=== PATIENT | male | born 1935 | race Caucasian/White ===

== ENCOUNTER → 2016-06-30 | Outpatient (REF) | payer MEDICARE, OTHER ==
[~2016-06-30] MED LIST: /AMLO25TA PO; /GLIM4TA PO; /MOM400 PO; /NITR4TASL SL; ASPI81TA85 PO; CALC500C2 PO; CAPTO25TA PO; CARV25TA PO; CLOP75TA2 PO; COLA50CA3 PO; GEMF600T PO; GLIM4TAB PO; IRON325T3 PO; JANU100T PO; LASI40TA PO; LEVS0.123 PO; MYLI40DR PO; NEXI20CA PO; PROAAER INH; SENO8.6T9 PO; SIMV20TA2 PO; SPIRIVA INH; TYLE325T5 PO
[2016-06-30 11:11] LABS: MEAN CORPUSCULAR HEMOGLOBIN 30.2 pg (27.0-33.0); MEAN CORPUSCULAR HGB CONC 33.5 g/dl (32.0-36.5); RED CELL DISTRIBUTION WIDTH 13.7 % (11.5-14.5); WHITE BLOOD COUNT 6.5 K/mm3 (4.0-10.0)
[2016-06-30 11:16] LABS: ALBUMIN 3.7 GM/DL (3.2-5.2); ALBUMIN/GLOBULIN RATIO 1.19 (1.00-1.93); BILIRUBIN,TOTAL 0.4 MG/DL (0.2-1.0); CALCIUM LEVEL 8.7 MG/DL (8.8-10.2); CREATININE FOR GFR 2.1 MG/DL (0.70-1.30); GLOMERULAR FILTRATION RATE 32.5 (>35); POTASSIUM SERUM 4.2 MEQ/L (3.5-5.1); TOTAL PROTEIN 6.8 GM/DL (6.4-8.2)
== END ==
LOC: M SFHCCLAY 06:55
PROVIDERS: ATTEND Family Medicine
DX: I63.9 Cerebral infarction, unspecified (principal); E11.29 Type 2 diabetes mellitus with other diabetic kidney complication

== ENCOUNTER → 2016-11-02 | Outpatient (REF) | payer MEDICARE, OTHER ==
[2016-11-02 12:27] LABS: ALBUMIN 3.8 GM/DL (3.2-5.2); CREATININE FOR GFR 2.46 MG/DL (0.70-1.30); MAGNESIUM LEVEL 2.3 MG/DL (1.8-2.4); PHOSPHORUS LEVEL 4.4 MG/DL (2.5-4.9); POTASSIUM SERUM 4.2 MEQ/L (3.5-5.1)
== END ==
LOC: M LABDRAWC 11:19
PROVIDERS: ATTEND Physician Assistant
DX: I50.32 Chronic diastolic (congestive) heart failure (principal); E83.42 Hypomagnesemia

== ENCOUNTER → 2016-12-30 | Outpatient (REF) | payer MEDICARE, OTHER ==
[~2016-12-30] MED LIST changes: +ASPI325T24 PO
[2016-12-30 11:51] LABS: MEAN CORPUSCULAR HEMOGLOBIN 31.1 pg (27.0-33.0); MEAN CORPUSCULAR HGB CONC 33.6 g/dl (32.0-36.5); MEAN CORPUSCULAR VOLUME 92.5 fl (80.0-96.0); RED CELL DISTRIBUTION WIDTH 13.4 % (11.5-14.5); WHITE BLOOD COUNT 6.4 K/mm3 (4.0-10.0)
[2016-12-30 12:23] LABS: ALBUMIN 4.2 GM/DL (3.2-5.2); ALBUMIN/GLOBULIN RATIO 1.27 (1.00-1.93); ALKALINE PHOSPHATASE 155 U/L (45-117); ALT/SGPT 14 U/L (12-78); ANION GAP 13 MEQ/L (8-16); AST/SGOT 12 U/L (15-37); BILIRUBIN,TOTAL 0.4 MG/DL (0.2-1.0); BLOOD UREA NITROGEN 52 MG/DL (7-18); CALCIUM LEVEL 9.2 MG/DL (8.8-10.2); CARBON DIOXIDE LEVEL 21 MEQ/L (21-32); CHLORIDE LEVEL 107 MEQ/L (98-107); CHOLESTEROL LEVEL 189 MG/DL (<200); CREATININE FOR GFR 2.22 MG/DL (0.70-1.30); FERRITIN 566 NG/ML (26-388); GLOMERULAR FILTRATION RATE 30.4 (>35); GLUCOSE, FASTING 87 MG/DL (83-110); SODIUM LEVEL 141 MEQ/L (136-145); TOTAL PROTEIN 7.5 GM/DL (6.4-8.2); TRIGLYCERIDES LEVEL 422 MG/DL (<150)
== END ==
LOC: M SFHCCLAY 06:48
PROVIDERS: ATTEND Family Medicine
DX: I63.9 Cerebral infarction, unspecified (principal); E11.29 Type 2 diabetes mellitus with other diabetic kidney complication

== ENCOUNTER 2017-04-21 06:16 | Emergency (ER) | payer MEDICARE, OTHER ==
[~2017-04-21] VITALS: Ht 172.7 cm; Wt 100.0 kg
[~2017-04-21 06:16] MED LIST changes: -ASPI325T24 PO
[2017-04-21] MEDS ORDERED: ALBUTEROL SULFATE 2.5 MG/0.5 ML INH NEB SOLN INH ONE (07:15)
[2017-04-21] MEDS: ASPIRIN 81 MG CHEW TABLET PO ONE ×2 (07:15→07:45)
[2017-04-21] MEDS ORDERED: methylPREDNISolone INJ 125 MG/2 ML VIAL (J2930) IV ONE (07:15)
[2017-04-21] MEDS ORDERED: IPRATROPIUM 0.5MG/ALBUTEROL 2.5MG INH SOL UD 3ML (DUONEB)(J7620) NEB ONE (07:15)
[2017-04-21 07:43] LABS: BASO # 0.1 10^3/uL (0.0-0.2); BASO % 0.8 % (0.0-1.0); EOS # 0.2 10^3/uL (0.0-0.50); EOS % 2.6 % (0.0-3.0); IMMATURE GRANULOCYTE % 0.3 % (0-0); LYMPH # 0.9 10^3/uL (1.5-4.5); LYMPH % 12.9 % (24.0-44.0); MEAN CORPUSCULAR HEMOGLOBIN 30.3 pg (27.0-33.0); MEAN CORPUSCULAR HGB CONC 33.4 g/dl (32.0-36.5); MEAN CORPUSCULAR VOLUME 90.6 fl (80.0-96.0); MONO # 0.6 10^3/uL (0.0-0.8); NEUTROPHILS # 5.5 10^3/uL (1.8-7.7); NEUTROPHILS % 75.4 % (36.0-66.0); PLATELET COUNT, AUTOMATED 227 10^3/uL (150-450); RED CELL DISTRIBUTION WIDTH 13.4 % (11.5-14.5); WHITE BLOOD COUNT 7.2 10^3/uL (4.0-10.0)
[2017-04-21] MEDS ORDERED: FUROSEMIDE 100 MG/10 ML VIAL (J1940) IV ONE (07:45)
[2017-04-21] MEDS ORDERED: ASPIRIN 325 MG TAB As Ordered ONE (07:48)
[2017-04-21 07:51] LABS: ABG BASE EXCESS -2.7 (-2.0-2.0); ABG PARTIAL PRESSURE CO2 38.1 mmHg (35.0-45.0); ABG PARTIAL PRESSURE O2 79.2 mmHg (75.0-100.0); ABG STANDARD HCO3 22.2 MEQ/L (22.0-26.0); ABG TOTAL CO2 23.2 MEQ/L (23.0-31.0)
[2017-04-21 07:59] LABS: INR 1.06
--- NOTE | 2017-04-21 08:05 | REP ---
Portable chest, 07:16 a.m., single AP view, the patient semi upright: Comparison is 05/12/2014. The interstitium is diffusely indistinct compatible with interstitial infiltrates. Cardiomegaly and sternotomy wires are unchanged. The liliana, mediastinum, bony thorax are unchanged. Sternotomy wires are again identified. Impression: Interstitial infiltrates. Chronic cardiomegaly. Sternotomy wires. Signed by Kuldeep Medina MD 04/21/2017 07:57 A
[2017-04-21] MEDS ORDERED: ASPI325T24 PO (08:07)
[2017-04-21 08:21] LABS: ALBUMIN 3.4 GM/DL (3.2-5.2); ALBUMIN/GLOBULIN RATIO 0.92 (1.00-1.93); BILIRUBIN,DIRECT 0.1 MG/DL (0.0-0.2); BILIRUBIN,TOTAL 0.4 MG/DL (0.2-1.0); CREATININE FOR GFR 1.98 MG/DL (0.70-1.30); GLOMERULAR FILTRATION RATE 34.7 (>35); POTASSIUM SERUM 3.8 MEQ/L (3.5-5.1); THYROXINE (T4) 4.8 UG/DL (4.5-12.0); TOTAL PROTEIN 7.1 GM/DL (6.4-8.2)
[2017-04-21] MEDS ORDERED: CLOPIDOGREL 75 MG TAB PO ONE (08:45)
[2017-04-21 09:45] VITALS: BP 194/94
[2017-04-21] MEDS ORDERED: CARVedilol 12.5 MG TAB PO ONE (09:45)
[2017-04-21 09:53] VITALS: BP 194/92
--- NOTE | 2017-04-22 07:18 | ECGEPIP ---
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
== END 2017-04-21 09:57 | disposition short-term general hospital (02) ==
LOC: M ED 07:24
DX: I21.4 Non-ST elevation (NSTEMI) myocardial infarction (principal); I25.10 Atherosclerotic heart disease of native coronary artery without angina pectoris; J44.9 Chronic obstructive pulmonary disease, unspecified; I10 Essential (primary) hypertension; E11.9 Type 2 diabetes mellitus without complications; I25.2 Old myocardial infarction; F17.210 Nicotine dependence, cigarettes, uncomplicated; Z95.1 Presence of aortocoronary bypass graft; Z79.899 Other long term (current) drug therapy; Z79.82 Long term (current) use of aspirin; Z88.1 Allergy status to other antibiotic agents; Z88.0 Allergy status to penicillin; Z88.8 Allergy status to other drugs, medicaments and biological substances
CPT/HCPCS: 36415; 36600; 71010; 80048; 80076; 82550; 82553; 82803; 83605; 83880; 84436; 84443; 84484; 85025; 85610; 87040; 87804; 93005; 93041; 94640; 96374; 96375; 99285; J1940; J2930

== ENCOUNTER → 2017-05-16 | Outpatient (REF) | payer MEDICARE, OTHER ==
[~2017-05-16] MED LIST changes: +ASPI325T24 PO
[2017-05-16 12:44] LABS: ALBUMIN 3.7 GM/DL (3.2-5.2); CALCIUM LEVEL 9.3 MG/DL (8.8-10.2); GLOMERULAR FILTRATION RATE 34.3 (>35); PHOSPHORUS LEVEL 3.7 MG/DL (2.5-4.9); POTASSIUM SERUM 3.9 MEQ/L (3.5-5.1)
== END ==
LOC: M LAB REF 11:40
PROVIDERS: ATTEND Physician Assistant
DX: I50.32 Chronic diastolic (congestive) heart failure (principal)

== ENCOUNTER → 2017-06-29 | Outpatient (REF) | payer MEDICARE, OTHER ==
[2017-06-29 11:47] LABS: HEMATOCRIT 38.5 % (42.0-52.0); HEMOGLOBIN 12.8 g/dl (14.0-18.0); MEAN CORPUSCULAR HEMOGLOBIN 29.6 pg (27.0-33.0); MEAN CORPUSCULAR HGB CONC 33.2 g/dl (32.0-36.5); MEAN CORPUSCULAR VOLUME 88.9 fl (80.0-96.0); PLATELET COUNT, AUTOMATED 188 10^3/uL (150-450); RED BLOOD COUNT 4.33 10^6/uL (4.30-6.10); RED CELL DISTRIBUTION WIDTH 13.4 % (11.5-14.5); WHITE BLOOD COUNT 5.8 10^3/uL (4.0-10.0)
[2017-06-29 12:03] LABS: ESTIMATED AVERAGE GLUCOSE 151 MG/DL (60-110); HEMOGLOBIN A1c 6.9 %
[2017-06-29 12:17] LABS: ALBUMIN 3.7 GM/DL (3.2-5.2); ALBUMIN/GLOBULIN RATIO 1.23 (1.00-1.93); ALKALINE PHOSPHATASE 128 U/L (45-117); ALT/SGPT 12 U/L (12-78); ANION GAP 10 MEQ/L (8-16); AST/SGOT 14 U/L (7-37); BILIRUBIN,TOTAL 0.3 MG/DL (0.2-1.0); BLOOD UREA NITROGEN 29 MG/DL (7-18); CALCIUM LEVEL 8.6 MG/DL (8.8-10.2); CARBON DIOXIDE LEVEL 25 MEQ/L (21-32); CHLORIDE LEVEL 109 MEQ/L (98-107); CHOLESTEROL LEVEL 157 MG/DL (<200); CHOLESTEROL RISK RATIO 4.906 (<5); CREATININE FOR GFR 1.89 MG/DL (0.70-1.30); FERRITIN 461 NG/ML (26-388); GLOMERULAR FILTRATION RATE 36.6 (>35); GLUCOSE, FASTING 123 MG/DL (83-110); HDL CHOLESTEROL 32 MG/DL (>40); LDL CHOLESTEROL 78.6 MG/DL (<100); NON-HDL-C 125 MG/DL; POTASSIUM SERUM 3.6 MEQ/L (3.5-5.1); SODIUM LEVEL 144 MEQ/L (136-145); TOTAL PROTEIN 6.7 GM/DL (6.4-8.2); TRIGLYCERIDES LEVEL 232 MG/DL (<150)
== END ==
LOC: M SFHCCLAY 06:55
DX: I63.9 Cerebral infarction, unspecified (principal); E11.29 Type 2 diabetes mellitus with other diabetic kidney complication
CPT/HCPCS: 80053

== ENCOUNTER → 2017-08-10 | Outpatient (REF) | payer MEDICARE, OTHER ==
[2017-08-10 11:43] LABS: ANION GAP 12 MEQ/L (8-16); BLOOD UREA NITROGEN 50 MG/DL (7-18); CALCIUM LEVEL 9.3 MG/DL (8.8-10.2); CARBON DIOXIDE LEVEL 24 MEQ/L (21-32); CHLORIDE LEVEL 107 MEQ/L (98-107); CREATININE FOR GFR 2.23 MG/DL (0.70-1.30); GLOMERULAR FILTRATION RATE 30.3 (>35); GLUCOSE, FASTING 144 MG/DL (70-100); POTASSIUM SERUM 3.8 MEQ/L (3.5-5.1); SODIUM LEVEL 143 MEQ/L (136-145)
== END ==
LOC: M LABDRAWC 11:07
DX: I50.32 Chronic diastolic (congestive) heart failure (principal)
CPT/HCPCS: 80069

== ENCOUNTER → 2018-01-06 | Outpatient (REF) | payer MEDICARE, OTHER ==
[2018-01-06 12:03] LABS: ALBUMIN 3.8 GM/DL (3.2-5.2); ALBUMIN/GLOBULIN RATIO 1.03 (1.00-1.93); ALKALINE PHOSPHATASE 145 U/L (45-117); ALT/SGPT 15 U/L (12-78); ANION GAP 12 MEQ/L (8-16); AST/SGOT 10 U/L (7-37); BILIRUBIN,TOTAL 0.4 MG/DL (0.2-1.0); BLOOD UREA NITROGEN 75 MG/DL (7-18); CALCIUM LEVEL 8.7 MG/DL (8.8-10.2); CARBON DIOXIDE LEVEL 23 MEQ/L (21-32); CHLORIDE LEVEL 106 MEQ/L (98-107); CHOLESTEROL LEVEL 151 MG/DL (<200); CHOLESTEROL RISK RATIO 4.441 (<5); CREATININE FOR GFR 2.54 MG/DL (0.70-1.30); FERRITIN 528 NG/ML (26-388); GLUCOSE, FASTING 145 MG/DL (70-100); HDL CHOLESTEROL 34 MG/DL (>40); NON-HDL-C 117 MG/DL; POTASSIUM SERUM 4.5 MEQ/L (3.5-5.1); SODIUM LEVEL 141 MEQ/L (136-145); TOTAL PROTEIN 7.5 GM/DL (6.4-8.2); TRIGLYCERIDES LEVEL 300 MG/DL (<150)
[2018-01-06 12:18] LABS: CREATININE, URINE 57.1 MG/DL; MAU/CREAT RATIO 593.6 MCG/MG (0.0-30.0)
[2018-01-06 12:45] LABS: ESTIMATED AVERAGE GLUCOSE 171 MG/DL (60-110); HEMOGLOBIN A1c 7.6 %
== END ==
LOC: M SFHCCLAY 06:58
DX: I63.9 Cerebral infarction, unspecified (principal)
CPT/HCPCS: 80053

== ENCOUNTER → 2018-03-13 | Outpatient (REF) | payer MEDICARE, OTHER ==
[2018-03-13 13:45] LABS: ANION GAP 11 MEQ/L (8-16); BLOOD UREA NITROGEN 45 MG/DL (7-18); CARBON DIOXIDE LEVEL 25 MEQ/L (21-32); CHLORIDE LEVEL 107 MEQ/L (98-107); CREATININE FOR GFR 2.46 MG/DL (0.70-1.30); GLUCOSE, FASTING 73 MG/DL (70-100); POTASSIUM SERUM 3.9 MEQ/L (3.5-5.1); SODIUM LEVEL 143 MEQ/L (136-145)
== END ==
LOC: M LABDRAWC 11:21
DX: I50.32 Chronic diastolic (congestive) heart failure (principal)
CPT/HCPCS: 80048

== ENCOUNTER 2018-04-03 08:40 | Inpatient (IN) | payer MEDICARE, OTHER ==
[2018-04-03 09:35] LABS: BASO % 0.5 % (0.0-1.0); EOS # 0.1 10^3/uL (0.0-0.50); EOS % 1.1 % (0.0-3.0); HEMATOCRIT 38.7 % (42.0-52.0); HEMOGLOBIN 12.6 g/dl (13.5-17.5); IMMATURE GRANULOCYTE % 0.3 % (0-3.0); LYMPH # 1.1 10^3/uL (1.5-4.5); LYMPH % 12.1 % (24.0-44.0); MEAN CORPUSCULAR HEMOGLOBIN 30.5 pg (27.0-33.0); MEAN CORPUSCULAR HGB CONC 32.6 g/dl (32.0-36.5); MEAN CORPUSCULAR VOLUME 93.7 fl (80.0-96.0); MONO % 11.8 % (0.0-5.0); NEUTROPHILS # 6.5 10^3/uL (1.8-7.7); NEUTROPHILS % 74.2 % (36.0-66.0); PLATELET COUNT, AUTOMATED 164 10^3/uL (150-450); RED BLOOD COUNT 4.13 10^6/uL (4.30-6.10); RED CELL DISTRIBUTION WIDTH 13.6 % (11.5-14.5); WHITE BLOOD COUNT 8.8 10^3/uL (4.0-10.0)
[2018-04-03 09:47] LABS: INR 1.19; PROTHROMBIN TIME 15.3 SECONDS (12.1-14.4)
[2018-04-03 10:07] LABS: ALBUMIN 3.3 GM/DL (3.2-5.2); ALBUMIN/GLOBULIN RATIO 0.79 (1.00-1.93); ALKALINE PHOSPHATASE 157 U/L (45-117); ALT/SGPT 8 U/L (12-78); ANION GAP 10 MEQ/L (8-16); AST/SGOT 13 U/L (7-37); BILIRUBIN,DIRECT 0.3 MG/DL (0.0-0.2); BILIRUBIN,TOTAL 0.5 MG/DL (0.2-1.0); BLOOD UREA NITROGEN 42 MG/DL (7-18); CALCIUM LEVEL 9.1 MG/DL (8.8-10.2); CARBON DIOXIDE LEVEL 25 MEQ/L (21-32); CHLORIDE LEVEL 107 MEQ/L (98-107); CPK CREATINE PHOSPHOKINASE 139 U/L (39-308); CREATININE FOR GFR 2.63 MG/DL (0.70-1.30); GLUCOSE, FASTING 114 MG/DL (70-100); LIPASE 88 U/L (73-393); MB/CK RELATIVE INDEX 1.01 (< OR =4); POTASSIUM SERUM 3.7 MEQ/L (3.5-5.1); SODIUM LEVEL 142 MEQ/L (136-145); TOTAL PROTEIN 7.5 GM/DL (6.4-8.2); TROPONIN I 0.05 NG/ML (< 0.10)
[2018-04-03] MEDS ORDERED: DOCUSATE SODIUM 100 MG CAP PO (12:00)
[2018-04-03] MEDS ORDERED: DEXTROSE 50% 50 ML SYRINGE IV (12:00)
[2018-04-03] MEDS ORDERED: GLUCAGON FOR INJ 1 MG VIAL (J1610) SC (12:00)
[2018-04-03] MEDS ORDERED: GLUCOSE 4 GM CHEW TABLET PO (12:00)
[2018-04-03] MEDS ORDERED: ACETAMINOPHEN TAB 650MG DOSE (2X325MG) PO (12:00)
[2018-04-03] MEDS ORDERED: CALCIUM CARBONATE 500 MG CHEW U/D PO (12:00)
[2018-04-03] MEDS: HumaLOG INSULIN (NovoLOG) PER UNIT SC ×3 (12:43→20:48)
[2018-04-03 12:44] LABS: BEDSIDE GLUCOSE 100 MG/DL (83-110)
[2018-04-03] MEDS ORDERED: SLF 3 ML SYR IV (15:15)
[2018-04-03 16:42] LABS: BEDSIDE GLUCOSE 216 MG/DL (83-110)
[2018-04-03] MEDS: GLIMEPIRIDE 2 MG TAB PO (17:39)
[2018-04-03 18:43] LABS: CPK CREATINE PHOSPHOKINASE 200 U/L (39-308); TROPONIN I 0.04 NG/ML (< 0.10)
[2018-04-03 20:05] LABS: BEDSIDE GLUCOSE 130 MG/DL (83-110)
[2018-04-03] MEDS: CARVedilol 12.5 MG TAB PO (20:46)
[2018-04-03] MEDS: ATORVASTATIN 20 MG TAB PO (20:46)
[2018-04-03] MEDS: GEMFIBROZIL 600 MG TAB PO (20:47)
[2018-04-03] MEDS: amLODIPine 5 MG TAB PO (20:47)
[2018-04-03] MEDS: HEPARIN SOD (PORCINE) 5000 UNITS/ML VIAL SQ (20:48)
[2018-04-03] MEDS: SLF 3 ML SYR IV (20:48)
[2018-04-04 00:36] LABS: CPK CREATINE PHOSPHOKINASE 279 U/L (39-308); MB/CK RELATIVE INDEX 0.57 (< OR =4); TROPONIN I 0.05 NG/ML (< 0.10)
[2018-04-04] MEDS: SLF 3 ML SYR IV ×3 (06:12→20:18)
[2018-04-04] MEDS: HEPARIN SOD (PORCINE) 5000 UNITS/ML VIAL SQ ×3 (06:12→20:17)
[2018-04-04 06:57] LABS: BEDSIDE GLUCOSE 107 MG/DL (83-110)
[2018-04-04] MEDS: HumaLOG INSULIN (NovoLOG) PER UNIT SC ×4 (07:30→20:17)
[2018-04-04] MEDS: CLOPIDOGREL 75 MG TAB PO (08:16)
[2018-04-04] MEDS: GEMFIBROZIL 600 MG TAB PO ×2 (08:16→20:17)
[2018-04-04] MEDS: ASPIRIN 325 MG TAB PO (08:16)
[2018-04-04] MEDS: SITagliptin 50 MG TAB (JANUVIA) PO (08:16)
[2018-04-04] MEDS: CARVedilol 12.5 MG TAB PO ×2 (08:17→20:17)
[2018-04-04] MEDS: FERROUS SULFATE 325MG TAB PO (08:17)
[2018-04-04] MEDS: GLIMEPIRIDE 2 MG TAB PO ×2 (08:17→17:46)
[2018-04-04] MEDS: TIOTROPIUM INHALER/CAPSULE (SPIRIVA) INH (08:23)
[2018-04-04 11:36] LABS: BEDSIDE GLUCOSE 241 MG/DL (83-110)
[2018-04-04 17:05] LABS: BEDSIDE GLUCOSE 117 MG/DL (83-110)
[2018-04-04 20:13] LABS: BEDSIDE GLUCOSE 214 MG/DL (83-110)
[2018-04-04] MEDS: ATORVASTATIN 20 MG TAB PO (20:17)
[2018-04-04] MEDS: amLODIPine 5 MG TAB PO (20:17)
[2018-04-05 06:22] LABS: HEMATOCRIT 36.2 % (42.0-52.0); HEMOGLOBIN 11.8 g/dl (13.5-17.5); MEAN CORPUSCULAR HEMOGLOBIN 30.1 pg (27.0-33.0); MEAN CORPUSCULAR HGB CONC 32.6 g/dl (32.0-36.5); MEAN CORPUSCULAR VOLUME 92.3 fl (80.0-96.0); PLATELET COUNT, AUTOMATED 177 10^3/uL (150-450); RED BLOOD COUNT 3.92 10^6/uL (4.30-6.10); RED CELL DISTRIBUTION WIDTH 13.2 % (11.5-14.5); WHITE BLOOD COUNT 5.4 10^3/uL (4.0-10.0)
[2018-04-05] MEDS: HEPARIN SOD (PORCINE) 5000 UNITS/ML VIAL SQ ×3 (06:49→20:05)
[2018-04-05] MEDS: SLF 3 ML SYR IV ×3 (06:49→20:05)
[2018-04-05 06:57] LABS: ALBUMIN 2.6 GM/DL (3.2-5.2); ALBUMIN/GLOBULIN RATIO 0.58 (1.00-1.93); ALKALINE PHOSPHATASE 140 U/L (45-117); ALT/SGPT 16 U/L (12-78); ANION GAP 10 MEQ/L (8-16); AST/SGOT 30 U/L (7-37); BILIRUBIN,TOTAL 0.7 MG/DL (0.2-1.0); BLOOD UREA NITROGEN 43 MG/DL (7-18); CALCIUM LEVEL 8.8 MG/DL (8.8-10.2); CARBON DIOXIDE LEVEL 24 MEQ/L (21-32); CHLORIDE LEVEL 108 MEQ/L (98-107); CREATININE FOR GFR 2.06 MG/DL (0.70-1.30); GLOMERULAR FILTRATION RATE 33.1 (>35); GLUCOSE, FASTING 102 MG/DL (70-100); MAGNESIUM LEVEL 2.2 MG/DL (1.8-2.4); POTASSIUM SERUM 3.4 MEQ/L (3.5-5.1); SODIUM LEVEL 142 MEQ/L (136-145); TOTAL PROTEIN 7.1 GM/DL (6.4-8.2)
[2018-04-05] MEDS: TIOTROPIUM INHALER/CAPSULE (SPIRIVA) INH (08:09)
[2018-04-05] MEDS: SITagliptin 50 MG TAB (JANUVIA) PO (09:05)
[2018-04-05] MEDS: HumaLOG INSULIN (NovoLOG) PER UNIT SC ×4 (09:05→20:01)
[2018-04-05] MEDS: ASPIRIN 325 MG TAB PO (09:05)
[2018-04-05] MEDS: GEMFIBROZIL 600 MG TAB PO ×2 (09:06→20:04)
[2018-04-05] MEDS: CLOPIDOGREL 75 MG TAB PO (09:06)
[2018-04-05] MEDS: GLIMEPIRIDE 2 MG TAB PO ×2 (09:06→17:19)
[2018-04-05] MEDS: FERROUS SULFATE 325MG TAB PO (09:06)
[2018-04-05] MEDS: CARVedilol 12.5 MG TAB PO ×2 (09:07→20:04)
[2018-04-05 12:09] LABS: BEDSIDE GLUCOSE 162 MG/DL (83-110)
[2018-04-05] MEDS: FUROSEMIDE 20 MG TAB PO ×2 (13:02→16:39)
[2018-04-05 16:35] LABS: BEDSIDE GLUCOSE 199 MG/DL (83-110)
[2018-04-05] MEDS: ATORVASTATIN 20 MG TAB PO (20:03)
[2018-04-05] MEDS: amLODIPine 5 MG TAB PO (20:04)
[2018-04-05 20:26] LABS: BEDSIDE GLUCOSE 168 MG/DL (83-110)
[2018-04-06] MEDS: HEPARIN SOD (PORCINE) 5000 UNITS/ML VIAL SQ (06:00)
[2018-04-06] MEDS: SLF 3 ML SYR IV (06:00)
[2018-04-06 06:29] LABS: HEMATOCRIT 33.9 % (42.0-52.0); HEMOGLOBIN 10.9 g/dl (13.5-17.5); MEAN CORPUSCULAR HEMOGLOBIN 29.9 pg (27.0-33.0); MEAN CORPUSCULAR HGB CONC 32.2 g/dl (32.0-36.5); MEAN CORPUSCULAR VOLUME 92.9 fl (80.0-96.0); PLATELET COUNT, AUTOMATED 181 10^3/uL (150-450); RED BLOOD COUNT 3.65 10^6/uL (4.30-6.10); RED CELL DISTRIBUTION WIDTH 13.1 % (11.5-14.5); WHITE BLOOD COUNT 5.5 10^3/uL (4.0-10.0)
[2018-04-06 06:45] LABS: ALBUMIN 2.5 GM/DL (3.2-5.2); ALBUMIN/GLOBULIN RATIO 0.54 (1.00-1.93); ALKALINE PHOSPHATASE 135 U/L (45-117); ALT/SGPT 24 U/L (12-78); ANION GAP 10 MEQ/L (8-16); AST/SGOT 42 U/L (7-37); BILIRUBIN,TOTAL 0.6 MG/DL (0.2-1.0); BLOOD UREA NITROGEN 49 MG/DL (7-18); CALCIUM LEVEL 8.9 MG/DL (8.8-10.2); CARBON DIOXIDE LEVEL 25 MEQ/L (21-32); CHLORIDE LEVEL 108 MEQ/L (98-107); CREATININE FOR GFR 2.19 MG/DL (0.70-1.30); GLOMERULAR FILTRATION RATE 30.8 (>35); GLUCOSE, FASTING 61 MG/DL (70-100); MAGNESIUM LEVEL 2.3 MG/DL (1.8-2.4); POTASSIUM SERUM 3.6 MEQ/L (3.5-5.1); SODIUM LEVEL 143 MEQ/L (136-145); TOTAL PROTEIN 7.1 GM/DL (6.4-8.2)
[2018-04-06] MEDS: HumaLOG INSULIN (NovoLOG) PER UNIT SC ×2 (07:30→12:00)
[2018-04-06 07:52] LABS: BEDSIDE GLUCOSE 96 MG/DL (83-110)
[2018-04-06] MEDS: TIOTROPIUM INHALER/CAPSULE (SPIRIVA) INH (07:58)
[2018-04-06] MEDS: SITagliptin 50 MG TAB (JANUVIA) PO (08:51)
[2018-04-06] MEDS: CLOPIDOGREL 75 MG TAB PO (08:51)
[2018-04-06] MEDS: GEMFIBROZIL 600 MG TAB PO (08:52)
[2018-04-06] MEDS: FERROUS SULFATE 325MG TAB PO (08:52)
[2018-04-06] MEDS: POTASSIUM CHLORIDE 10 MEQ SR TABLET PO (08:52)
[2018-04-06] MEDS: ASPIRIN 325 MG TAB PO (08:52)
[2018-04-06] MEDS: FUROSEMIDE 20 MG TAB PO (08:52)
[2018-04-06] MEDS: CARVedilol 12.5 MG TAB PO (08:53)
[2018-04-06] MEDS: GLIMEPIRIDE 2 MG TAB PO (08:53)
[2018-04-07 14:26] LABS: BEDSIDE GLUCOSE 211 MG/DL (83-110)
== END 2018-04-06 13:12 | disposition home health service (06) | DRG 312 ==
LOC: M MSPAV 04-06 09:38 → M ED 08:40 → M ED INP 11:47 → M PCU 15:05
DX: I95.1 Orthostatic hypotension (principal); N18.4 Chronic kidney disease, stage 4 (severe); I50.32 Chronic diastolic (congestive) heart failure; I25.10 Atherosclerotic heart disease of native coronary artery without angina pectoris; E11.22 Type 2 diabetes mellitus with diabetic chronic kidney disease; T50.2X5A Adverse effect of carbonic-anhydrase inhibitors, benzothiadiazides and other diuretics, initial encounter; J44.9 Chronic obstructive pulmonary disease, unspecified; I50.812 Chronic right heart failure; R26.89 Other abnormalities of gait and mobility; Z95.1 Presence of aortocoronary bypass graft; Z86.73 Personal history of transient ischemic attack (TIA), and cerebral infarction without residual deficits; Z79.82 Long term (current) use of aspirin; Z79.899 Other long term (current) drug therapy; Z79.02 Long term (current) use of antithrombotics/antiplatelets; Z88.0 Allergy status to penicillin; Z88.1 Allergy status to other antibiotic agents; R09.02 Hypoxemia; Z99.81 Dependence on supplemental oxygen; Z79.84 Long term (current) use of oral hypoglycemic drugs; I27.20 Pulmonary hypertension, unspecified

== ENCOUNTER 2018-04-10 09:12 | Inpatient (IN) | payer MEDICARE, OTHER ==
[2018-04-10] MEDS: TIOTROPIUM INHALER/CAPSULE (SPIRIVA) INH (08:00)
[2018-04-10] MEDS ORDERED: NS 1,000 ML IV (09:26)
[2018-04-10] MEDS: IPRATROPIUM 0.5MG/ALBUTEROL 2.5MG INH SOL UD 3ML (DUONEB)(J7620) NEB ×3 (09:39→20:34)
[2018-04-10] MEDS: ALBUTEROL SULFATE 2.5 MG/0.5 ML INH NEB SOLN INH (09:39)
[2018-04-10 09:53] LABS: BASO % 0.5 % (0.0-1.0); EOS # 0.2 10^3/uL (0.0-0.50); EOS % 2.1 % (0.0-3.0); HEMOGLOBIN 11.9 g/dl (13.5-17.5); IMMATURE GRANULOCYTE % 1.7 % (0-3.0); LYMPH # 0.8 10^3/uL (1.5-4.5); LYMPH % 10.4 % (24.0-44.0); MEAN CORPUSCULAR HEMOGLOBIN 29.8 pg (27.0-33.0); MEAN CORPUSCULAR HGB CONC 31.3 g/dl (32.0-36.5); MONO # 0.7 10^3/uL (0.0-0.8); MONO % 8.3 % (0.0-5.0); NEUTROPHILS # 6.2 10^3/uL (1.8-7.7); PLATELET COUNT, AUTOMATED 254 10^3/uL (150-450); RED CELL DISTRIBUTION WIDTH 13.7 % (11.5-14.5)
[2018-04-10 09:55] LABS: ABG BASE EXCESS -0.9 (-2.0-2.0); ABG HCO3 23.2 MEQ/L (22.0-26.0); ABG O2 SATURATION 99.4 % (95.0-99.0); ABG PARTIAL PRESSURE CO2 36.1 mmHg (35.0-45.0); ABG PARTIAL PRESSURE O2 205.2 mmHg (75.0-100.0); ABG STANDARD HCO3 23.8 MEQ/L (22.0-26.0); ABG TOTAL CO2 24.3 MEQ/L (23.0-31.0); ABG pH (ARTERIAL) 7.425 UNITS (7.350-7.450)
[2018-04-10 10:05] LABS: INR 1.26
[2018-04-10 10:06] LABS: PARTIAL THROMBOPLASTIN TIME 36.1 SECONDS (25.4-37.6)
[2018-04-10 10:27] LABS: ALBUMIN 2.4 GM/DL (3.2-5.2); ALKALINE PHOSPHATASE 186 U/L (45-117); ALT/SGPT 27 U/L (12-78); ANION GAP 9 MEQ/L (8-16); AST/SGOT 30 U/L (7-37); BILIRUBIN,DIRECT 0.4 MG/DL (0.0-0.2); BILIRUBIN,TOTAL 0.5 MG/DL (0.2-1.0); BLOOD UREA NITROGEN 49 MG/DL (7-18); CALCIUM LEVEL 9.2 MG/DL (8.8-10.2); CARBON DIOXIDE LEVEL 26 MEQ/L (21-32); CHLORIDE LEVEL 111 MEQ/L (98-107); CPK CREATINE PHOSPHOKINASE 241 U/L (39-308); CREATININE FOR GFR 2.03 MG/DL (0.70-1.30); FREE T4 0.82 NG/DL (0.76-1.46); GLOMERULAR FILTRATION RATE 33.6 (>35); GLUCOSE, FASTING 72 MG/DL (70-100); LIPASE 156 U/L (73-393); MB/CK RELATIVE INDEX 0.71 (< OR =4); NT-PRO BNP 2915 PG/ML (<450); POTASSIUM SERUM 3.5 MEQ/L (3.5-5.1); SODIUM LEVEL 146 MEQ/L (136-145); TOTAL PROTEIN 7.2 GM/DL (6.4-8.2); TROPONIN I 0.03 NG/ML (< 0.10)
[2018-04-10] MEDS ORDERED: NITROGLYCERIN 0.4 MG SUBL TABLET SL (12:30)
[2018-04-10] MEDS ORDERED: DEXTROSE 50% 50 ML SYRINGE IV (12:30)
[2018-04-10] MEDS ORDERED: GLUCAGON FOR INJ 1 MG VIAL (J1610) SC (12:30)
[2018-04-10] MEDS ORDERED: CALCIUM CARBONATE 500 MG CHEW U/D PO (12:30)
[2018-04-10] MEDS: CARVedilol 12.5 MG TAB PO ×2 (15:00→20:44)
[2018-04-10] MEDS: HEPARIN SOD (PORCINE) 5000 UNITS/ML VIAL SC ×2 (15:00→20:52)
[2018-04-10] MEDS: CLOPIDOGREL 75 MG TAB PO (15:01)
[2018-04-10] MEDS: FERROUS SULFATE 325MG TAB PO (15:01)
[2018-04-10] MEDS: GEMFIBROZIL 600 MG TAB PO ×2 (15:01→20:45)
[2018-04-10] MEDS: amLODIPine 10 MG TAB PO (15:01)
[2018-04-10] MEDS: SENOKOT S TAB PO ×2 (15:01→20:45)
[2018-04-10] MEDS: ERYTHROMYCIN OPHTH OINT OU ×2 (15:02→20:45)
[2018-04-10] MEDS: FUROSEMIDE 40 MG/4 ML VIAL (J1940) IV (15:02)
[2018-04-10 15:42] LABS: CPK CREATINE PHOSPHOKINASE 230 U/L (39-308); MB/CK RELATIVE INDEX 0.65 (< OR =4); TROPONIN I 0.04 NG/ML (< 0.10)
[2018-04-10 16:40] LABS: BEDSIDE GLUCOSE 115 MG/DL (83-110)
[2018-04-10] MEDS: HumaLOG INSULIN (NovoLOG) PER UNIT SC ×2 (18:51→20:45)
[2018-04-10 20:30] LABS: KETONE, URINE AUTO RFX NEGATIVE (NEGATIVE); LEUKOCYTE ESTERASE UR AUTO RFX NEGATIVE (NEGATIVE); NITRITE, URINE AUTO RFX NEGATIVE (NEGATIVE); RBC, URINE AUTO RFX 1 /HPF (0-3); SQUAM EPITHELIAL CELL UR AURFX 0 /HPF (0-6); WBC, URINE AUTO RFX 0 /HPF (0-3)
[2018-04-10 20:33] LABS: BEDSIDE GLUCOSE 69 MG/DL (83-110)
[2018-04-10] MEDS: CALCITRIOL 0.25 MCG CAP (S0169) PO (20:44)
[2018-04-10] MEDS: ATORVASTATIN 20 MG TAB PO (20:44)
[2018-04-10 21:09] LABS: BEDSIDE GLUCOSE 82 MG/DL (83-110)
[2018-04-10 21:49] LABS: CPK CREATINE PHOSPHOKINASE 249 U/L (39-308); MB/CK RELATIVE INDEX 0.64 (< OR =4); TROPONIN I 0.04 NG/ML (< 0.10)
[2018-04-11] MEDS: IPRATROPIUM 0.5MG/ALBUTEROL 2.5MG INH SOL UD 3ML (DUONEB)(J7620) NEB ×5 (01:27→20:49)
[2018-04-11 03:58] LABS: BEDSIDE GLUCOSE 61 MG/DL (83-110)
[2018-04-11 04:26] LABS: BEDSIDE GLUCOSE 83 MG/DL (83-110)
[2018-04-11] MEDS: HEPARIN SOD (PORCINE) 5000 UNITS/ML VIAL SC ×3 (05:15→21:24)
[2018-04-11 05:38] LABS: HEMATOCRIT 35.8 % (42.0-52.0); HEMOGLOBIN 11.3 g/dl (13.5-17.5); MEAN CORPUSCULAR HEMOGLOBIN 29.4 pg (27.0-33.0); MEAN CORPUSCULAR HGB CONC 31.6 g/dl (32.0-36.5); MEAN CORPUSCULAR VOLUME 93.2 fl (80.0-96.0); PLATELET COUNT, AUTOMATED 249 10^3/uL (150-450); RED BLOOD COUNT 3.84 10^6/uL (4.30-6.10); RED CELL DISTRIBUTION WIDTH 13.4 % (11.5-14.5); WHITE BLOOD COUNT 7.3 10^3/uL (4.0-10.0)
[2018-04-11 06:04] LABS: ANION GAP 10 MEQ/L (8-16); BLOOD UREA NITROGEN 45 MG/DL (7-18); CALCIUM LEVEL 8.6 MG/DL (8.8-10.2); CARBON DIOXIDE LEVEL 25 MEQ/L (21-32); CHLORIDE LEVEL 110 MEQ/L (98-107); CREATININE FOR GFR 1.83 MG/DL (0.70-1.30); GLOMERULAR FILTRATION RATE 37.9 (>35); GLUCOSE, FASTING 102 MG/DL (70-100); POTASSIUM SERUM 3.6 MEQ/L (3.5-5.1); SODIUM LEVEL 145 MEQ/L (136-145)
[2018-04-11] MEDS: HumaLOG INSULIN (NovoLOG) PER UNIT SC ×4 (07:30→20:11)
[2018-04-11] MEDS: TIOTROPIUM INHALER/CAPSULE (SPIRIVA) INH (07:55)
[2018-04-11] MEDS: FUROSEMIDE 40 MG/4 ML VIAL (J1940) IV ×2 (08:19→16:44)
[2018-04-11] MEDS: SENOKOT S TAB PO ×2 (08:19→20:20)
[2018-04-11] MEDS: GEMFIBROZIL 600 MG TAB PO ×2 (08:20→20:20)
[2018-04-11] MEDS: FERROUS SULFATE 325MG TAB PO (08:20)
[2018-04-11] MEDS: CLOPIDOGREL 75 MG TAB PO (08:20)
[2018-04-11] MEDS: amLODIPine 10 MG TAB PO (08:20)
[2018-04-11] MEDS: CARVedilol 12.5 MG TAB PO ×2 (08:20→20:20)
[2018-04-11] MEDS: ASPIRIN 325 MG TAB PO (08:20)
[2018-04-11] MEDS: ERYTHROMYCIN OPHTH OINT OU ×2 (08:28→20:21)
[2018-04-11 17:02] LABS: BEDSIDE GLUCOSE 110 MG/DL (83-110)
[2018-04-11 20:11] LABS: BEDSIDE GLUCOSE 135 MG/DL (83-110)
[2018-04-11] MEDS: ATORVASTATIN 20 MG TAB PO (20:19)
[2018-04-11] MEDS: CALCITRIOL 0.25 MCG CAP (S0169) PO (20:19)
[2018-04-12] MEDS: IPRATROPIUM 0.5MG/ALBUTEROL 2.5MG INH SOL UD 3ML (DUONEB)(J7620) NEB ×4 (02:00→19:38)
[2018-04-12 05:15] LABS: HEMATOCRIT 35.8 % (42.0-52.0); HEMOGLOBIN 11.5 g/dl (13.5-17.5); MEAN CORPUSCULAR HEMOGLOBIN 29.9 pg (27.0-33.0); MEAN CORPUSCULAR HGB CONC 32.1 g/dl (32.0-36.5); MEAN CORPUSCULAR VOLUME 93.2 fl (80.0-96.0); PLATELET COUNT, AUTOMATED 222 10^3/uL (150-450); RED BLOOD COUNT 3.84 10^6/uL (4.30-6.10); RED CELL DISTRIBUTION WIDTH 13.4 % (11.5-14.5); WHITE BLOOD COUNT 7.5 10^3/uL (4.0-10.0)
[2018-04-12] MEDS: HEPARIN SOD (PORCINE) 5000 UNITS/ML VIAL SC ×3 (05:41→20:14)
[2018-04-12 05:49] LABS: ANION GAP 9 MEQ/L (8-16); BLOOD UREA NITROGEN 42 MG/DL (7-18); CALCIUM LEVEL 8.7 MG/DL (8.8-10.2); CARBON DIOXIDE LEVEL 29 MEQ/L (21-32); CHLORIDE LEVEL 107 MEQ/L (98-107); CREATININE FOR GFR 1.82 MG/DL (0.70-1.30); GLOMERULAR FILTRATION RATE 38.2 (>35); GLUCOSE, FASTING 54 MG/DL (70-100); POTASSIUM SERUM 3.6 MEQ/L (3.5-5.1); SODIUM LEVEL 145 MEQ/L (136-145)
[2018-04-12 05:59] LABS: BEDSIDE GLUCOSE 56 MG/DL (83-110)
[2018-04-12] MEDS: GLUCOSE 4 GM CHEW TABLET PO (06:13)
[2018-04-12 06:38] LABS: BEDSIDE GLUCOSE 86 MG/DL (83-110)
[2018-04-12] MEDS: HumaLOG INSULIN (NovoLOG) PER UNIT SC ×3 (07:24→17:30)
[2018-04-12] MEDS: TIOTROPIUM INHALER/CAPSULE (SPIRIVA) INH (09:14)
[2018-04-12] MEDS: CARVedilol 12.5 MG TAB PO ×2 (09:20→20:13)
[2018-04-12] MEDS: ASPIRIN 325 MG TAB PO (09:20)
[2018-04-12] MEDS: FUROSEMIDE 40 MG/4 ML VIAL (J1940) IV ×3 (09:20→17:41)
[2018-04-12] MEDS: GEMFIBROZIL 600 MG TAB PO ×2 (09:20→20:12)
[2018-04-12] MEDS: FERROUS SULFATE 325MG TAB PO (09:20)
[2018-04-12] MEDS: amLODIPine 10 MG TAB PO (09:20)
[2018-04-12] MEDS: SENOKOT S TAB PO ×2 (09:20→20:13)
[2018-04-12] MEDS: CLOPIDOGREL 75 MG TAB PO (09:20)
[2018-04-12] MEDS: ERYTHROMYCIN OPHTH OINT OU ×2 (09:23→20:14)
[2018-04-12 09:55] LABS: ESTIMATED AVERAGE GLUCOSE 151 MG/DL (60-110); HEMOGLOBIN A1c 6.9 %
[2018-04-12 12:03] LABS: BEDSIDE GLUCOSE 260 MG/DL (83-110)
[2018-04-12 16:45] LABS: BEDSIDE GLUCOSE 118 MG/DL (83-110)
[2018-04-12 19:59] LABS: BEDSIDE GLUCOSE 123 MG/DL (83-110)
[2018-04-12] MEDS: CALCITRIOL 0.25 MCG CAP (S0169) PO (20:12)
[2018-04-12] MEDS: ATORVASTATIN 20 MG TAB PO (20:13)
[2018-04-13] MEDS: FUROSEMIDE 40 MG/4 ML VIAL (J1940) IV ×3 (00:18→17:18)
[2018-04-13] MEDS: IPRATROPIUM 0.5MG/ALBUTEROL 2.5MG INH SOL UD 3ML (DUONEB)(J7620) NEB ×4 (01:32→19:59)
[2018-04-13 06:11] LABS: HEMATOCRIT 35.2 % (42.0-52.0); HEMOGLOBIN 11.3 g/dl (13.5-17.5); MEAN CORPUSCULAR HEMOGLOBIN 29.5 pg (27.0-33.0); MEAN CORPUSCULAR HGB CONC 32.1 g/dl (32.0-36.5); MEAN CORPUSCULAR VOLUME 91.9 fl (80.0-96.0); PLATELET COUNT, AUTOMATED 233 10^3/uL (150-450); RED BLOOD COUNT 3.83 10^6/uL (4.30-6.10); RED CELL DISTRIBUTION WIDTH 13.1 % (11.5-14.5); WHITE BLOOD COUNT 7.7 10^3/uL (4.0-10.0)
[2018-04-13] MEDS: HEPARIN SOD (PORCINE) 5000 UNITS/ML VIAL SC ×3 (06:26→22:10)
[2018-04-13 06:29] LABS: ANION GAP 7 MEQ/L (8-16); BLOOD UREA NITROGEN 40 MG/DL (7-18); CALCIUM LEVEL 9.1 MG/DL (8.8-10.2); CARBON DIOXIDE LEVEL 31 MEQ/L (21-32); CHLORIDE LEVEL 106 MEQ/L (98-107); CREATININE FOR GFR 1.82 MG/DL (0.70-1.30); GLOMERULAR FILTRATION RATE 38.2 (>35); GLUCOSE, FASTING 46 MG/DL (70-100); POTASSIUM SERUM 3.2 MEQ/L (3.5-5.1); SODIUM LEVEL 144 MEQ/L (136-145)
[2018-04-13] MEDS: TIOTROPIUM INHALER/CAPSULE (SPIRIVA) INH (07:09)
[2018-04-13] MEDS: HumaLOG INSULIN (NovoLOG) PER UNIT SC ×3 (07:30→17:18)
[2018-04-13] MEDS: ASPIRIN 325 MG TAB PO (08:26)
[2018-04-13] MEDS: CLOPIDOGREL 75 MG TAB PO (08:26)
[2018-04-13] MEDS: FERROUS SULFATE 325MG TAB PO (08:26)
[2018-04-13] MEDS: amLODIPine 10 MG TAB PO (08:26)
[2018-04-13] MEDS: GEMFIBROZIL 600 MG TAB PO ×2 (08:26→22:09)
[2018-04-13] MEDS: SENOKOT S TAB PO ×2 (08:26→22:10)
[2018-04-13] MEDS: CARVedilol 12.5 MG TAB PO ×2 (08:27→22:09)
[2018-04-13] MEDS: ERYTHROMYCIN OPHTH OINT OU ×2 (08:27→22:11)
[2018-04-13 11:23] LABS: BEDSIDE GLUCOSE 223 MG/DL (83-110)
[2018-04-13] MEDS: POTASSIUM CHLORIDE 10 MEQ SR TABLET PO (12:49)
[2018-04-13 15:09] LABS: BEDSIDE GLUCOSE 150 MG/DL (83-110)
[2018-04-13 16:47] LABS: BEDSIDE GLUCOSE 270 MG/DL (83-110)
[2018-04-13 20:00] LABS: BEDSIDE GLUCOSE 130 MG/DL (83-110)
[2018-04-13] MEDS: ATORVASTATIN 20 MG TAB PO (22:08)
[2018-04-13] MEDS: CALCITRIOL 0.25 MCG CAP (S0169) PO (22:09)
[2018-04-14] MEDS: FUROSEMIDE 40 MG/4 ML VIAL (J1940) IV ×3 (00:20→16:00)
[2018-04-14] MEDS: IPRATROPIUM 0.5MG/ALBUTEROL 2.5MG INH SOL UD 3ML (DUONEB)(J7620) NEB ×4 (01:54→19:44)
[2018-04-14 06:29] LABS: HEMOGLOBIN 11.1 g/dl (13.5-17.5); MEAN CORPUSCULAR HEMOGLOBIN 29.2 pg (27.0-33.0); MEAN CORPUSCULAR HGB CONC 31.7 g/dl (32.0-36.5); MEAN CORPUSCULAR VOLUME 92.1 fl (80.0-96.0); PLATELET COUNT, AUTOMATED 232 10^3/uL (150-450); RED CELL DISTRIBUTION WIDTH 12.9 % (11.5-14.5)
[2018-04-14 06:31] LABS: ANION GAP 8 MEQ/L (8-16); BLOOD UREA NITROGEN 44 MG/DL (7-18); CALCIUM LEVEL 8.8 MG/DL (8.8-10.2); CARBON DIOXIDE LEVEL 30 MEQ/L (21-32); CHLORIDE LEVEL 106 MEQ/L (98-107); CREATININE FOR GFR 1.92 MG/DL (0.70-1.30); GLOMERULAR FILTRATION RATE 35.9 (>35); GLUCOSE, FASTING 89 MG/DL (70-100); POTASSIUM SERUM 3.6 MEQ/L (3.5-5.1); SODIUM LEVEL 144 MEQ/L (136-145)
[2018-04-14] MEDS: HEPARIN SOD (PORCINE) 5000 UNITS/ML VIAL SC ×3 (06:33→22:07)
[2018-04-14] MEDS: HumaLOG INSULIN (NovoLOG) PER UNIT SC ×4 (07:30→21:00)
[2018-04-14] MEDS: TIOTROPIUM INHALER/CAPSULE (SPIRIVA) INH (07:40)
[2018-04-14] MEDS: amLODIPine 10 MG TAB PO (09:00)
[2018-04-14] MEDS: CARVedilol 12.5 MG TAB PO ×2 (09:00→22:08)
[2018-04-14] MEDS: FERROUS SULFATE 325MG TAB PO (11:05)
[2018-04-14] MEDS: CLOPIDOGREL 75 MG TAB PO (11:05)
[2018-04-14] MEDS: GEMFIBROZIL 600 MG TAB PO ×2 (11:05→22:07)
[2018-04-14] MEDS: SENOKOT S TAB PO ×2 (11:05→22:07)
[2018-04-14] MEDS: ASPIRIN 325 MG TAB PO (11:05)
[2018-04-14] MEDS: ERYTHROMYCIN OPHTH OINT OU ×2 (11:06→22:08)
[2018-04-14 11:30] LABS: BEDSIDE GLUCOSE 237 MG/DL (83-110)
[2018-04-14 16:25] LABS: BEDSIDE GLUCOSE 149 MG/DL (83-110)
[2018-04-14] MEDS: FUROSEMIDE 20 MG TAB PO (18:07)
[2018-04-14 21:46] LABS: BEDSIDE GLUCOSE 90 MG/DL (83-110)
[2018-04-14] MEDS: ATORVASTATIN 20 MG TAB PO (22:06)
[2018-04-14] MEDS: CALCITRIOL 0.25 MCG CAP (S0169) PO (22:07)
[2018-04-15] MEDS: IPRATROPIUM 0.5MG/ALBUTEROL 2.5MG INH SOL UD 3ML (DUONEB)(J7620) NEB ×2 (02:00→07:23)
[2018-04-15] MEDS: HEPARIN SOD (PORCINE) 5000 UNITS/ML VIAL SC ×2 (05:39→13:13)
[2018-04-15 06:07] LABS: HEMATOCRIT 34.7 % (42.0-52.0); HEMOGLOBIN 11.3 g/dl (13.5-17.5); MEAN CORPUSCULAR HEMOGLOBIN 29.5 pg (27.0-33.0); MEAN CORPUSCULAR HGB CONC 32.6 g/dl (32.0-36.5); MEAN CORPUSCULAR VOLUME 90.6 fl (80.0-96.0); PLATELET COUNT, AUTOMATED 219 10^3/uL (150-450); RED BLOOD COUNT 3.83 10^6/uL (4.30-6.10); WHITE BLOOD COUNT 8.2 10^3/uL (4.0-10.0)
[2018-04-15 06:46] LABS: ANION GAP 9 MEQ/L (8-16); BLOOD UREA NITROGEN 41 MG/DL (7-18); CALCIUM LEVEL 8.8 MG/DL (8.8-10.2); CARBON DIOXIDE LEVEL 30 MEQ/L (21-32); CHLORIDE LEVEL 102 MEQ/L (98-107); CREATININE FOR GFR 1.79 MG/DL (0.70-1.30); GLOMERULAR FILTRATION RATE 38.9 (>35); GLUCOSE, FASTING 74 MG/DL (70-100); POTASSIUM SERUM 3.4 MEQ/L (3.5-5.1); SODIUM LEVEL 141 MEQ/L (136-145)
[2018-04-15] MEDS: TIOTROPIUM INHALER/CAPSULE (SPIRIVA) INH (07:24)
[2018-04-15] MEDS: HumaLOG INSULIN (NovoLOG) PER UNIT SC ×2 (07:30→11:44)
[2018-04-15] MEDS: SENOKOT S TAB PO (08:45)
[2018-04-15] MEDS: FUROSEMIDE 20 MG TAB PO (08:45)
[2018-04-15] MEDS: GEMFIBROZIL 600 MG TAB PO (08:45)
[2018-04-15] MEDS: ASPIRIN 325 MG TAB PO (08:45)
[2018-04-15] MEDS: POTASSIUM CHLORIDE 10 MEQ SR TABLET PO (08:45)
[2018-04-15] MEDS: FERROUS SULFATE 325MG TAB PO (08:45)
[2018-04-15] MEDS: CLOPIDOGREL 75 MG TAB PO (08:46)
[2018-04-15] MEDS: ERYTHROMYCIN OPHTH OINT OU (08:46)
[2018-04-15] MEDS: amLODIPine 10 MG TAB PO (08:50)
[2018-04-15] MEDS: CARVedilol 12.5 MG TAB PO (08:51)
[2018-04-15 11:19] LABS: BEDSIDE GLUCOSE 217 MG/DL (83-110)
== END 2018-04-15 13:33 | disposition home health service (06) | DRG 291 ==
LOC: M MSPAV 04-12 15:11 → M ED 09:12 → M ED INP 12:20 → M PCU 14:10
DX: I13.0 Hypertensive heart and chronic kidney disease with heart failure and stage 1 through stage 4 chronic kidney disease, or unspecified chronic kidney disease (principal); I50.33 Acute on chronic diastolic (congestive) heart failure; N18.3 Chronic kidney disease, stage 3 (moderate); I25.10 Atherosclerotic heart disease of native coronary artery without angina pectoris; E11.22 Type 2 diabetes mellitus with diabetic chronic kidney disease; H10.33 Unspecified acute conjunctivitis, bilateral; J44.9 Chronic obstructive pulmonary disease, unspecified; R09.02 Hypoxemia; Z95.1 Presence of aortocoronary bypass graft; Z99.81 Dependence on supplemental oxygen; Z79.82 Long term (current) use of aspirin; Z79.84 Long term (current) use of oral hypoglycemic drugs; Z79.899 Other long term (current) drug therapy; Z88.0 Allergy status to penicillin; Z88.1 Allergy status to other antibiotic agents; Z86.73 Personal history of transient ischemic attack (TIA), and cerebral infarction without residual deficits; Z79.02 Long term (current) use of antithrombotics/antiplatelets

== ENCOUNTER 2018-04-17 07:10 | Inpatient (IN) | payer MEDICARE, OTHER ==
[2018-04-17 07:51] LABS: BASO # 0.1 10^3/uL (0.0-0.2); BASO % 0.5 % (0.0-1.0); EOS # 0.2 10^3/uL (0.0-0.50); EOS % 1.6 % (0.0-3.0); HEMATOCRIT 36.7 % (42.0-52.0); HEMOGLOBIN 11.7 g/dl (13.5-17.5); IMMATURE GRANULOCYTE % 2.2 % (0-3.0); LYMPH # 1.4 10^3/uL (1.5-4.5); MEAN CORPUSCULAR HEMOGLOBIN 29.8 pg (27.0-33.0); MEAN CORPUSCULAR HGB CONC 31.9 g/dl (32.0-36.5); MEAN CORPUSCULAR VOLUME 93.4 fl (80.0-96.0); MONO # 0.8 10^3/uL (0.0-0.8); MONO % 6.9 % (0.0-5.0); NEUTROPHILS % 76.8 % (36.0-66.0); PLATELET COUNT, AUTOMATED 263 10^3/uL (150-450); RED BLOOD COUNT 3.93 10^6/uL (4.30-6.10); RED CELL DISTRIBUTION WIDTH 13.2 % (11.5-14.5); WHITE BLOOD COUNT 11.7 10^3/uL (4.0-10.0)
[2018-04-17 08:03] LABS: INR 1.21; PROTHROMBIN TIME 15.5 SECONDS (12.1-14.4)
[2018-04-17 08:04] LABS: PARTIAL THROMBOPLASTIN TIME 34.6 SECONDS (25.4-37.6)
[2018-04-17 08:24] LABS: ALBUMIN 2.6 GM/DL (3.2-5.2); ALBUMIN/GLOBULIN RATIO 0.57 (1.00-1.93); ALKALINE PHOSPHATASE 186 U/L (45-117); ALT/SGPT 42 U/L (12-78); ANION GAP 7 MEQ/L (8-16); AST/SGOT 47 U/L (7-37); BILIRUBIN,DIRECT 0.3 MG/DL (0.0-0.2); BILIRUBIN,TOTAL 0.5 MG/DL (0.2-1.0); BLOOD UREA NITROGEN 47 MG/DL (7-18); CALCIUM LEVEL 9.2 MG/DL (8.8-10.2); CARBON DIOXIDE LEVEL 29 MEQ/L (21-32); CHLORIDE LEVEL 104 MEQ/L (98-107); CPK CREATINE PHOSPHOKINASE 101 U/L (39-308); CREATININE FOR GFR 2.26 MG/DL (0.70-1.30); FREE T4 0.83 NG/DL (0.76-1.46); GLOMERULAR FILTRATION RATE 29.7 (>35); GLUCOSE, FASTING 110 MG/DL (70-100); MAGNESIUM LEVEL 2.3 MG/DL (1.8-2.4); MB/CK RELATIVE INDEX 1.39 (< OR =4); SODIUM LEVEL 140 MEQ/L (136-145); TOTAL PROTEIN 7.2 GM/DL (6.4-8.2); TROPONIN I 0.03 NG/ML (< 0.10)
[2018-04-17] MEDS ORDERED: ONDANSETRON 4MG/2ML VIAL (J2405) IV (12:30)
[2018-04-17] MEDS ORDERED: GLUCOSE 4 GM CHEW TABLET PO (12:30)
[2018-04-17] MEDS ORDERED: IPRATROPIUM 0.5MG/ALBUTEROL 2.5MG INH SOL UD 3ML (DUONEB)(J7620) NEB (12:30)
[2018-04-17] MEDS ORDERED: CALCIUM CARBONATE 500 MG CHEW U/D PO (12:30)
[2018-04-17] MEDS ORDERED: GLUCAGON FOR INJ 1 MG VIAL (J1610) SC (12:30)
[2018-04-17] MEDS ORDERED: BISACODYL 10 MG SUPP PR (12:30)
[2018-04-17] MEDS: IPRATROPIUM 0.5MG/ALBUTEROL 2.5MG INH SOL UD 3ML (DUONEB)(J7620) NEB ×2 (14:00→20:35)
[2018-04-17] MEDS: SENOKOT S TAB PO ×2 (14:22→21:13)
[2018-04-17] MEDS: FERROUS SULFATE 325MG TAB PO (14:22)
[2018-04-17] MEDS: ASPIRIN 325 MG TAB PO (14:22)
[2018-04-17] MEDS: amLODIPine 10 MG TAB PO (14:23)
[2018-04-17] MEDS: CLOPIDOGREL 75 MG TAB PO (14:23)
[2018-04-17] MEDS: CARVedilol 12.5 MG TAB PO ×3 (14:24→21:13)
[2018-04-17 18:21] LABS: BEDSIDE GLUCOSE 66 MG/DL (83-110)
[2018-04-17] MEDS: HumaLOG INSULIN (NovoLOG) PER UNIT SC ×2 (18:25→21:00)
[2018-04-17] MEDS ORDERED: SLF 3 ML SYR IV (18:45)
[2018-04-17 20:43] LABS: BEDSIDE GLUCOSE 95 MG/DL (83-110)
[2018-04-17] MEDS: ATORVASTATIN 20 MG TAB PO (21:13)
[2018-04-17] MEDS: SLF 3 ML SYR IV (21:14)
[2018-04-18] MEDS: IPRATROPIUM 0.5MG/ALBUTEROL 2.5MG INH SOL UD 3ML (DUONEB)(J7620) NEB ×4 (02:00→20:00)
[2018-04-18] MEDS: SLF 3 ML SYR IV ×3 (05:03→20:44)
[2018-04-18 06:03] LABS: HEMATOCRIT 34.7 % (42.0-52.0); HEMOGLOBIN 10.9 g/dl (13.5-17.5); MEAN CORPUSCULAR HEMOGLOBIN 29.3 pg (27.0-33.0); MEAN CORPUSCULAR HGB CONC 31.4 g/dl (32.0-36.5); MEAN CORPUSCULAR VOLUME 93.3 fl (80.0-96.0); PLATELET COUNT, AUTOMATED 246 10^3/uL (150-450); RED BLOOD COUNT 3.72 10^6/uL (4.30-6.10); RED CELL DISTRIBUTION WIDTH 13.2 % (11.5-14.5); WHITE BLOOD COUNT 11.4 10^3/uL (4.0-10.0)
[2018-04-18 06:17] LABS: MAGNESIUM LEVEL 2.5 MG/DL (1.8-2.4)
[2018-04-18 06:28] LABS: ANION GAP 7 MEQ/L (8-16); BLOOD UREA NITROGEN 45 MG/DL (7-18); CARBON DIOXIDE LEVEL 29 MEQ/L (21-32); CHLORIDE LEVEL 108 MEQ/L (98-107); CREATININE FOR GFR 1.83 MG/DL (0.70-1.30); GLOMERULAR FILTRATION RATE 37.9 (>35); GLUCOSE, FASTING 39 MG/DL (70-100); POTASSIUM SERUM 3.9 MEQ/L (3.5-5.1); SODIUM LEVEL 144 MEQ/L (136-145)
[2018-04-18] MEDS: DEXTROSE 50% 50 ML SYRINGE IV (06:33)
[2018-04-18 06:58] LABS: BEDSIDE GLUCOSE 112 MG/DL (83-110)
[2018-04-18] MEDS: HumaLOG INSULIN (NovoLOG) PER UNIT SC ×5 (07:30→20:12)
[2018-04-18 07:57] LABS: BEDSIDE GLUCOSE 68 MG/DL (83-110)
[2018-04-18] MEDS ORDERED: ALBUTEROL 90 MCG/ACT 8GM HFA INHALER INH (08:30)
[2018-04-18] MEDS: CARVedilol 12.5 MG TAB PO ×2 (09:00→20:44)
[2018-04-18] MEDS: SENOKOT S TAB PO ×2 (09:00→20:44)
[2018-04-18] MEDS: amLODIPine 10 MG TAB PO (09:00)
[2018-04-18 09:22] LABS: BEDSIDE GLUCOSE 130 MG/DL (83-110)
[2018-04-18 09:57] LABS: ESTIMATED AVERAGE GLUCOSE 157 MG/DL (60-110); HEMOGLOBIN A1c 7.1 %
[2018-04-18 10:04] LABS: ABG BASE EXCESS -0.5 (-2.0-2.0); ABG HCO3 23.7 MEQ/L (22.0-26.0); ABG O2 SATURATION 90.3 % (95.0-99.0); ABG PARTIAL PRESSURE CO2 37.8 mmHg (35.0-45.0); ABG PARTIAL PRESSURE O2 59.7 mmHg (75.0-100.0); ABG STANDARD HCO3 23.9 MEQ/L (22.0-26.0); ABG TOTAL CO2 24.9 MEQ/L (23.0-31.0); ABG pH (ARTERIAL) 7.416 UNITS (7.350-7.450)
[2018-04-18] MEDS: CLOPIDOGREL 75 MG TAB PO (10:41)
[2018-04-18] MEDS: ASPIRIN 325 MG TAB PO (10:41)
[2018-04-18] MEDS: FERROUS SULFATE 325MG TAB PO (10:42)
[2018-04-18 11:58] LABS: BEDSIDE GLUCOSE 225 MG/DL (83-110)
[2018-04-18] MEDS: TIOTROPIUM INHALER/CAPSULE (SPIRIVA) INH (14:53)
[2018-04-18] MEDS: FUROSEMIDE 20 MG TAB PO (17:18)
[2018-04-18 17:22] LABS: BEDSIDE GLUCOSE 181 MG/DL (83-110)
[2018-04-18 19:35] LABS: BEDSIDE GLUCOSE 152 MG/DL (83-110)
[2018-04-18] MEDS: HEPARIN SOD (PORCINE) 5000 UNITS/ML VIAL SQ (20:44)
[2018-04-18] MEDS: ATORVASTATIN 20 MG TAB PO (20:44)
[2018-04-19] MEDS: IPRATROPIUM 0.5MG/ALBUTEROL 2.5MG INH SOL UD 3ML (DUONEB)(J7620) NEB ×4 (02:00→20:29)
[2018-04-19] MEDS: SLF 3 ML SYR IV ×3 (05:30→22:00)
[2018-04-19 05:45] LABS: HEMATOCRIT 35.3 % (42.0-52.0); MEAN CORPUSCULAR HEMOGLOBIN 29.3 pg (27.0-33.0); MEAN CORPUSCULAR HGB CONC 31.2 g/dl (32.0-36.5); MEAN CORPUSCULAR VOLUME 94.1 fl (80.0-96.0); PLATELET COUNT, AUTOMATED 243 10^3/uL (150-450); RED BLOOD COUNT 3.75 10^6/uL (4.30-6.10); RED CELL DISTRIBUTION WIDTH 13.1 % (11.5-14.5); WHITE BLOOD COUNT 7.8 10^3/uL (4.0-10.0)
[2018-04-19 06:02] LABS: ANION GAP 4 MEQ/L (8-16); BLOOD UREA NITROGEN 41 MG/DL (7-18); CALCIUM LEVEL 8.9 MG/DL (8.8-10.2); CARBON DIOXIDE LEVEL 29 MEQ/L (21-32); CHLORIDE LEVEL 106 MEQ/L (98-107); CREATININE FOR GFR 1.61 MG/DL (0.70-1.30); GLUCOSE, FASTING 174 MG/DL (70-100); MAGNESIUM LEVEL 2.4 MG/DL (1.8-2.4); POTASSIUM SERUM 4.1 MEQ/L (3.5-5.1); SODIUM LEVEL 139 MEQ/L (136-145)
[2018-04-19] MEDS: TIOTROPIUM INHALER/CAPSULE (SPIRIVA) INH (07:39)
[2018-04-19] MEDS: HEPARIN SOD (PORCINE) 5000 UNITS/ML VIAL SQ ×2 (08:35→20:10)
[2018-04-19] MEDS: ASPIRIN 325 MG TAB PO (08:36)
[2018-04-19] MEDS: HumaLOG INSULIN (NovoLOG) PER UNIT SC ×4 (08:36→20:10)
[2018-04-19] MEDS: SENOKOT S TAB PO ×2 (08:37→20:09)
[2018-04-19] MEDS: FERROUS SULFATE 325MG TAB PO (08:37)
[2018-04-19] MEDS: amLODIPine 10 MG TAB PO (08:37)
[2018-04-19] MEDS: FUROSEMIDE 20 MG TAB PO ×2 (08:37→17:26)
[2018-04-19] MEDS: CARVedilol 12.5 MG TAB PO ×2 (08:37→20:09)
[2018-04-19] MEDS: CLOPIDOGREL 75 MG TAB PO (08:38)
[2018-04-19 11:42] LABS: BEDSIDE GLUCOSE 175 MG/DL (83-110)
[2018-04-19 17:01] LABS: BEDSIDE GLUCOSE 144 MG/DL (83-110)
[2018-04-19 19:55] LABS: BEDSIDE GLUCOSE 152 MG/DL (83-110)
[2018-04-19] MEDS: ATORVASTATIN 20 MG TAB PO (20:09)
[2018-04-20] MEDS: IPRATROPIUM 0.5MG/ALBUTEROL 2.5MG INH SOL UD 3ML (DUONEB)(J7620) NEB ×4 (01:50→20:14)
[2018-04-20] MEDS: SLF 3 ML SYR IV ×3 (05:35→20:34)
[2018-04-20 05:44] LABS: HEMATOCRIT 34.1 % (42.0-52.0); HEMOGLOBIN 10.9 g/dl (13.5-17.5); MEAN CORPUSCULAR HEMOGLOBIN 29.7 pg (27.0-33.0); MEAN CORPUSCULAR VOLUME 92.9 fl (80.0-96.0); PLATELET COUNT, AUTOMATED 248 10^3/uL (150-450); RED BLOOD COUNT 3.67 10^6/uL (4.30-6.10); RED CELL DISTRIBUTION WIDTH 13.1 % (11.5-14.5); WHITE BLOOD COUNT 8.3 10^3/uL (4.0-10.0)
[2018-04-20 06:08] LABS: ANION GAP 7 MEQ/L (8-16); BLOOD UREA NITROGEN 35 MG/DL (7-18); CARBON DIOXIDE LEVEL 28 MEQ/L (21-32); CHLORIDE LEVEL 108 MEQ/L (98-107); CREATININE FOR GFR 1.53 MG/DL (0.70-1.30); GLOMERULAR FILTRATION RATE 46.6 (>35); GLUCOSE, FASTING 58 MG/DL (70-100); MAGNESIUM LEVEL 2.3 MG/DL (1.8-2.4); POTASSIUM SERUM 4.5 MEQ/L (3.5-5.1); SODIUM LEVEL 143 MEQ/L (136-145)
[2018-04-20] MEDS: TIOTROPIUM INHALER/CAPSULE (SPIRIVA) INH (07:22)
[2018-04-20] MEDS: HumaLOG INSULIN (NovoLOG) PER UNIT SC ×4 (07:30→20:30)
[2018-04-20] MEDS: HEPARIN SOD (PORCINE) 5000 UNITS/ML VIAL SQ ×2 (09:18→20:34)
[2018-04-20] MEDS: SENOKOT S TAB PO ×2 (09:19→20:35)
[2018-04-20] MEDS: ASPIRIN 325 MG TAB PO (09:19)
[2018-04-20] MEDS: CARVedilol 12.5 MG TAB PO ×2 (09:19→20:35)
[2018-04-20] MEDS: CLOPIDOGREL 75 MG TAB PO (09:19)
[2018-04-20] MEDS: amLODIPine 10 MG TAB PO (09:19)
[2018-04-20] MEDS: FERROUS SULFATE 325MG TAB PO (09:20)
[2018-04-20] MEDS: FUROSEMIDE 20 MG TAB PO ×2 (09:20→17:00)
[2018-04-20 11:38] LABS: BEDSIDE GLUCOSE 235 MG/DL (83-110)
[2018-04-20 17:26] LABS: BEDSIDE GLUCOSE 91 MG/DL (83-110)
[2018-04-20 20:30] LABS: BEDSIDE GLUCOSE 181 MG/DL (83-110)
[2018-04-20] MEDS: ATORVASTATIN 20 MG TAB PO (20:35)
[2018-04-21] MEDS: IPRATROPIUM 0.5MG/ALBUTEROL 2.5MG INH SOL UD 3ML (DUONEB)(J7620) NEB ×4 (02:00→19:30)
[2018-04-21] MEDS: SLF 3 ML SYR IV ×3 (04:24→21:48)
[2018-04-21 07:04] LABS: HEMATOCRIT 34.6 % (42.0-52.0); MEAN CORPUSCULAR HEMOGLOBIN 29.7 pg (27.0-33.0); MEAN CORPUSCULAR HGB CONC 31.8 g/dl (32.0-36.5); MEAN CORPUSCULAR VOLUME 93.5 fl (80.0-96.0); PLATELET COUNT, AUTOMATED 244 10^3/uL (150-450); RED CELL DISTRIBUTION WIDTH 13.1 % (11.5-14.5)
[2018-04-21] MEDS: TIOTROPIUM INHALER/CAPSULE (SPIRIVA) INH (07:12)
[2018-04-21 07:24] LABS: ANION GAP 7 MEQ/L (8-16); BLOOD UREA NITROGEN 35 MG/DL (7-18); CALCIUM LEVEL 8.8 MG/DL (8.8-10.2); CARBON DIOXIDE LEVEL 28 MEQ/L (21-32); CHLORIDE LEVEL 106 MEQ/L (98-107); GLOMERULAR FILTRATION RATE 44.3 (>35); GLUCOSE, FASTING 94 MG/DL (70-100); MAGNESIUM LEVEL 2.3 MG/DL (1.8-2.4); POTASSIUM SERUM 4.3 MEQ/L (3.5-5.1); SODIUM LEVEL 141 MEQ/L (136-145)
[2018-04-21] MEDS: HumaLOG INSULIN (NovoLOG) PER UNIT SC ×4 (07:30→20:26)
[2018-04-21] MEDS: SENOKOT S TAB PO ×2 (08:56→20:26)
[2018-04-21] MEDS: ASPIRIN 325 MG TAB PO (08:56)
[2018-04-21] MEDS: CARVedilol 12.5 MG TAB PO ×2 (08:56→21:00)
[2018-04-21] MEDS: FERROUS SULFATE 325MG TAB PO (08:57)
[2018-04-21] MEDS: CLOPIDOGREL 75 MG TAB PO (08:57)
[2018-04-21] MEDS: amLODIPine 10 MG TAB PO (08:57)
[2018-04-21] MEDS: FUROSEMIDE 20 MG TAB PO ×2 (08:57→16:51)
[2018-04-21] MEDS: HEPARIN SOD (PORCINE) 5000 UNITS/ML VIAL SQ ×2 (08:58→21:48)
[2018-04-21 11:10] LABS: BEDSIDE GLUCOSE 267 MG/DL (83-110)
[2018-04-21 16:34] LABS: BEDSIDE GLUCOSE 113 MG/DL (83-110)
[2018-04-21 19:54] LABS: BEDSIDE GLUCOSE 154 MG/DL (83-110)
[2018-04-21] MEDS: ATORVASTATIN 20 MG TAB PO (21:48)
[2018-04-22] MEDS: IPRATROPIUM 0.5MG/ALBUTEROL 2.5MG INH SOL UD 3ML (DUONEB)(J7620) NEB ×4 (02:00→20:00)
[2018-04-22 05:56] LABS: HEMATOCRIT 33.7 % (42.0-52.0); HEMOGLOBIN 10.8 g/dl (13.5-17.5); MEAN CORPUSCULAR VOLUME 93.6 fl (80.0-96.0); PLATELET COUNT, AUTOMATED 239 10^3/uL (150-450); RED CELL DISTRIBUTION WIDTH 12.9 % (11.5-14.5); WHITE BLOOD COUNT 6.7 10^3/uL (4.0-10.0)
[2018-04-22] MEDS: SLF 3 ML SYR IV ×3 (06:00→20:55)
[2018-04-22 06:24] LABS: ANION GAP 8 MEQ/L (8-16); BLOOD UREA NITROGEN 38 MG/DL (7-18); CALCIUM LEVEL 8.6 MG/DL (8.8-10.2); CARBON DIOXIDE LEVEL 26 MEQ/L (21-32); CHLORIDE LEVEL 107 MEQ/L (98-107); CREATININE FOR GFR 1.66 MG/DL (0.70-1.30); GLOMERULAR FILTRATION RATE 42.4 (>35); GLUCOSE, FASTING 86 MG/DL (70-100); MAGNESIUM LEVEL 2.4 MG/DL (1.8-2.4); POTASSIUM SERUM 4.4 MEQ/L (3.5-5.1); SODIUM LEVEL 141 MEQ/L (136-145)
[2018-04-22] MEDS: HumaLOG INSULIN (NovoLOG) PER UNIT SC ×4 (07:54→20:53)
[2018-04-22] MEDS: TIOTROPIUM INHALER/CAPSULE (SPIRIVA) INH (08:47)
[2018-04-22] MEDS: ASPIRIN 325 MG TAB PO (09:32)
[2018-04-22] MEDS: SENOKOT S TAB PO ×2 (09:32→20:54)
[2018-04-22] MEDS: CLOPIDOGREL 75 MG TAB PO (09:33)
[2018-04-22] MEDS: FERROUS SULFATE 325MG TAB PO (09:33)
[2018-04-22] MEDS: CARVedilol 12.5 MG TAB PO ×2 (09:33→20:54)
[2018-04-22] MEDS: HEPARIN SOD (PORCINE) 5000 UNITS/ML VIAL SQ ×2 (09:34→20:53)
[2018-04-22] MEDS: amLODIPine 10 MG TAB PO (09:34)
[2018-04-22 11:21] LABS: BEDSIDE GLUCOSE 250 MG/DL (83-110)
[2018-04-22] MEDS: ATORVASTATIN 20 MG TAB PO (20:55)
[2018-04-23 00:16] LABS: BEDSIDE GLUCOSE 98 MG/DL (83-110)
[2018-04-23 00:16] LABS: BEDSIDE GLUCOSE 140 MG/DL (83-110)
[2018-04-23] MEDS: IPRATROPIUM 0.5MG/ALBUTEROL 2.5MG INH SOL UD 3ML (DUONEB)(J7620) NEB ×4 (02:00→20:00)
[2018-04-23] MEDS: SLF 3 ML SYR IV ×3 (05:28→22:00)
[2018-04-23] MEDS: ACETAMINOPHEN TAB 650MG DOSE (2X325MG) PO (06:15)
[2018-04-23 06:50] LABS: HEMATOCRIT 34.2 % (42.0-52.0); MEAN CORPUSCULAR HGB CONC 32.2 g/dl (32.0-36.5); MEAN CORPUSCULAR VOLUME 93.2 fl (80.0-96.0); PLATELET COUNT, AUTOMATED 242 10^3/uL (150-450); RED BLOOD COUNT 3.67 10^6/uL (4.30-6.10); RED CELL DISTRIBUTION WIDTH 12.9 % (11.5-14.5); WHITE BLOOD COUNT 6.5 10^3/uL (4.0-10.0)
[2018-04-23 07:12] LABS: ANION GAP 9 MEQ/L (8-16); BLOOD UREA NITROGEN 37 MG/DL (7-18); CALCIUM LEVEL 8.7 MG/DL (8.8-10.2); CARBON DIOXIDE LEVEL 25 MEQ/L (21-32); CHLORIDE LEVEL 107 MEQ/L (98-107); GLOMERULAR FILTRATION RATE 41.3 (>35); GLUCOSE, FASTING 95 MG/DL (70-100); MAGNESIUM LEVEL 2.4 MG/DL (1.8-2.4); POTASSIUM SERUM 4.5 MEQ/L (3.5-5.1); SODIUM LEVEL 141 MEQ/L (136-145)
[2018-04-23] MEDS: HumaLOG INSULIN (NovoLOG) PER UNIT SC ×4 (07:14→21:00)
[2018-04-23] MEDS: SENOKOT S TAB PO ×2 (08:08→20:36)
[2018-04-23] MEDS: ASPIRIN 325 MG TAB PO (08:08)
[2018-04-23] MEDS: CARVedilol 12.5 MG TAB PO ×2 (08:08→20:36)
[2018-04-23] MEDS: FERROUS SULFATE 325MG TAB PO (08:08)
[2018-04-23] MEDS: CLOPIDOGREL 75 MG TAB PO (08:08)
[2018-04-23] MEDS: HEPARIN SOD (PORCINE) 5000 UNITS/ML VIAL SQ ×2 (08:08→20:36)
[2018-04-23] MEDS: amLODIPine 10 MG TAB PO (08:08)
[2018-04-23 13:03] LABS: BEDSIDE GLUCOSE 206 MG/DL (83-110)
[2018-04-23] MEDS: TIOTROPIUM INHALER/CAPSULE (SPIRIVA) INH (14:02)
[2018-04-23] MEDS ORDERED: FUROSEMIDE 20 MG TAB PO (17:00)
[2018-04-23 17:10] LABS: BEDSIDE GLUCOSE 117 MG/DL (83-110)
[2018-04-23] MEDS: ATORVASTATIN 20 MG TAB PO (20:35)
[2018-04-23 21:24] LABS: BEDSIDE GLUCOSE 173 MG/DL (83-110)
[2018-04-24] MEDS: IPRATROPIUM 0.5MG/ALBUTEROL 2.5MG INH SOL UD 3ML (DUONEB)(J7620) NEB ×4 (02:00→20:23)
[2018-04-24] MEDS: SLF 3 ML SYR IV ×3 (05:03→21:07)
[2018-04-24 05:07] LABS: HEMATOCRIT 33.1 % (42.0-52.0); HEMOGLOBIN 10.6 g/dl (13.5-17.5); MEAN CORPUSCULAR HEMOGLOBIN 29.4 pg (27.0-33.0); MEAN CORPUSCULAR VOLUME 91.9 fl (80.0-96.0); PLATELET COUNT, AUTOMATED 235 10^3/uL (150-450); WHITE BLOOD COUNT 6.2 10^3/uL (4.0-10.0)
[2018-04-24 05:32] LABS: ANION GAP 6 MEQ/L (8-16); BLOOD UREA NITROGEN 33 MG/DL (7-18); CALCIUM LEVEL 8.8 MG/DL (8.8-10.2); CARBON DIOXIDE LEVEL 27 MEQ/L (21-32); CHLORIDE LEVEL 109 MEQ/L (98-107); GLOMERULAR FILTRATION RATE 41.3 (>35); GLUCOSE, FASTING 118 MG/DL (70-100); MAGNESIUM LEVEL 2.7 MG/DL (1.8-2.4); POTASSIUM SERUM 4.5 MEQ/L (3.5-5.1); SODIUM LEVEL 142 MEQ/L (136-145)
[2018-04-24] MEDS: TIOTROPIUM INHALER/CAPSULE (SPIRIVA) INH (07:21)
[2018-04-24] MEDS: HumaLOG INSULIN (NovoLOG) PER UNIT SC ×4 (07:30→20:41)
[2018-04-24] MEDS: HEPARIN SOD (PORCINE) 5000 UNITS/ML VIAL SQ ×2 (08:32→20:46)
[2018-04-24] MEDS: ASPIRIN 325 MG TAB PO (08:33)
[2018-04-24] MEDS: CARVedilol 12.5 MG TAB PO ×2 (08:33→20:45)
[2018-04-24] MEDS: amLODIPine 10 MG TAB PO (08:33)
[2018-04-24] MEDS: FERROUS SULFATE 325MG TAB PO (08:33)
[2018-04-24] MEDS: CLOPIDOGREL 75 MG TAB PO (08:33)
[2018-04-24] MEDS: FUROSEMIDE 20 MG TAB PO ×2 (08:34→17:18)
[2018-04-24] MEDS: SENOKOT S TAB PO ×2 (08:34→20:42)
[2018-04-24 11:44] LABS: BEDSIDE GLUCOSE 213 MG/DL (83-110)
[2018-04-24 16:49] LABS: BEDSIDE GLUCOSE 134 MG/DL (83-110)
[2018-04-24] MEDS: DEXTRAN/HYPROMELLOSE OPHTH SOLN 15 ML(GENTEAL TEARS) OU ×2 (17:18→20:46)
[2018-04-24] MEDS: CIPROFLOXACIN 0.3% OPHTH SOLN 2.5ML OS ×2 (17:18→20:46)
[2018-04-24 20:43] LABS: BEDSIDE GLUCOSE 159 MG/DL (83-110)
[2018-04-24] MEDS: ATORVASTATIN 20 MG TAB PO (20:46)
[2018-04-25] MEDS: IPRATROPIUM 0.5MG/ALBUTEROL 2.5MG INH SOL UD 3ML (DUONEB)(J7620) NEB ×4 (01:34→20:34)
[2018-04-25] MEDS: SLF 3 ML SYR IV ×3 (05:58→22:00)
[2018-04-25 06:01] LABS: HEMATOCRIT 35.1 % (42.0-52.0); HEMOGLOBIN 11.1 g/dl (13.5-17.5); MEAN CORPUSCULAR HEMOGLOBIN 29.4 pg (27.0-33.0); MEAN CORPUSCULAR HGB CONC 31.6 g/dl (32.0-36.5); MEAN CORPUSCULAR VOLUME 93.1 fl (80.0-96.0); PLATELET COUNT, AUTOMATED 249 10^3/uL (150-450); RED BLOOD COUNT 3.77 10^6/uL (4.30-6.10); WHITE BLOOD COUNT 6.5 10^3/uL (4.0-10.0)
[2018-04-25 06:31] LABS: ANION GAP 8 MEQ/L (8-16); BLOOD UREA NITROGEN 34 MG/DL (7-18); CALCIUM LEVEL 8.6 MG/DL (8.8-10.2); CARBON DIOXIDE LEVEL 25 MEQ/L (21-32); CHLORIDE LEVEL 107 MEQ/L (98-107); CREATININE FOR GFR 1.64 MG/DL (0.70-1.30); GLUCOSE, FASTING 108 MG/DL (70-100); MAGNESIUM LEVEL 2.4 MG/DL (1.8-2.4); POTASSIUM SERUM 4.9 MEQ/L (3.5-5.1); SODIUM LEVEL 140 MEQ/L (136-145)
[2018-04-25] MEDS: TIOTROPIUM INHALER/CAPSULE (SPIRIVA) INH (07:26)
[2018-04-25] MEDS: HumaLOG INSULIN (NovoLOG) PER UNIT SC ×4 (07:30→21:00)
[2018-04-25] MEDS: ASPIRIN 325 MG TAB PO (08:42)
[2018-04-25] MEDS: CLOPIDOGREL 75 MG TAB PO (08:42)
[2018-04-25] MEDS: HEPARIN SOD (PORCINE) 5000 UNITS/ML VIAL SQ ×2 (08:42→21:20)
[2018-04-25] MEDS: SENOKOT S TAB PO ×2 (08:42→21:00)
[2018-04-25] MEDS: amLODIPine 10 MG TAB PO (08:42)
[2018-04-25] MEDS: FERROUS SULFATE 325MG TAB PO (08:43)
[2018-04-25] MEDS: CARVedilol 12.5 MG TAB PO ×2 (08:43→21:19)
[2018-04-25] MEDS: FUROSEMIDE 20 MG TAB PO ×2 (08:43→16:42)
[2018-04-25] MEDS: CIPROFLOXACIN 0.3% OPHTH SOLN 2.5ML OS ×3 (08:43→21:20)
[2018-04-25] MEDS: DEXTRAN/HYPROMELLOSE OPHTH SOLN 15 ML(GENTEAL TEARS) OU ×3 (08:43→21:20)
[2018-04-25 11:40] LABS: BEDSIDE GLUCOSE 232 MG/DL (83-110)
[2018-04-25 16:26] LABS: BEDSIDE GLUCOSE 154 MG/DL (83-110)
[2018-04-25 21:19] LABS: BEDSIDE GLUCOSE 118 MG/DL (83-110)
[2018-04-25] MEDS: ATORVASTATIN 20 MG TAB PO (21:19)
[2018-04-26] MEDS: IPRATROPIUM 0.5MG/ALBUTEROL 2.5MG INH SOL UD 3ML (DUONEB)(J7620) NEB ×2 (01:53→07:27)
[2018-04-26] MEDS: SLF 3 ML SYR IV (05:39)
[2018-04-26 06:07] LABS: HEMOGLOBIN 10.9 g/dl (13.5-17.5); MEAN CORPUSCULAR HEMOGLOBIN 29.8 pg (27.0-33.0); MEAN CORPUSCULAR HGB CONC 32.1 g/dl (32.0-36.5); MEAN CORPUSCULAR VOLUME 92.9 fl (80.0-96.0); PLATELET COUNT, AUTOMATED 233 10^3/uL (150-450); RED BLOOD COUNT 3.66 10^6/uL (4.30-6.10); WHITE BLOOD COUNT 6.4 10^3/uL (4.0-10.0)
[2018-04-26 06:43] LABS: ANION GAP 9 MEQ/L (8-16); BLOOD UREA NITROGEN 33 MG/DL (7-18); CALCIUM LEVEL 8.6 MG/DL (8.8-10.2); CARBON DIOXIDE LEVEL 25 MEQ/L (21-32); CHLORIDE LEVEL 107 MEQ/L (98-107); CREATININE FOR GFR 1.79 MG/DL (0.70-1.30); GLOMERULAR FILTRATION RATE 38.9 (>35); GLUCOSE, FASTING 100 MG/DL (70-100); MAGNESIUM LEVEL 2.3 MG/DL (1.8-2.4); SODIUM LEVEL 141 MEQ/L (136-145)
[2018-04-26] MEDS: TIOTROPIUM INHALER/CAPSULE (SPIRIVA) INH (07:27)
[2018-04-26] MEDS: HumaLOG INSULIN (NovoLOG) PER UNIT SC ×2 (07:30→12:00)
[2018-04-26] MEDS: SENOKOT S TAB PO (09:00)
[2018-04-26] MEDS: HEPARIN SOD (PORCINE) 5000 UNITS/ML VIAL SQ (09:14)
[2018-04-26] MEDS: CARVedilol 12.5 MG TAB PO (09:15)
[2018-04-26] MEDS: FERROUS SULFATE 325MG TAB PO (09:15)
[2018-04-26] MEDS: CLOPIDOGREL 75 MG TAB PO (09:15)
[2018-04-26] MEDS: amLODIPine 10 MG TAB PO (09:15)
[2018-04-26] MEDS: FUROSEMIDE 20 MG TAB PO (09:15)
[2018-04-26] MEDS: ASPIRIN 325 MG TAB PO (09:15)
[2018-04-26] MEDS: CIPROFLOXACIN 0.3% OPHTH SOLN 2.5ML OS (09:16)
[2018-04-26] MEDS: DEXTRAN/HYPROMELLOSE OPHTH SOLN 15 ML(GENTEAL TEARS) OU (09:16)
== END 2018-04-26 13:05 | disposition home health service (06) | DRG 552 ==
LOC: M MSPAV 04-22 14:47 → M PCU 04-23 12:53 → M ED 07:10 → M ED INP 12:27 → M PCU 18:11
PROVIDERS: Internal Medicine
DX: M54.41 Lumbago with sciatica, right side (principal); I50.32 Chronic diastolic (congestive) heart failure; J96.11 Chronic respiratory failure with hypoxia; G45.9 Transient cerebral ischemic attack, unspecified; N18.3 Chronic kidney disease, stage 3 (moderate); M54.42 Lumbago with sciatica, left side; I25.10 Atherosclerotic heart disease of native coronary artery without angina pectoris; E11.22 Type 2 diabetes mellitus with diabetic chronic kidney disease; E11.649 Type 2 diabetes mellitus with hypoglycemia without coma; E11.42 Type 2 diabetes mellitus with diabetic polyneuropathy; L89.899 Pressure ulcer of other site, unspecified stage; J44.9 Chronic obstructive pulmonary disease, unspecified; Z99.81 Dependence on supplemental oxygen; Z79.82 Long term (current) use of aspirin; Z79.899 Other long term (current) drug therapy; Z88.0 Allergy status to penicillin; Z88.1 Allergy status to other antibiotic agents; Z87.891 Personal history of nicotine dependence; Z95.5 Presence of coronary angioplasty implant and graft; Z79.02 Long term (current) use of antithrombotics/antiplatelets

== ENCOUNTER → 2018-05-30 | Outpatient (REF) | payer MEDICARE, OTHER ==
[2018-05-30 12:08] LABS: ANION GAP 10 MEQ/L (8-16); BLOOD UREA NITROGEN 39 MG/DL (7-18); CALCIUM LEVEL 8.9 MG/DL (8.8-10.2); CARBON DIOXIDE LEVEL 27 MEQ/L (21-32); CHLORIDE LEVEL 105 MEQ/L (98-107); CREATININE FOR GFR 2.02 MG/DL (0.70-1.30); GLOMERULAR FILTRATION RATE 33.8 (>35); GLUCOSE, FASTING 108 MG/DL (70-100); POTASSIUM SERUM 4.3 MEQ/L (3.5-5.1); SODIUM LEVEL 142 MEQ/L (136-145)
[2018-05-30 13:22] LABS: ESTIMATED AVERAGE GLUCOSE 151 MG/DL (60-110); HEMOGLOBIN A1c 6.9 %
== END ==
LOC: M SFHCCLAY 06:54
DX: E11.29 Type 2 diabetes mellitus with other diabetic kidney complication (principal)
CPT/HCPCS: 83036

== ENCOUNTER → 2018-09-06 | Outpatient (REF) | payer MEDICARE, OTHER ==
[~2018-09-06] MED LIST changes: +AMLO10TA PO; +AMLO10TA5 PO; +AMLO5TAB6 PO; +ASPI325T PO; -ASPI325T24 PO; +ASPI325T25 PO; +ATOR40TA75 PO; +CALC1CAP31 PO; +CALC500C16 PO; +CAPT1TAB17 PO; +COLA100C5 PO; +ESOM1CAP5; +FERR1TAB8 PO; +FURO20TA2 PO; +FURO40TA2 PO; +GEMF600T5 PO; +JANU25TA PO; +LASI20TA3 PO; +NITR4TASL SL; +PLAV1TAB2 PO; +POTA10TA67 PO; +PROAAER10 INH; +SPIR1CAP INH; +TYLE650T35 PO
[2018-09-06 11:35] LABS: CALCIUM LEVEL 8.8 MG/DL (8.8-10.2); CREATININE FOR GFR 2.03 MG/DL (0.70-1.30); GLOMERULAR FILTRATION RATE 33.6 (>35); POTASSIUM SERUM 4.7 MEQ/L (3.5-5.1)
[2018-09-06 14:46] LABS: HEMOGLOBIN A1c 6.5 %
== END ==
LOC: M SFHCCLAY 06:53
PROVIDERS: ATTEND Family Medicine
DX: E11.29 Type 2 diabetes mellitus with other diabetic kidney complication (principal)

== ENCOUNTER 2018-12-02 06:30 | Emergency (ER) | payer MEDICARE, OTHER ==
[~2018-12-02] VITALS: Ht 172.7 cm; Wt 96.0 kg
[~2018-12-02 06:30] MED LIST changes: -/AMLO25TA PO; -/GLIM4TA PO; -/MOM400 PO; -/NITR4TASL SL; +AMAR1TAB6 PO; +ASPI-1 PO; +ASPI-255 PO; -ASPI325T PO; -ASPI325T25 PO; +CAPT1TAB PO; -CAPTO25TA PO; +MILK10SU PO; +NITR0.4S SL; +NORV2TAB PO
[2018-12-02 06:55] LABS: BASO # 0.1 10^3/uL (0.0-0.2); BASO % 0.5 % (0.0-1.0); EOS # 0.4 10^3/uL (0.0-0.50); EOS % 3.6 % (0.0-3.0); HEMOGLOBIN 10.2 g/dl (13.5-17.5); LYMPH # 1.2 10^3/uL (1.5-4.5); LYMPH % 11.8 % (24.0-44.0); MEAN CORPUSCULAR HEMOGLOBIN 29.7 pg (27.0-33.0); MEAN CORPUSCULAR HGB CONC 30.9 g/dl (32.0-36.5); MEAN CORPUSCULAR VOLUME 95.9 fl (80.0-96.0); MONO # 1.1 10^3/uL (0.0-0.8); MONO % 10.7 % (0.0-5.0); NEUTROPHILS # 7.6 10^3/uL (1.8-7.7); NEUTROPHILS % 72.6 % (36.0-66.0); PLATELET COUNT, AUTOMATED 227 10^3/uL (150-450); RED BLOOD COUNT 3.44 10^6/uL (4.30-6.10); WHITE BLOOD COUNT 10.5 10^3/uL (4.0-10.0)
[2018-12-02] MEDS ORDERED: ASPIRIN 325 MG TAB PO ONE (07:00)
[2018-12-02 07:05] LABS: INR 1.19; PROTHROMBIN TIME 15.3 SECONDS (12.1-14.4)
[2018-12-02] MEDS ORDERED: MAGN400C PO (07:09)
[2018-12-02] MEDS ORDERED: NEXI40CA PO (07:09)
[2018-12-02] MEDS ORDERED: SIME180C PO (07:09)
[2018-12-02 07:22] LABS: BLOOD UREA NITROGEN 45 MG/DL (7-18); CALCIUM LEVEL 8.4 MG/DL (8.8-10.2); CARBON DIOXIDE LEVEL 20 MEQ/L (21-32); CHLORIDE LEVEL 113 MEQ/L (98-107); CK-MB VALUE MASS 2.2 NG/ML (<3.6); CPK CREATINE PHOSPHOKINASE 55 U/L (39-308); CREATININE FOR GFR 1.87 MG/DL (0.70-1.30); GLOMERULAR FILTRATION RATE 36.9 (>35); GLUCOSE, FASTING 112 MG/DL (70-100); POTASSIUM SERUM 5.1 MEQ/L (3.5-5.1); SODIUM LEVEL 143 MEQ/L (136-145); TROPONIN I < 0.02 NG/ML (< 0.10)
[2018-12-02] MEDS ORDERED: CYCLOBENZAPRINE 5MG TABLET PO ONE (07:45)
[2018-12-02] MEDS ORDERED: NORCO, ANEXSIA 5/325MG TABLET (HYDROcodone/ACETAMINOPHEN) PO ONE (07:45)
[2018-12-02 07:50] LABS: NT-PRO BNP 1133 PG/ML (<450)
--- NOTE | 2018-12-02 08:10 | REP ---
Chest one-view HISTORY: Chest pain Comparison: 04/18/2018 An increase in interstitial markings is present in the lungs consistent with chronic interstitial change. Parenchymal density is present in the left lower lobe consistent with atelectasis or infiltrate. The cardiac silhouette is enlarged. The pulmonary vasculature is normal in appearance. Impression: 1. Chronic interstitial change. 2. Left lower lobe atelectasis or infiltrate. 3. Cardiomegaly. Electronically Signed by Tyrone Avila MD 12/02/2018 08:02 A
--- NOTE | 2018-12-02 09:27 | ECGEPIP ---
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
--- NOTE | 2018-12-02 09:32 | ECGEPIP ---
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
[2018-12-02 10:37] LABS: CK-MB VALUE MASS 2.7 NG/ML (<3.6); CPK CREATINE PHOSPHOKINASE 59 U/L (39-308); MB/CK RELATIVE INDEX 4.58 (< OR =4); TROPONIN I < 0.02 NG/ML (< 0.10)
[2018-12-02] MEDS ORDERED: CYCL5TAB PO (10:44)
[2018-12-02 10:46] VITALS: BP 140/85
--- NOTE | 2018-12-05 12:57 | ED PDOC ---
Post-Departure Follow-Up dr chen faxed formal report of cxr fo fu marting Shelia Rinaldi MD Dec 05, 2018 12:57
== END 2018-12-02 11:01 | disposition home or self-care (01) ==
LOC: M ED 06:30
DX: M62.838 Other muscle spasm (principal); R06.02 Shortness of breath; I11.0 Hypertensive heart disease with heart failure; I50.9 Heart failure, unspecified; I25.10 Atherosclerotic heart disease of native coronary artery without angina pectoris; J44.9 Chronic obstructive pulmonary disease, unspecified; E78.5 Hyperlipidemia, unspecified; E11.9 Type 2 diabetes mellitus without complications; Z87.891 Personal history of nicotine dependence; Z88.0 Allergy status to penicillin; Z88.1 Allergy status to other antibiotic agents; Z88.8 Allergy status to other drugs, medicaments and biological substances; Z79.899 Other long term (current) drug therapy; Z79.82 Long term (current) use of aspirin; Z79.02 Long term (current) use of antithrombotics/antiplatelets

== ENCOUNTER → 2018-12-06 | Outpatient (REF) | payer MEDICARE, OTHER ==
[~2018-12-06] MED LIST changes: +CYCL5TAB PO; +MAGN400C PO; +NEXI40CA PO; +SIME180C PO; +TIOT18INH INH
[2018-12-06 13:40] LABS: CALCIUM LEVEL 8.9 MG/DL (8.8-10.2); CHOLESTEROL RISK RATIO 3.515 (<5); GLOMERULAR FILTRATION RATE 34.1 (>35); POTASSIUM SERUM 4.6 MEQ/L (3.5-5.1)
[2018-12-06 14:06] LABS: HEMOGLOBIN A1c 6.5 %
[2018-12-06 14:13] LABS: CREATININE, URINE 78.5 MG/DL; MALB URINE SIEMENS 78.8 MG/L; MAU/CREAT RATIO 100.3 MCG/MG (0.0-30.0)
== END ==
LOC: M SFHCCLAY 06:52
PROVIDERS: ATTEND Family Medicine
DX: E11.29 Type 2 diabetes mellitus with other diabetic kidney complication (principal); E78.2 Mixed hyperlipidemia

== ENCOUNTER 2018-12-10 10:45 | Inpatient (IN) | payer MEDICARE, OTHER ==
[~2018-12-10] VITALS: Ht 172.7 cm; Wt 92.0 kg
[2018-12-10] MEDS: PANTOPRAZOLE 40MG TAB (PROTONIX) PO SCH (09:00)
[2018-12-10] MEDS: FERROUS SULFATE 325MG TAB PO SCH (09:00)
[2018-12-10] MEDS: CLOPIDOGREL 75 MG TAB PO SCH (09:00)
[~2018-12-10 10:45] MED LIST changes: -TIOT18INH INH
[2018-12-10] MEDS ORDERED: DEXTROSE 50% 50 ML SYRINGE IV STA ×3 (11:24→16:39)
[2018-12-10 12:05] LABS: BASO % 0.2 % (0.0-1.0); EOS # 0.2 10^3/uL (0.0-0.50); EOS % 1.8 % (0.0-3.0); HEMATOCRIT 29.5 % (42.0-52.0); LYMPH # 0.9 10^3/uL (1.5-4.5); LYMPH % 9.9 % (24.0-44.0); MEAN CORPUSCULAR HEMOGLOBIN 29.7 pg (27.0-33.0); MEAN CORPUSCULAR HGB CONC 30.5 g/dl (32.0-36.5); MEAN CORPUSCULAR VOLUME 97.4 fl (80.0-96.0); MONO # 0.9 10^3/uL (0.0-0.8); MONO % 10.1 % (0.0-5.0); NEUTROPHILS # 7.1 10^3/uL (1.8-7.7); NEUTROPHILS % 77.1 % (36.0-66.0); PLATELET COUNT, AUTOMATED 238 10^3/uL (150-450); RED BLOOD COUNT 3.03 10^6/uL (4.30-6.10); WHITE BLOOD COUNT 9.2 10^3/uL (4.0-10.0)
[2018-12-10 12:24] LABS: CALCIUM LEVEL 8.2 MG/DL (8.8-10.2); CREATININE FOR GFR 2.14 MG/DL (0.70-1.30); GLOMERULAR FILTRATION RATE 31.6 (>35); POTASSIUM SERUM 4.5 MEQ/L (3.5-5.1)
[2018-12-10 12:39] LABS: HEMOGLOBIN A1c 6.1 %
--- NOTE | 2018-12-10 14:11 | REP ---
CHEST, PORTABLE: AP portable view of the chest is performed and compared to multiple prior studies most recently 12/02/2018. There is fibroatelectatic change in each lung base which is stable. Heart appears enlarged. There is calcification and tortuosity of the thoracic aorta. The mediastinal silhouette is unchanged. Multiple sternal wires and mediastinal clips are present. There are degenerative changes of the spine. IMPRESSION: Stable chronic bibasilar fibroatelectatic change. No definite superimposed acute infiltrate. Electronically Signed by Kuldeep Pearson MD 12/10/2018 04:39 P
[2018-12-10] MEDS ORDERED: D5W/0.45% SODIUM CHLORIDE 1,000 ML IV SCH (14:30)
[2018-12-10] MEDS ORDERED: CYCL5TAB PO (15:02)
[2018-12-10] MEDS ORDERED: FURO40TA2 PO (15:04)
[2018-12-10] MEDS ORDERED: TIOT18INH INH (15:04)
[2018-12-10] MEDS ORDERED: DEXTROSE 50% 50 ML SYRINGE IV PRN (15:45)
[2018-12-10] MEDS ORDERED: NITROGLYCERIN 0.4 MG SUBL TABLET SL PRN (15:45)
[2018-12-10] MEDS ORDERED: GLUCAGON FOR INJ 1 MG VIAL (J1610) SC PRN (15:45)
[2018-12-10] MEDS ORDERED: GLUCOSE 4 GM CHEW TABLET PO PRN (15:45)
[2018-12-10] MEDS ORDERED: DOCUSATE SODIUM 100 MG CAP PO PRN (15:45)
[2018-12-10] MEDS ORDERED: CALCIUM CARBONATE 500 MG CHEW U/D PO PRN (15:45)
[2018-12-10] MEDS ORDERED: BACITRACIN OINT 30GM TOP PRN (16:00)
--- NOTE | 2018-12-10 16:01 | HPEPDOC ---
General Date of Admission Dec 10, 2018 at 15:33 Date of Service: Dec 10, 2018 Chief Complaint The patient is a 83-year-old male admitted with a reason for visit of Hypoglycemia. History of Present Illness 82-year-old male with past medical history of coronary artery disease status post CABG in 2005 PCI in 2011, Diabetes mellitus, Chronic kidney disease stage IV, CVA, COPD on 2 L home oxygen, and congestive heart failure who presented to the emergency room after he was found to be unresponsive by his daughter. The patient's blood sugar was checked and was noted to be 43 by EMS. The patient was brought to the hospital for further evaluation. The patient states that he took his medications as prescribed, and had breakfast this morning, and did not change his regimen. He denies any acute complaints of fevers, chills, chest pain, palpitations, shortness of breath, abdominal pain, or any nausea/v omiting/diarrhea. In the ER, the patient was given dextrose, and started on IV fluid hydration. However, the patient's blood sugar levels remained labile. He will be admitted to the hospitalist service under observation for further monitoring. Home Medications Scheduled Aspirin (Aspirin) 325 Mg Tab, 325 MG PO DAILY, (Reported) Atorvastatin Calcium (Atorvastatin Calcium) 40 Mg Tab, 40 MG PO QHS, (Reported) Calcitriol (Calcitriol) 0.25 Mcg Cap, 0.25 MCG PO DAILY, (Reported) Carvedilol (Carvedilol) 25 Mg Tab, 25 MG PO BID, (Reported) Clopidogrel Bisulfate (Plavix) 75 Mg Tab, 75 MG PO DAILY, (Reported) Cyclobenzaprine HCl (Cyclobenzaprine HCl) 5 Mg Tablet, 5 MG PO BID, (Reported) Esomeprazole Magnesium (Nexium) 40 Mg Capsule.dr, 40 MG PO DAILY, (Reported) Ferrous Sulfate (Ferrous Sulfate) 325 Mg Tab, 325 MG PO DAILY, (Reported) Furosemide (Furosemide) 40 Mg Tablet, 40 MG PO BID, (Reported) Gemfibrozil (Gemfibrozil) 600 Mg Tab, 600 MG PO BID, (Reported) Glimepiride (Glimepiride) 4 Mg Tab, 4 MG PO BID, (Reported) Magnesium Oxide (Magnesium) 400 Mg Capsule, 400 MG PO DAILY, (Reported) Sitagliptin Phosphate (Januvia) 25 Mg Tab, 25 MG PO QHS, (Reported) Tiotropium [place] Monohydrate (Spiriva) 18 Mcg Cap.w.dev, 1 CAP INH DAILY, (Reported) Scheduled PRN Albuterol Sulfate (Proair Hfa) 108 Mcg/Act Aer, 2 PUFF INH Q4H PRN for SHORTNESS OF BREATH, (Reported) Calcium Carbonate (Calcium) 500 Mg Chw, 500 MG PO Q4H PRN for HEARTBURN, (Reported) Docusate Sodium (Colace) 100 Mg Cap, 100 MG PO BID PRN for CONSTIPATION, (Reported) Nitroglycerin (Nitrostat) 0.4 Mg Subl, 0.4 MG SL NITRO PRN for CHEST PAIN, (Reported) Simethicone (Simethicone) 180 Mg Capsule, 180 MG PO TID PRN for GAS PAIN, (Reported) Allergies Coded Allergies: Penicillins (Verified Allergy, Unknown, 12/02/18) Quinolones (Verified Adverse Reaction, Mild, N/V, 12/10/18) tetracycline (Verified Adverse Reaction, Mild, N/V, 12/10/18) Past Medical History Medical History As noted in HPI. Social History * Smoker: former Smoker (smoked 1 pack per day of tobacco for 30 years, quit in 1983) Alcohol: Denies Drugs: denies Review of Systems Other systems 10 point review of systems negative unless otherwise specified in HPI. Physical Examination General Exam: Positive: Alert, Cooperative, No Acute Distress ENT Exam: Positive: Atraumatic, Mucous membr. moist/pink Neck Exam: Negative: JVD Chest Exam: Positive: Clear to auscultation, Normal air movement Heart Exam: Positive: Rate Normal, Normal S1, Normal S2 Abdomen Exam: Positive: Soft; Negative: Tenderness Extremity Exam: Negative: Tenderness, Swelling Psych Exam: Positive: Oriented x 3 Vital Signs Vital Signs Date Time Temp Pulse Resp B/P (MAP) Pulse Ox O2 Delivery O2 Flow Rate FiO2 12/10/18 10:51 96.8 85 16 124/70 97 Room Air Laboratory Data Labs 24H Laboratory Tests 2 12/10/18 11:15: Immature Granulocyte % (Auto) 0.9, White Blood Count 9.2, Red Blood Count 3.03L, Hemoglobin 9.0L, Hematocrit 29.5L, Mean Corpuscular Volume 97.4H, Mean Corpuscular Hemoglobin 29.7, Mean Corpuscular Hemoglobin Concent 30.5L, Red Cell Distribution Width 13.9, Platelet Count 238, Neutrophils (%) (Auto) 77.1H, Lymphocytes (%) (Auto) 9.9L, Monocytes (%) (Auto) 10.1H, Eosinophils (%) (Auto) 1.8, Basophils (%) (Auto) 0.2, Neutrophils # (Auto) 7.1, Lymphocytes # (Auto) 0.9L, Monocytes # (Auto) 0.9H, Eosinophils # (Auto) 0.2, Basophils # (Auto) 0.0, Nucleated Red Blood Cells % (auto) 0.0, Anion Gap 9, Glomerular Filtration Rate 31.6L, Estimated Mean Plasma Glucose 128H, Hemoglobin A1c 6.1, Blood Urea Nitrogen 57H, Creatinine 2.14H, Sodium Level 142, Potassium Level 4.5, Chloride Level 115H, Carbon Dioxide Level 18L, Calcium Level 8.2L 12/10/18 11:23: Bedside Glucose (Misc Panel) 35*L 12/10/18 13:09: Bedside Glucose (Misc Panel) 58L 12/10/18 14:05: Bedside Glucose (Misc Panel) 50L 12/10/18 15:21: Bedside Glucose (Misc Panel) 94 CBC/BMP Laboratory Tests 12/10/18 11:15 Red Blood Count 3.03 L, Mean Corpuscular Volume 97.4 H, Mean Corpuscular Hemoglobin 29.7, Mean Corpuscular Hemoglobin Concent 30.5 L, Red Cell Distribution Width 13.9, Neutrophils (%) (Auto) 77.1 H, Lymphocytes (%) (Auto) 9.9 L, Monocytes (%) (Auto) 10.1 H, Eosinophils (%) (Auto) 1.8, Basophils (%) (Auto) 0.2, Neutrophils # (Auto) 7.1, Lymphocytes # (Auto) 0.9 L, Monocytes # (Auto) 0.9 H, Eosinophils # (Auto) 0.2, Basophils # (Auto) 0.0, Calcium Level 8.2 L Plan / VTE VTE Prophylaxis Ordered?: Yes Plan Plan Hypoglycemic event 2/2 Oral Meds HgbA1c noted to be 6.1%--at this point, the patient would be better served to be off of oral hypoglycemics as his risk of hypoglycemia is high, and his glucose levels may be too strictly controlled. We will start the patient on IV fluids with dextrose at a judicious rate given his history of congestive heart failure Frequent fingerstick checks ordered Hypoglycemic protocol ordered We will continue to monitor the patient in the PCU Chronic kidney disease stage III Serum Cr at baseline CHF (diastolic dysfunction, EF 65%) The patient does not appear to be volume decompensated at this time Cont Lasix as ordered Coronary artery disease with coronary bypass grafting and PCI. Continue with aspirin 325 mg daily, Plavix, Coreg, Atorvastatin Hypertension was stable Coreg, Norvasc COPD, stable Continue Current regimen DVT prophylaxis Heparin CONI ANDREWS MD Dec 10, 2018 16:01
[2018-12-10] MEDS: FUROSEMIDE 40 MG TAB PO SCH (17:00)
[2018-12-10 17:40] VITALS: BP 153/67
[2018-12-10 20:00] VITALS: BP 124/57
[2018-12-10] MEDS: HEPARIN SOD (PORCINE) 5000 UNITS/ML VIAL SC SCH (21:56)
[2018-12-10] MEDS: GEMFIBROZIL 600 MG TAB PO SCH (21:56)
[2018-12-10] MEDS: ATORVASTATIN 20 MG TAB PO SCH (21:57)
[2018-12-10] MEDS: CYCLOBENZAPRINE 5MG TABLET PO SCH (21:57)
[2018-12-10] MEDS: CARVedilol 12.5 MG TAB PO SCH (21:57)
[2018-12-11] VITALS: BP 131/63
[2018-12-11] MEDS ORDERED: DEXTROSE 50% 50 ML SYRINGE IV STA ×2 (02:12→08:55)
[2018-12-11 04:00] VITALS: BP 143/80
[2018-12-11 05:33] LABS: HEMATOCRIT 28.7 % (42.0-52.0); HEMOGLOBIN 8.8 g/dl (13.5-17.5); MEAN CORPUSCULAR HEMOGLOBIN 29.4 pg (27.0-33.0); MEAN CORPUSCULAR HGB CONC 30.7 g/dl (32.0-36.5); PLATELET COUNT, AUTOMATED 218 10^3/uL (150-450); RED BLOOD COUNT 2.99 10^6/uL (4.30-6.10); WHITE BLOOD COUNT 7.8 10^3/uL (4.0-10.0)
[2018-12-11 05:50] LABS: CALCIUM LEVEL 8.5 MG/DL (8.8-10.2); CREATININE FOR GFR 1.92 MG/DL (0.70-1.30); GLOMERULAR FILTRATION RATE 35.8 (>35); MAGNESIUM LEVEL 2.1 MG/DL (1.8-2.4); POTASSIUM SERUM 4.8 MEQ/L (3.5-5.1)
[2018-12-11] MEDS: D5W/0.45% SODIUM CHLORIDE 1,000 ML IV SCH ×2 (06:12→18:20)
[2018-12-11] MEDS: TIOTROPIUM INHALER/CAPSULE (SPIRIVA) INH SCH (07:57)
[2018-12-11 08:00] VITALS: BP 149/67
[2018-12-11] MEDS ORDERED: ONDANSETRON 4MG/2ML VIAL (J2405) IV PRN (09:00)
[2018-12-11] MEDS: GEMFIBROZIL 600 MG TAB PO SCH ×2 (09:13→20:47)
[2018-12-11] MEDS: CLOPIDOGREL 75 MG TAB PO SCH (09:13)
[2018-12-11] MEDS: PANTOPRAZOLE 40MG TAB (PROTONIX) PO SCH (09:13)
[2018-12-11] MEDS: ASPIRIN 325 MG TAB PO SCH (09:13)
[2018-12-11] MEDS: FERROUS SULFATE 325MG TAB PO SCH (09:13)
[2018-12-11] MEDS: MAGNESIUM OXIDE 400 MG TAB (MAG-OX) PO SCH (09:14)
[2018-12-11] MEDS: CYCLOBENZAPRINE 5MG TABLET PO SCH ×2 (09:16→20:48)
[2018-12-11] MEDS: CARVedilol 12.5 MG TAB PO SCH ×2 (09:16→20:48)
[2018-12-11] MEDS: FUROSEMIDE 40 MG TAB PO SCH ×2 (09:16→18:19)
[2018-12-11] MEDS: HEPARIN SOD (PORCINE) 5000 UNITS/ML VIAL SC SCH ×2 (09:17→20:47)
--- NOTE | 2018-12-11 09:49 | IPNPDOC ---
Subjective Date Seen The patient was seen on 12/11/18. Subjective Chief Complaint/HPI Patient seen and examined at the bedside. Denies any acute overnight events. However, the patient's blood sugar levels remain labile and have stayed on the lower end. The patient denies any acute complaints of lightheadedness, dizziness, chest pain, palpitations, pain, or any nausea/vomiting/diarrhea. Objective Physical Examination General Exam: Positive: Alert, Cooperative, No Acute Distress ENT Exam: Positive: Atraumatic, Mucous membr. moist/pink Neck Exam: Negative: JVD Chest Exam: Positive: Clear to auscultation, Normal air movement Heart Exam: Positive: Rate Normal, Normal S1, Normal S2 Abdomen Exam: Positive: Soft; Negative: Tenderness Extremity Exam: Negative: Tenderness, Swelling Psych Exam: Positive: Oriented x 3 Assessment /Plan Plan/VTE VTE Prophylaxis Ordered?: Yes Plan Hypoglycemic event 2/ Oral Meds HgbA1c noted to be 6.1%--at this point, the patient would be better served to be off of oral hypoglycemics as his risk of hypoglycemia is high, and his glucose levels may be too strictly controlled. Cont IV fluids with dextrose at a judicious rate given his history of congestive heart failure Frequent fingerstick checks ordered Hypoglycemic protocol ordered We will continue to monitor the patient in the PCU Chronic kidney disease stage III Serum Cr at baseline CHF (diastolic dysfunction, EF 65%) The patient does not appear to be volume decompensated at this time Cont Lasix as ordered Coronary artery disease with coronary bypass grafting and PCI. Continue with aspirin 325 mg daily, Plavix, Coreg, Atorvastatin Hypertension was stable Coreg, Norvasc COPD, stable Continue Current regimen DVT prophylaxis Heparin SC VS, I&O, 24H, Lexie Vital Signs/I&O Vital Signs Date Time Temp Pulse Resp B/P (MAP) Pulse Ox O2 Delivery O2 Flow Rate FiO2 12/11/18 09:16 89 149/67 12/11/18 08:00 98.2 22 99 2.0 12/10/18 10:51 Room Air I&O- Last 24 Hours up to 6 AM 12/11/18 06:00 Intake Total 1320 ml Output Total 1000 ml Balance 320 ml Laboratory Data 24H LABS Laboratory Tests 2 12/10/18 11:15: Immature Granulocyte % (Auto) 0.9, White Blood Count 9.2, Red Blood Count 3.03L, Hemoglobin 9.0L, Hematocrit 29.5L, Mean Corpuscular Volume 97.4H, Mean Corpuscular Hemoglobin 29.7, Mean Corpuscular Hemoglobin Concent 30.5L, Red Cell Distribution Width 13.9, Platelet Count 238, Neutrophils (%) (Auto) 77.1H, Lymphocytes (%) (Auto) 9.9L, Monocytes (%) (Auto) 10.1H, Eosinophils (%) (Auto) 1.8, Basophils (%) (Auto) 0.2, Neutrophils # (Auto) 7.1, Lymphocytes # (Auto) 0.9L, Monocytes # (Auto) 0.9H, Eosinophils # (Auto) 0.2, Basophils # (Auto) 0.0, Nucleated Red Blood Cells % (auto) 0.0, Anion Gap 9, Glomerular Filtration Rate 31.6L, Estimated Mean Plasma Glucose 128H, Hemoglobin A1c 6.1, Blood Urea Nitrogen 57H, Creatinine 2.14H, Sodium Level 142, Potassium Level 4.5, Chloride Level 115H, Carbon Dioxide Level 18L, Calcium Level 8.2L 12/10/18 11:23: Bedside Glucose (Misc Panel) 35*L 12/10/18 13:09: Bedside Glucose (Misc Panel) 58L 12/10/18 14:05: Bedside Glucose (Misc Panel) 50L 12/10/18 15:21: Bedside Glucose (Misc Panel) 94 12/10/18 16:31: Bedside Glucose (Misc Panel) 79L 12/10/18 17:25: Bedside Glucose (Misc Panel) 155H 12/10/18 17:49: Bedside Glucose (Misc Panel) 123H 12/10/18 18:53: Bedside Glucose (Misc Panel) 97 12/10/18 19:58: Bedside Glucose (Misc Panel) 83 12/10/18 21:20: Bedside Glucose (Misc Panel) 74L 12/10/18 22:02: Bedside Glucose (Misc Panel) 63L 12/10/18 23:05: Bedside Glucose (Misc Panel) 75L 12/11/18 00:33: Bedside Glucose (Misc Panel) 54L 12/11/18 01:03: Bedside Glucose (Misc Panel) 58L 12/11/18 01:34: Bedside Glucose (Misc Panel) 66L 12/11/18 02:06: Bedside Glucose (Misc Panel) 64L 12/11/18 02:59: Bedside Glucose (Misc Panel) 151H 12/11/18 04:07: Bedside Glucose (Misc Panel) 97 12/11/18 04:56: Nucleated Red Blood Cells % (auto) 0.0, Anion Gap 8, Glomerular Filtration Rate 35.8, Blood Urea Nitrogen 52H, Creatinine 1.92H, Sodium Level 140, Potassium Level 4.8, Chloride Level 113H, Carbon Dioxide Level 19L, Calcium Level 8.5L, Magnesium Level 2.1 12/11/18 05:22: Bedside Glucose (Misc Panel) 70L 12/11/18 06:13: Bedside Glucose (Misc Panel) 62L 12/11/18 08:11: Bedside Glucose (Misc Panel) 58L 12/11/18 08:53: Bedside Glucose (Misc Panel) 56L CBC/BMP Laboratory Tests 12/10/18 11:15 Red Blood Count 3.03 L, Mean Corpuscular Volume 97.4 H, Mean Corpuscular Hemoglobin 29.7, Mean Corpuscular Hemoglobin Concent 30.5 L, Red Cell Distribution Width 13.9, Neutrophils (%) (Auto) 77.1 H, Lymphocytes (%) (Auto) 9.9 L, Monocytes (%) (Auto) 10.1 H, Eosinophils (%) (Auto) 1.8, Basophils (%) (Auto) 0.2, Neutrophils # (Auto) 7.1, Lymphocytes # (Auto) 0.9 L, Monocytes # (Auto) 0.9 H, Eosinophils # (Auto) 0.2, Basophils # (Auto) 0.0, Calcium Level 8.2 L 12/11/18 04:56 Red Blood Count 2.99 L, Mean Corpuscular Volume 96.0, Mean Corpuscular Hemoglobin 29.4, Mean Corpuscular Hemoglobin Concent 30.7 L, Red Cell Distribution Width 13.9, Calcium Level 8.5 L CONI CHAMBERS MD Dec 11, 2018 09:49
[2018-12-11 12:00] VITALS: BP 128/60
[2018-12-11 16:00] VITALS: BP 132/63
[2018-12-11] MEDS ORDERED: diazePAM 5 MG TAB PO ONE (17:45)
[2018-12-11] MEDS: ACETAMINOPHEN TAB 650MG DOSE (2X325MG) PO PRN (18:19)
[2018-12-11 20:00] VITALS: BP 138/63
[2018-12-11] MEDS: ATORVASTATIN 20 MG TAB PO SCH (20:47)
[2018-12-12] VITALS: BP 127/53
[2018-12-12] MEDS ORDERED: DEXTROSE 50% 50 ML SYRINGE IV STA (01:22)
[2018-12-12 04:00] VITALS: BP 121/55
[2018-12-12 08:00] VITALS: BP 133/62
[2018-12-12] MEDS: ALBUTEROL 90 MCG/ACT 8GM HFA INHALER INH PRN (08:42)
[2018-12-12] MEDS: PANTOPRAZOLE 40MG TAB (PROTONIX) PO SCH (09:02)
[2018-12-12] MEDS: ASPIRIN 325 MG TAB PO SCH (09:02)
[2018-12-12] MEDS: CLOPIDOGREL 75 MG TAB PO SCH (09:02)
[2018-12-12] MEDS: MAGNESIUM OXIDE 400 MG TAB (MAG-OX) PO SCH (09:02)
[2018-12-12] MEDS: GEMFIBROZIL 600 MG TAB PO SCH ×2 (09:02→20:16)
[2018-12-12] MEDS: CYCLOBENZAPRINE 5MG TABLET PO SCH ×2 (09:02→20:16)
[2018-12-12] MEDS: HEPARIN SOD (PORCINE) 5000 UNITS/ML VIAL SC SCH ×2 (09:03→20:16)
[2018-12-12] MEDS: FUROSEMIDE 40 MG TAB PO SCH ×2 (09:03→17:40)
[2018-12-12] MEDS: FERROUS SULFATE 325MG TAB PO SCH (09:03)
[2018-12-12] MEDS: CARVedilol 12.5 MG TAB PO SCH ×2 (09:03→20:17)
[2018-12-12] MEDS: D5W/0.45% SODIUM CHLORIDE 1,000 ML IV SCH ×2 (09:07→20:26)
[2018-12-12 12:00] VITALS: BP 127/57
[2018-12-12] MEDS: TIOTROPIUM INHALER/CAPSULE (SPIRIVA) INH SCH (15:20)
[2018-12-12 16:00] VITALS: BP 113/69
--- NOTE | 2018-12-12 19:02 | IPNPDOC ---
Subjective Date Seen The patient was seen on 12/12/18. Subjective Chief Complaint/HPI Mr. Bliss is an 83-year-old male who was admitted with hypoglycemia. Events since last encounter continues with hypoglycemia despite being on a dextrose drip. This morning blood sugars range from 64-84. General: Denies: ROS Unobtainable, Chills, Night Sweats, Fatigue, Malaise, Normal Appetite, Other Symptoms Constitutional: Denies: Chills, Fever, Malaise, Night Sweats, Weakness, Fatigue, Weight Loss, Lethargy, Other Eyes: Denies: Pain, Vision change, Conjunctivae inflammation, Eyelid inflammation, Redness, Other ENT: Denies: Head Aches, Ear Pain, Dysphagia, Sinus Congestion, Post Nasal Drip, Sore Throat, Epistaxis, Other Symptoms Skin: Denies: Rash, Lesions, Jaundice, Bruising, Itching, Dry, Breakdown, Nail Changes, Other Pulmonary: Denies: Dyspnea, Cough, Pleuritic Chest Pain, Other Symptoms Cardiovascular: Denies: Chest Pain, Palpitations, Orthopnea, Paroxysmal Noc. Dyspnea, Edema, Lt Headedness, Other Symptoms Gastrointestinal: Denies: Nausea, Vomiting, Abdominal Pain, Diarrhea, Constipation, Melena, Hematochezia, Other Symptoms Genitourinary: Denies: Dysuria, Frequency, Incontinence, Hematuria, Retention, Other Symptoms Hematologic: Denies: Bruising, Bleeding Excessively, Petecchia, Purpura, Enlarged Lymph Nodes, Other Hematologic Endocrine: Denies: Polydipsia, Polyphagia, Polyuria, Heat Intolerance, Cold Intolerance, Other Endocrine Sx Musculoskeletal: Denies: Neck Pain, Back Pain, Shoulder Pain, Arm Pain, Hand Pain, Leg Pain, Foot Pain, Joint Pain, Muscle Pain, Spasms, Other Symptoms Neurological: Denies: Weakness, Numbness, Incoordination, Change in speech, Confusion, Seizures, Other Symptoms Psych: Denies: Mood Normal, Anxiety, Depression, Memory Issues, Thoughts of Self Harm, Anger, Thoughts of Harming Other, Other Psych Other systems Review of systems is otherwise negative except as stated. Objective Physical Examination General Exam: Positive: Alert, Cooperative, No Acute Distress Eye Exam: Positive: PERRLA, Conjunctiva & lids normal, EOMI; Negative: Sclera icteric ENT Exam: Positive: Atraumatic, Mucous membr. moist/pink Neck Exam: Positive: Supple; Negative: JVD Chest Exam: Positive: Clear to auscultation, Normal air movement Heart Exam: Positive: Rate Normal, Regular Rhythm, Normal S1, Normal S2 Telemetry: Positive: No significant arrhythmia Abdomen Exam: Positive: Normal bowel sounds, Soft; Negative: BS Hyperactive, BS Hypoactive, Tenderness, Hepatospenomegaly, Mass, Hernia, Other Extremity Exam: Positive: Normal pulses; Negative: Clubbing, Cyanosis, Edema, Tenderness, Swelling, Other Skin Exam: Positive: Nl turgor and temperature Psych Exam: Positive: Oriented x 3, Other (depressed mood) Assessment /Plan Problems (1) Hypoglycemia Permanent Comment: He continues on dextrose drip for now. Suspect it is taking a while to metabolize his usual oral anti-hyperglycemia agents. Last Edited By: Hillary Cordoba MD on Dec 12, 2018 19:02 Status: Acute Problem Specific Plan: Repeat Labs Plan/VTE VTE Prophylaxis Ordered?: Yes VS, I&O, 24H, Fishbone Vital Signs/I&O Vital Signs Date Time Temp Pulse Resp B/P (MAP) Pulse Ox O2 Delivery O2 Flow Rate FiO2 12/12/18 16:00 98.0 88 22 113/69 (84) 90 12/12/18 04:00 2.0 12/10/18 10:51 Room Air I&O- Last 24 Hours up to 6 AM 12/12/18 06:00 Intake Total 2940 ml Output Total 1600 ml Balance 1340 ml Laboratory Data 24H LABS Laboratory Tests 2 12/11/18 19:19: Bedside Glucose (Misc Panel) 108 12/11/18 20:13: Bedside Glucose (Misc Panel) 105 12/11/18 20:59: Bedside Glucose (Misc Panel) 95 12/11/18 22:19: Bedside Glucose (Misc Panel) 111H 12/11/18 23:19: Bedside Glucose (Misc Panel) 76L 12/12/18 00:24: Bedside Glucose (Misc Panel) 60L 12/12/18 01:07: Bedside Glucose (Misc Panel) 53L 12/12/18 01:25: Bedside Glucose (Misc Panel) 55L 12/12/18 02:13: Bedside Glucose (Misc Panel) 141H 12/12/18 03:17: Bedside Glucose (Misc Panel) 117H 12/12/18 04:23: Bedside Glucose (Misc Panel) 97 12/12/18 05:12: Bedside Glucose (Misc Panel) 92 12/12/18 05:58: Bedside Glucose (Misc Panel) 72L 12/12/18 07:07: Bedside Glucose (Misc Panel) 60L 12/12/18 07:58: Bedside Glucose (Misc Panel) 60L 12/12/18 09:01: Bedside Glucose (Misc Panel) 47L 12/12/18 09:30: Bedside Glucose (Misc Panel) 64L 12/12/18 10:09: Bedside Glucose (Misc Panel) 71L 12/12/18 11:13: Bedside Glucose (Misc Panel) 85 12/12/18 12:03: Bedside Glucose (Misc Panel) 79L 12/12/18 13:22: Bedside Glucose (Misc Panel) 99 12/12/18 14:08: Bedside Glucose (Misc Panel) 89 12/12/18 15:21: Bedside Glucose (Misc Panel) 76L 12/12/18 16:18: Bedside Glucose (Misc Panel) 77L 12/12/18 17:06: Bedside Glucose (Misc Panel) 65L 12/12/18 18:10: Bedside Glucose (Misc Panel) 92 HILLARY CORDOBA MD Dec 12, 2018 19:02
[2018-12-12 20:00] VITALS: BP 124/57
[2018-12-12] MEDS: ATORVASTATIN 20 MG TAB PO SCH (20:16)
[2018-12-12 20:38] LABS: CALCIUM LEVEL 8.5 MG/DL (8.8-10.2); CREATININE FOR GFR 1.84 MG/DL (0.70-1.30); GLOMERULAR FILTRATION RATE 37.6 (>35); POTASSIUM SERUM 4.9 MEQ/L (3.5-5.1)
[2018-12-13] VITALS: BP 135/62
[2018-12-13 04:00] VITALS: BP 135/97
[2018-12-13 05:32] LABS: HEMATOCRIT 28.7 % (42.0-52.0); HEMOGLOBIN 8.4 g/dl (13.5-17.5); MEAN CORPUSCULAR HEMOGLOBIN 28.9 pg (27.0-33.0); MEAN CORPUSCULAR HGB CONC 29.3 g/dl (32.0-36.5); MEAN CORPUSCULAR VOLUME 98.6 fl (80.0-96.0); PLATELET COUNT, AUTOMATED 219 10^3/uL (150-450); RED BLOOD COUNT 2.91 10^6/uL (4.30-6.10); WHITE BLOOD COUNT 11.1 10^3/uL (4.0-10.0)
[2018-12-13 05:52] LABS: CALCIUM LEVEL 8.3 MG/DL (8.8-10.2); CREATININE FOR GFR 1.87 MG/DL (0.70-1.30); GLOMERULAR FILTRATION RATE 36.9 (>35); POTASSIUM SERUM 4.7 MEQ/L (3.5-5.1)
[2018-12-13 08:00] VITALS: BP 123/59
[2018-12-13] MEDS: ASPIRIN 325 MG TAB PO SCH (08:44)
[2018-12-13] MEDS: CLOPIDOGREL 75 MG TAB PO SCH (08:44)
[2018-12-13] MEDS: CYCLOBENZAPRINE 5MG TABLET PO SCH ×2 (08:44→20:12)
[2018-12-13] MEDS: FUROSEMIDE 40 MG TAB PO SCH ×2 (08:44→16:07)
[2018-12-13] MEDS: GEMFIBROZIL 600 MG TAB PO SCH ×2 (08:44→20:12)
[2018-12-13] MEDS: HEPARIN SOD (PORCINE) 5000 UNITS/ML VIAL SC SCH ×2 (08:45→20:11)
[2018-12-13] MEDS: FERROUS SULFATE 325MG TAB PO SCH (08:45)
[2018-12-13] MEDS: MAGNESIUM OXIDE 400 MG TAB (MAG-OX) PO SCH (08:45)
[2018-12-13] MEDS: CARVedilol 12.5 MG TAB PO SCH ×2 (08:45→20:12)
[2018-12-13] MEDS: PANTOPRAZOLE 40MG TAB (PROTONIX) PO SCH (08:45)
[2018-12-13] MEDS: TIOTROPIUM INHALER/CAPSULE (SPIRIVA) INH SCH (09:17)
[2018-12-13] MEDS ORDERED: D10W/0.45% SODIUM CHLORIDE 1,000 ML IV SCH (09:30)
[2018-12-13 12:00] VITALS: BP 140/64
[2018-12-13] MEDS: ALBUTEROL 90 MCG/ACT 8GM HFA INHALER INH PRN (12:24)
[2018-12-13 16:00] VITALS: BP 136/63
--- NOTE | 2018-12-13 19:31 | IPNPDOC ---
Text Note Date of Service The patient was seen on 12/13/18. NOTE SUBJECTIVE: Mr. Bliss is an 83-year-old male admitted with hypoglycemia. We have been managing him with a dextrose drip. His blood sugars have stayed about 60- 70. The patient relates he has had these episodes in the past. In fact, he states he had 3 episodes in the past week. We continue to be concerned that this is related to his medications. OBJECTIVE: General: Up in chair, alert, no acute distress. ENT: Oral mucosa is moist, no scleral icterus or injection, neck is supple with no adenopathy or thyromegaly. Cardiovascular: Regular rate and rhythm with a normal S1 and S2, no appreciable murmur. Respiratory: Clear to auscultation with good air movement. Abdomen: Nontender, nondistended, soft, bowel tones present. Extremities: Pedal pulses are readily palpable. Neuro: No remarkable neuromotor or sensory deficits ASSESSMENT/PLAN: [id number] diabetes mellitus with hypoglycemia--the patient has not had significant response to his current dextrose drip of D5-1/2normal saline. The patient's oral agents include Amaryl and Januvia. Given his description of episodes over the past week. Concern is raised that the dosages of these medications are too high for him and that he is not clearing them. Her inquiry with pharmacy, with normal renal function the half life of Januvia is 62.5 hours in the half life of Amaryl is 45 hours. It is probably longer in this patient with chronic kidney disease stage III. Plans are to increase his dextrose concentration to see if he will respond. If he does not we may need to consider an agent such as glucagon. VS,Fishbone, I+O VS, Fishbone, I+O Laboratory Tests 12/12/18 20:08 Calcium Level 8.5 L 12/13/18 04:58 Calcium Level 8.3 L, Red Blood Count 2.91 L, Mean Corpuscular Volume 98.6 H, Mean Corpuscular Hemoglobin 28.9, Mean Corpuscular Hemoglobin Concent 29.3 L, Red Cell Distribution Width 14.0 Vital Signs Date Time Temp Pulse Resp B/P (MAP) Pulse Ox O2 Delivery O2 Flow Rate FiO2 12/13/18 16:00 2.0 12/13/18 16:00 98.6 90 18 136/63 (87) 94 12/10/18 10:51 Room Air I&O- Last 24 Hours up to 6 AM 12/13/18 06:00 Intake Total 2860 ml Output Total 1675 ml Balance 1185 ml BREANN HERRERA MD Dec 13, 2018 19:31
[2018-12-13 20:00] VITALS: BP 145/63
[2018-12-13] MEDS: ATORVASTATIN 20 MG TAB PO SCH (20:12)
[2018-12-14] VITALS: BP 103/51
[2018-12-14 04:00] VITALS: BP 113/58
[2018-12-14 04:16] LABS: HEMATOCRIT 26.3 % (42.0-52.0); HEMOGLOBIN 8.1 g/dl (13.5-17.5); MEAN CORPUSCULAR HEMOGLOBIN 29.5 pg (27.0-33.0); MEAN CORPUSCULAR HGB CONC 30.8 g/dl (32.0-36.5); MEAN CORPUSCULAR VOLUME 95.6 fl (80.0-96.0); PLATELET COUNT, AUTOMATED 239 10^3/uL (150-450); RED BLOOD COUNT 2.75 10^6/uL (4.30-6.10); WHITE BLOOD COUNT 8.9 10^3/uL (4.0-10.0)
[2018-12-14 04:35] LABS: CALCIUM LEVEL 8.3 MG/DL (8.8-10.2); CREATININE FOR GFR 1.78 MG/DL (0.70-1.30); GLOMERULAR FILTRATION RATE 39.1 (>35); POTASSIUM SERUM 4.7 MEQ/L (3.5-5.1)
[2018-12-14] MEDS: TIOTROPIUM INHALER/CAPSULE (SPIRIVA) INH SCH (07:49)
[2018-12-14 08:00] VITALS: BP 142/66
[2018-12-14] MEDS: FERROUS SULFATE 325MG TAB PO SCH (08:14)
[2018-12-14] MEDS: MAGNESIUM OXIDE 400 MG TAB (MAG-OX) PO SCH (08:14)
[2018-12-14] MEDS: PANTOPRAZOLE 40MG TAB (PROTONIX) PO SCH (08:14)
[2018-12-14] MEDS: CLOPIDOGREL 75 MG TAB PO SCH (08:14)
[2018-12-14] MEDS: GEMFIBROZIL 600 MG TAB PO SCH ×2 (08:14→21:44)
[2018-12-14] MEDS: CYCLOBENZAPRINE 5MG TABLET PO SCH ×2 (08:14→21:44)
[2018-12-14] MEDS: ASPIRIN 325 MG TAB PO SCH (08:14)
[2018-12-14] MEDS: FUROSEMIDE 40 MG TAB PO SCH ×2 (08:15→17:09)
[2018-12-14] MEDS: HEPARIN SOD (PORCINE) 5000 UNITS/ML VIAL SC SCH ×2 (08:15→21:43)
[2018-12-14] MEDS: CARVedilol 12.5 MG TAB PO SCH ×2 (08:15→21:44)
[2018-12-14] MEDS: ALBUTEROL 90 MCG/ACT 8GM HFA INHALER INH PRN (12:41)
--- NOTE | 2018-12-14 14:40 | IPNPDOC ---
Text Note Date of Service The patient was seen on 12/14/18. NOTE SUBJECTIVE: Mr. Bliss is an 83-year-old male who was admitted with hypoglycemia. He does have an underlying history of ogr-znqwtho-onuwkloul diabetes mellitus. We will managing him with dextrose drip. Yesterday we increased the dextrose concentration to 10% and he has now had increased blood sugars and was weaned off of the drip last night. He continues to maintain blood sugars greater than 100. He is also more alert and interactive. Blood sugars had been down in the 60s. OBJECTIVE: General: Up in chair, alert, no acute distress. ENT: Oral mucosa is moist, no scleral icterus or injection, neck is supple with no adenopathy or thyromegaly. Cardiovascular: Regular rate and rhythm with a normal S1 and S2, no appreciable murmur. Respiratory: Clear to auscultation with good air movement. Abdomen: Nontender, nondistended, soft, bowel tones present. Extremities: Pedal pulses are readily palpable. Neuro: No remarkable neuromotor or sensory deficits ASSESSMENT/PLAN: 1. Uaa-bnvgjfc-rzpqpshqy diabetes mellitus with hypoglycemia--The patient has responded well to IV infusion of D10. Blood sugar this morning is 147. This is after being weaned from the drip. The patient's oral agents include Amaryl and Januvia. Given his description of recurrent hypoglycemic episodes over the past week concern is raised that the dosages of these medications are too high for h im and that he is not clearing them. Per inquiry with pharmacy, with normal renal function the half life of Januvia is 62.5 hours and the half life of Amaryl is 45 hours. It is probably longer in this patient with chronic kidney disease stage III. The patient's hypoglycemia is now resolved. We would not recommend resumption of his Januvia or Amaryl. We will monitor him on the medical floor for an additional night off of the dextrose drip and off of medications. He will receive insulin only as needed. 2. Chronic kidney disease stage III--creatinine is stable at 1.78. 3. The patient also has coronary artery disease, oxygen dependent COPD and reported congestive heart failure. He has not had exacerbation of these conditions during his hospital stay. VS,Fishbone, I+O VS, Fishbone, I+O Laboratory Tests 12/14/18 03:46 Red Blood Count 2.75 L, Mean Corpuscular Volume 95.6, Mean Corpuscular Hemoglobin 29.5, Mean Corpuscular Hemoglobin Concent 30.8 L, Red Cell Distribution Width 14.3, Calcium Level 8.3 L Vital Signs Date Time Temp Pulse Resp B/P (MAP) Pulse Ox O2 Delivery O2 Flow Rate FiO2 12/14/18 08:15 85 142/66 12/14/18 08:00 2.0 12/14/18 08:00 98.6 22 98 12/10/18 10:51 Room Air l I&O- Last 24 Hours up to 6 AM 12/14/18 06:00 Intake Total 1110 ml Output Total 1675 ml Balance -565 ml BREANN HERRERA MD Dec 14, 2018 14:40
[2018-12-14 15:30] VITALS: BP 143/70
[2018-12-14] MEDS: ATORVASTATIN 20 MG TAB PO SCH (21:43)
[2018-12-14 22:00] VITALS: BP 125/64
[2018-12-15 06:00] VITALS: BP 133/89
[2018-12-15 06:26] LABS: HEMATOCRIT 26.4 % (42.0-52.0); HEMOGLOBIN 8.1 g/dl (13.5-17.5); MEAN CORPUSCULAR HEMOGLOBIN 28.1 pg (27.0-33.0); MEAN CORPUSCULAR HGB CONC 30.7 g/dl (32.0-36.5); MEAN CORPUSCULAR VOLUME 91.7 fl (80.0-96.0); PLATELET COUNT, AUTOMATED 273 10^3/uL (150-450); RED BLOOD COUNT 2.88 10^6/uL (4.30-6.10); WHITE BLOOD COUNT 9.2 10^3/uL (4.0-10.0)
[2018-12-15 06:49] LABS: CALCIUM LEVEL 9.1 MG/DL (8.8-10.2); CREATININE FOR GFR 1.86 MG/DL (0.70-1.30); GLOMERULAR FILTRATION RATE 37.1 (>35); POTASSIUM SERUM 4.3 MEQ/L (3.5-5.1)
[2018-12-15] MEDS: TIOTROPIUM INHALER/CAPSULE (SPIRIVA) INH SCH (07:15)
[2018-12-15] MEDS: FERROUS SULFATE 325MG TAB PO SCH (08:41)
[2018-12-15] MEDS: PANTOPRAZOLE 40MG TAB (PROTONIX) PO SCH (08:42)
[2018-12-15] MEDS: FUROSEMIDE 40 MG TAB PO SCH ×2 (08:42→18:04)
[2018-12-15] MEDS: CLOPIDOGREL 75 MG TAB PO SCH (08:42)
[2018-12-15] MEDS: GEMFIBROZIL 600 MG TAB PO SCH ×2 (08:42→22:22)
[2018-12-15] MEDS: MAGNESIUM OXIDE 400 MG TAB (MAG-OX) PO SCH (08:42)
[2018-12-15] MEDS: CARVedilol 12.5 MG TAB PO SCH ×2 (08:42→22:21)
[2018-12-15] MEDS: CYCLOBENZAPRINE 5MG TABLET PO SCH ×2 (08:42→22:21)
[2018-12-15] MEDS: ASPIRIN 325 MG TAB PO SCH (08:42)
[2018-12-15] MEDS: ACETAMINOPHEN TAB 650MG DOSE (2X325MG) PO PRN ×2 (08:43→18:04)
[2018-12-15] MEDS: HEPARIN SOD (PORCINE) 5000 UNITS/ML VIAL SC SCH ×2 (08:43→22:22)
[2018-12-15 14:00] VITALS: BP 139/60
--- NOTE | 2018-12-15 15:29 | IPNPDOC ---
Text Note Date of Service The patient was seen on 12/15/18. NOTE SUBJECTIVE: Mr. Bliss is an 83-year-old male with a history of qxd-vsiivrd-iblpdhxux diabetes mellitus. He was admitted with hypoglycemia that was fairly refractory even to dextrose drip. His hypoglycemia was attributed to his home oral medications. These appear to have been fully metabolized now and he has done well overnight maintaining blood sugars even greater than 200 without a dextrose drip. OBJECTIVE: General: Up in chair, alert, no acute distress. ENT: Oral mucosa is moist, no scleral icterus or injection, neck is supple with no adenopathy or thyromegaly. Cardiovascular: Regular rate and rhythm with a normal S1 and S2, no appreciable murmur. Respiratory: Clear to auscultation with good air movement. Abdomen: Nontender, nondistended, soft, bowel tones present. Extremities: Pedal pulses are readily palpable. Neuro: No remarkable neuromotor or sensory deficits ASSESSMENT/PLAN: 1. Uth-syflwfs-ukvodtssn diabetes mellitus with hypoglycemia--the patient is now off dextrose drip. He has been on for 24 hours. Overnight he had Accu-Cheks ranging from 202-279. We are hesitant to restore him to his prior medication dosages and so we will make use of sliding scale insulin for now for glucose management. 2. Chronic kidney disease stage III--creatinine remained stable. 3. 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 He has not had exacerbation of any these conditions during his hospital stay. Initially, per evaluation by physical and occupational therapy services. He was not thought to be safe to go home; however, he has made substantial improvement and recommendations are now that he would be able to go home tomorrow with home health services. VS,Fishbone, I+O VS, Fishbone, I+O Laboratory Tests 12/15/18 05:53 Red Blood Count 2.88 L, Mean Corpuscular Volume 91.7, Mean Corpuscular Hemoglobin 28.1, Mean Corpuscular Hemoglobin Concent 30.7 L, Red Cell Distribution Width 14.2, Calcium Level 9.1 Vital Signs Date Time Temp Pulse Resp B/P (MAP) Pulse Ox O2 Delivery O2 Flow Rate FiO2 12/15/18 08:42 81 117/79 12/15/18 06:00 97.8 20 95 1.0 12/10/18 10:51 Room Air I&O- Last 24 Hours up to 6 AM 12/15/18 06:00 Intake Total 1260 ml Output Total 3028 ml Balance -1768 ml BREANN HERRERA MD Dec 15, 2018 15:29
[2018-12-15] MEDS ORDERED: GLUCAGON FOR INJ 1 MG VIAL (J1610) SC PRN (15:30)
[2018-12-15] MEDS ORDERED: GLUCOSE 4 GM CHEW TABLET PO PRN (15:30)
[2018-12-15] MEDS ORDERED: DEXTROSE 50% 50 ML SYRINGE IV PRN (15:30)
[2018-12-15] MEDS ORDERED: HumaLOG INSULIN (NovoLOG) PER UNIT SC SCH (17:30)
[2018-12-15] MEDS ORDERED: oxyCODONE 5MG TAB PO PRN (19:30)
[2018-12-15 22:00] VITALS: BP 154/70
[2018-12-15] MEDS: ATORVASTATIN 20 MG TAB PO SCH (22:22)
[2018-12-16] MEDS: HumaLOG INSULIN (NovoLOG) PER UNIT SC SCH ×3 (07:30→17:34)
[2018-12-16] MEDS: TIOTROPIUM INHALER/CAPSULE (SPIRIVA) INH SCH (07:34)
[2018-12-16] MEDS: MAGNESIUM OXIDE 400 MG TAB (MAG-OX) PO SCH (08:14)
[2018-12-16] MEDS: CYCLOBENZAPRINE 5MG TABLET PO SCH (08:14)
[2018-12-16] MEDS: CARVedilol 12.5 MG TAB PO SCH ×2 (08:14→21:24)
[2018-12-16] MEDS: FERROUS SULFATE 325MG TAB PO SCH (08:14)
[2018-12-16] MEDS: CLOPIDOGREL 75 MG TAB PO SCH (08:14)
[2018-12-16] MEDS: ACETAMINOPHEN TAB 650MG DOSE (2X325MG) PO PRN ×2 (08:14→17:33)
[2018-12-16] MEDS: ASPIRIN 325 MG TAB PO SCH (08:14)
[2018-12-16] MEDS: GEMFIBROZIL 600 MG TAB PO SCH ×2 (08:14→21:24)
[2018-12-16] MEDS: FUROSEMIDE 40 MG TAB PO SCH ×2 (08:14→17:00)
[2018-12-16] MEDS: HEPARIN SOD (PORCINE) 5000 UNITS/ML VIAL SC SCH ×2 (08:15→21:23)
[2018-12-16] MEDS: ALBUTEROL 90 MCG/ACT 8GM HFA INHALER INH PRN (08:28)
--- NOTE | 2018-12-16 08:49 | REP ---
Left shoulder three views : There is no fracture or dislocation. Mineralization and joint spaces are normal. There are no calcifications or foreign bodies. Impression: Negative left shoulder . Electronically Signed by Kuldeep Medina MD 12/16/2018 08:41 A
[2018-12-16] MEDS: PANTOPRAZOLE 40MG TAB (PROTONIX) PO SCH (09:53)
[2018-12-16] MEDS ORDERED: CYCLOBENZAPRINE 5MG TABLET PO PRN (11:15)
[2018-12-16] MEDS: predniSONE 20 MG TAB PO SCH (12:52)
[2018-12-16 14:00] VITALS: BP 91/56
[2018-12-16] MEDS ORDERED: NS 500 ML IV ONE (15:15)
[2018-12-16 17:17] VITALS: BP 132/62
--- NOTE | 2018-12-16 17:17 | IPNPDOC ---
Text Note Date of Service The patient was seen on 12/16/18. NOTE SUBJECTIVE: This is an 83-year-old male who had been admitted for hypoglycemia. This is attributed to his medications long half-life. His hypoglycemia did resolve with aggressive intervention. Overnight, the patient has been increasingly somnolent. The patient had been complaining of left shoulder pain and has received Flexeril and oxycodone. OBJECTIVE: General: Generally somnolent in bed ENT: Oral mucosa is moist, no scleral icterus or injection, neck is supple with no adenopathy or thyromegaly. Cardiovascular: Regular rate and rhythm with a normal S1 and S2, no appreciable murmur. Respiratory: Clear to auscultation with good air movement. Abdomen: Nontender, nondistended, soft, bowel tones present. Extremities: Pedal pulses are readily palpable, I do not consistently elicit pain to palpation of the left shoulder Neuro: No remarkable neuromotor or sensory deficits DIAGNOSTIC: Left shoulder three views : There is no fracture or dislocation. Mineralization and joint spaces are normal. There are no calcifications or foreign bodies. Impression: Negative left shoulder . Electronically Signed by Kuldeep Medina MD 12/16/2018 08:41 A ASSESSMENT/PLAN: 1. Vjx-xkhidbu-axbsxtass diabetes mellitus with hypoglycemia--the patient is now off dextrose drip. He has been on for 24 hours. Overnight he had Accu-Cheks ranging from 202-279. We are hesitant to restore him to his prior medication dosages and so we will make use of sliding scale insulin for now for glucose management. 2. Chronic kidney disease stage III--creatinine remained stable. 3. 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 He has not had exacerbation of any these conditions during his hospital stay. Initially, per evaluation by physical and occupational therapy services. He was not thought to be safe to go home; however, he has made substantial improvement and recommendations are now that he would be able to go home with home health services. 4. Left shoulder pain--this may be due to arthritis or bursitis. Patient does have elevated sedimentation rate of 73 and CRP of 10.6. Daughter at bedside states he may have exacerbated his shoulder with excessive movement of lawnmowers. The patient has unfortunately had somnolence due to receiving Flexeril and [place]. Plans are to stop the Flexeril. We will also treat his inflammation with low-dose prednisone. VS,Fishbone, I+O VS, Fishbone, I+O Vital Signs Date Time Temp Pulse Resp B/P (MAP) Pulse Ox O2 Delivery O2 Flow Rate FiO2 12/16/18 09:00 1.0 12/16/18 08:14 81 118/78 12/16/18 06:00 97.4 18 95 12/10/18 10:51 Room Air I&O- Last 24 Hours up to 6 AM 12/16/18 06:00 Intake Total 480 ml Output Total 1650 ml Balance -1170 ml BREANN HERRERA MD Dec 16, 2018 17:17
[2018-12-16] MEDS ORDERED: HumaLOG INSULIN (NovoLOG) PER UNIT SC SCH (21:00)
[2018-12-16] MEDS: ATORVASTATIN 20 MG TAB PO SCH (21:23)
[2018-12-16 22:00] VITALS: BP 119/59
[2018-12-17 06:00] VITALS: BP 128/63
[2018-12-17 06:45] LABS: HEMATOCRIT 27.6 % (42.0-52.0); HEMOGLOBIN 8.7 g/dl (13.5-17.5); MEAN CORPUSCULAR HEMOGLOBIN 29.6 pg (27.0-33.0); MEAN CORPUSCULAR HGB CONC 31.5 g/dl (32.0-36.5); MEAN CORPUSCULAR VOLUME 93.9 fl (80.0-96.0); PLATELET COUNT, AUTOMATED 272 10^3/uL (150-450); RED BLOOD COUNT 2.94 10^6/uL (4.30-6.10)
[2018-12-17 07:14] LABS: CALCIUM LEVEL 9.1 MG/DL (8.8-10.2); CREATININE FOR GFR 1.74 MG/DL (0.70-1.30); GLOMERULAR FILTRATION RATE 40.1 (>35); MAGNESIUM LEVEL 2.2 MG/DL (1.8-2.4); POTASSIUM SERUM 4.5 MEQ/L (3.5-5.1)
[2018-12-17] MEDS: TIOTROPIUM INHALER/CAPSULE (SPIRIVA) INH SCH (07:24)
[2018-12-17] MEDS ORDERED: FUROSEMIDE 20 MG TAB PO SCH (09:00)
[2018-12-17] MEDS ORDERED: CARVedilol 12.5 MG TAB PO SCH (09:00)
[2018-12-17] MEDS: HumaLOG INSULIN (NovoLOG) PER UNIT SC SCH ×2 (09:03→13:23)
[2018-12-17] MEDS: PANTOPRAZOLE 40MG TAB (PROTONIX) PO SCH (09:05)
[2018-12-17] MEDS: ACETAMINOPHEN TAB 650MG DOSE (2X325MG) PO PRN (09:05)
[2018-12-17] MEDS: ASPIRIN 325 MG TAB PO SCH (09:05)
[2018-12-17] MEDS: CLOPIDOGREL 75 MG TAB PO SCH (09:05)
[2018-12-17] MEDS: MAGNESIUM OXIDE 400 MG TAB (MAG-OX) PO SCH (09:05)
[2018-12-17] MEDS: GEMFIBROZIL 600 MG TAB PO SCH (09:05)
[2018-12-17] MEDS: FERROUS SULFATE 325MG TAB PO SCH (09:05)
[2018-12-17] MEDS: HEPARIN SOD (PORCINE) 5000 UNITS/ML VIAL SC SCH (09:06)
[2018-12-17] MEDS: predniSONE 20 MG TAB PO SCH (09:06)
[2018-12-17 10:50] VITALS: BP 116/51
[2018-12-17] MEDS ORDERED: PRED20TA PO (13:42)
[2018-12-17] MEDS ORDERED: CARV12.5 PO (13:42)
[2018-12-17] MEDS ORDERED: FURO20TA2 PO (13:42)
[2018-12-17] MEDS ORDERED: FURO40TA2 PO (13:42)
[2018-12-17] MEDS ORDERED: GLIM2TAB PO (13:43)
--- NOTE | 2018-12-17 18:00 | DS.PDOC ---
Discharge Summary General Date of Admission Dec 12, 2018 at 15:55 Date of Discharge 12/17/2018 Primary Care Physician: OSCAR REHMAN DO Attending Physician: BREANN HERRERA MD Discharge Summary PROCEDURES PERFORMED DURING STAY: None. ADMITTING DIAGNOSES: 1. Hypoglycemia. DISCHARGE DIAGNOSES: 1. Hypoglycemia, resolved, ttm-pdceimo-bgpaojrjv diabetes mellitus, chronic kidney disease stage IV, chronic respiratory failure due to oxygen dependent COPD, unspecified congestive heart failure, coronary artery disease. COMPLICATIONS/CHIEF COMPLAINT: Hypoglycemia. HISTORY OF PRESENT ILLNESS/HOSPITAL COURSE: This is an 82-year-old male with a history of yik-mwvswka-imwwqkkfu diabetes mellitus who was found down at home by his daughter. He was noted to have a blood sugar of 43. He did not have any remarkable preceding symptoms. The patient was admitted to the ICU. His blood sugars were unresponsive to dextrose boluses and so he was placed on a dextrose drip. Initially his blood sugars would not go any higher than of 64. Concern was raised that he either taken too much medication or that his medications had a prolonged half-life. In discussion with pharmacy, it was noted that his Januvia had a half-life of greater than 60 hours. His Amaryl has a half-life of greater than 40 hours. Patient stated he had been having hypoglycemia episodes during the week. We increased the concentration of his dextrose strip and were eventually able to ge t his sugars up to normal. Given the extended half-life of his medications in the presence of his chronic kidney disease stage IV we would recommend greatly reducing the dose or stopping these medications entirely. 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 His baseline FiO2 is 2 L/m. This did not need to be changed. During this hospital stay, the patient complained of severe left shoulder pain. He apparently had been complaining of this prior to admission. He had been placed on muscle relaxants by his PCP. We obtained x-rays and did not find any remarkable findings. There was some joint space narrowing. He did have elevated inflammatory indicators with a sedimentation rate of 273. We did start him on a short course of prednisone. As this will affect his blood sugars. We did put him back on a very low-dose of his prior Amaryl. The patient improved and did well with physical and occupational therapy and it was felt that he would be stable to be discharged to home. We would recommend home health services for vital signs and blood sugar monitoring.. DISCHARGE MEDICATIONS: Please see below. ALLERGIES: Please see below. PHYSICAL EXAMINATION ON DISCHARGE: VITAL SIGNS: Please see below. General: Alert, fully conversant ENT: Oral mucosa is moist, no scleral icterus or injection, neck is supple with no adenopathy or thyromegaly. Cardiovascular: Regular rate and rhythm with a normal S1 and S2, no appreciable murmur. Respiratory: Clear to auscultation with good air movement. Abdomen: Nontender, nondistended, soft, bowel tones present. Extremities: Pedal pulses are readily palpable, I do not consistently elicit pain to palpation of the left shoulder Neuro: No remarkable neuromotor or sensory deficits LABORATORY DATA: Please see below. IMAGING: Left shoulder three views : There is no fracture or dislocation. Mineralization and joint spaces are normal. There are no calcifications or foreign bodies. Impression: Negative left shoulder . Electronically Signed by Kuldeep Medina MD 12/16/2018 08:41 A PROGNOSIS: ACTIVITY: As tolerated. DIET: Consistent carbohydrate DISCHARGE PLAN: The patient is to be discharged to home. He will follow-up with his primary care provider, Dr. Ira hernandez in order to discuss medication changes. Again, we are recommending that the patient have home health services for vital signs, medication monitoring and blood sugar monitoring. DISPOSITION: Home Health Service. DISCHARGE CONDITION: Stable. TIME SPENT ON DISCHARGE: Greater than 40 minutes. Vital Signs/I&Os Vital Signs Date Time Temp Pulse Resp B/P (MAP) Pulse Ox O2 Delivery O2 Flow Rate FiO2 12/17/18 10:50 76 116/51 12/17/18 06:00 97.0 18 98 2.0 I&O- Last 24 Hours up to 6 AM 12/17/18 06:00 Intake Total 2540 ml Output Total 1550 ml Balance 990 ml Laboratory Data Labs 24H Laboratory Tests 2 12/16/18 20:44: Bedside Glucose (Misc Panel) 318H 12/17/18 06:22: Nucleated Red Blood Cells % (auto) 0.0, Anion Gap 6L, Glomerular Filtration Rate 40.1, Blood Urea Nitrogen 57H, Creatinine 1.74H, Sodium Level 143, Potassium Level 4.5, Chloride Level 112H, Carbon Dioxide Level 25, Calcium Level 9.1, Magnesium Level 2.2 12/17/18 11:28: Bedside Glucose (Misc Panel) 304H 12/17/18 12:38: Bedside Glucose (Misc Panel) 298H CBC/BMP Laboratory Tests 12/17/18 06:22 Red Blood Count 2.94 L, Mean Corpuscular Volume 93.9, Mean Corpuscular Hemoglobin 29.6, Mean Corpuscular Hemoglobin Concent 31.5 L, Red Cell Distribution Width 14.0, Calcium Level 9.1 FSBS Laboratory Tests Test 12/16/18 20:44 12/17/18 11:28 12/17/18 12:38 Range/Units Bedside Glucose (Misc Panel) 318 304 298 83-110 MG/DL Discharge Medications Scheduled Aspirin (Aspirin) 325 Mg Tab, 325 MG PO DAILY, (Reported) Atorvastatin Calcium (Atorvastatin Calcium) 40 Mg Tab, 40 MG PO QHS, (Reported) Calcitriol (Calcitriol) 0.25 Mcg Cap, 0.25 MCG PO DAILY, (Reported) Carvedilol (Carvedilol) 12.5 Mg Tablet, 12.5 MG PO BID Clopidogrel Bisulfate (Plavix) 75 Mg Tab, 75 MG PO DAILY, (Reported) Esomeprazole Magnesium (Nexium) 40 Mg Capsule.dr, 40 MG PO DAILY, (Reported) Ferrous Sulfate (Ferrous Sulfate) 325 Mg Tab, 325 MG PO DAILY, (Reported) Furosemide (Furosemide) 40 Mg Tablet, 20 MG PO BID Furosemide (Furosemide) 20 Mg Tablet, 20 MG PO BID@0900,1700 Gemfibrozil (Gemfibrozil) 600 Mg Tab, 600 MG PO BID, (Reported) Glimepiride (Glimepiride) 2 Mg Tablet, 2 MG PO DAILY Magnesium Oxide (Magnesium) 400 Mg Capsule, 400 MG PO DAILY, (Reported) Prednisone (Prednisone) 20 Mg Tablet, 20 MG PO DAILY Tiotropium [place] Monohydrate (Spiriva) 18 Mcg Cap.w.dev, 1 CAP INH DAILY, (Reported) Scheduled PRN Albuterol Sulfate (Proair Hfa) 108 Mcg/Act Aer, 2 PUFF INH Q4H PRN for SHORTNESS OF BREATH, (Reported) Calcium Carbonate (Calcium) 500 Mg Chw, 500 MG PO Q4H PRN for HEARTBURN, (Reported) Docusate Sodium (Colace) 100 Mg Cap, 100 MG PO BID PRN for CONSTIPATION, (Reported) Nitroglycerin (Nitrostat) 0.4 Mg Subl, 0.4 MG SL NITRO PRN for CHEST PAIN, (Reported) Simethicone (Simethicone) 180 Mg Capsule, 180 MG PO TID PRN for GAS PAIN, (Reported) Allergies Coded Allergies: Penicillins (Verified Allergy, Unknown, 12/02/18) Quinolones (Verified Adverse Reaction, Mild, N/V, 12/10/18) tetracycline (Verified Adverse Reaction, Mild, N/V, 12/10/18) BREANN HERRERA MD Dec 17, 2018 18:00
== END 2018-12-17 15:23 | disposition home health service (06) | DRG 638 ==
LOC: M ED 10:45 → EDBD 10:45 → UNDOADMOB 15:33 → M ED INP 15:33 → M ICU 15:33 → M ED INP 17:36 → OBSVTOIN 12-11 14:52 → INTOOBSV 12-11 14:52 → OBSVTOIN 12-12 15:55 → M MSPAV 12-14 15:27
PROVIDERS: ADMIT Internal Medicine; ATTEND Internal Medicine
DX: E11.649 Type 2 diabetes mellitus with hypoglycemia without coma (principal); I50.32 Chronic diastolic (congestive) heart failure; I13.0 Hypertensive heart and chronic kidney disease with heart failure and stage 1 through stage 4 chronic kidney disease, or unspecified chronic kidney disease; J96.10 Chronic respiratory failure, unspecified whether with hypoxia or hypercapnia; N18.4 Chronic kidney disease, stage 4 (severe); J44.9 Chronic obstructive pulmonary disease, unspecified; I25.10 Atherosclerotic heart disease of native coronary artery without angina pectoris; Z99.81 Dependence on supplemental oxygen; Z79.82 Long term (current) use of aspirin; Z79.899 Other long term (current) drug therapy; Z88.0 Allergy status to penicillin; Z88.8 Allergy status to other drugs, medicaments and biological substances; Z95.1 Presence of aortocoronary bypass graft; Z86.73 Personal history of transient ischemic attack (TIA), and cerebral infarction without residual deficits; Z87.891 Personal history of nicotine dependence

== ENCOUNTER 2018-12-18 02:09 | Emergency (ER) | payer MEDICARE, OTHER ==
[~2018-12-18] VITALS: Ht 172.7 cm; Wt 87.7 kg
[~2018-12-18 02:09] MED LIST changes: +CARV12.5 PO; +GLIM2TAB PO; +PRED20TA PO; +TIOT18INH INH
[2018-12-18] MEDS ORDERED: KETOROLAC 60 MG/2 ML VIAL (J1885) IM ONE (04:15)
[2018-12-18 04:25] VITALS: BP 168/69
== END 2018-12-18 04:38 | disposition home or self-care (01) ==
LOC: M ED 02:09
DX: S29.012A Strain of muscle and tendon of back wall of thorax, initial encounter (principal); X58.XXXA Exposure to other specified factors, initial encounter; Y92.89 Other specified places as the place of occurrence of the external cause; J44.9 Chronic obstructive pulmonary disease, unspecified; I11.0 Hypertensive heart disease with heart failure; I50.9 Heart failure, unspecified; K21.9 Gastro-esophageal reflux disease without esophagitis; Z86.73 Personal history of transient ischemic attack (TIA), and cerebral infarction without residual deficits; E11.9 Type 2 diabetes mellitus without complications; Z88.0 Allergy status to penicillin; Z88.1 Allergy status to other antibiotic agents; Z79.899 Other long term (current) drug therapy; Z79.82 Long term (current) use of aspirin; Z79.51 Long term (current) use of inhaled steroids; Z79.02 Long term (current) use of antithrombotics/antiplatelets
CPT/HCPCS: 96372; 99284; J1885

== ENCOUNTER 2018-12-23 07:05 | Inpatient (IN) | payer MEDICARE, OTHER ==
[~2018-12-23] VITALS: Ht 172.7 cm; Wt 88.8 kg
[2018-12-23] MEDS ORDERED: ACETAMINOPHEN 500 MG TAB PO ONE (07:30)
[2018-12-23] MEDS ORDERED: diazePAM 2 MG TAB PO ONE (07:30)
[2018-12-23 07:55] LABS: BASO % 0.3 % (0.0-1.0); EOS # 0.5 10^3/uL (0.0-0.50); HEMATOCRIT 32.7 % (42.0-52.0); HEMOGLOBIN 10.1 g/dl (13.5-17.5); LYMPH # 0.8 10^3/uL (1.5-4.5); LYMPH % 5.2 % (24.0-44.0); MEAN CORPUSCULAR HEMOGLOBIN 29.4 pg (27.0-33.0); MEAN CORPUSCULAR HGB CONC 30.9 g/dl (32.0-36.5); MEAN CORPUSCULAR VOLUME 95.1 fl (80.0-96.0); MONO % 6.3 % (0.0-5.0); NEUTROPHILS # 13.2 10^3/uL (1.8-7.7); NEUTROPHILS % 84.2 % (36.0-66.0); PLATELET COUNT, AUTOMATED 279 10^3/uL (150-450); RED BLOOD COUNT 3.44 10^6/uL (4.30-6.10); WHITE BLOOD COUNT 15.7 10^3/uL (4.0-10.0)
[2018-12-23] MEDS: TIOTROPIUM INHALER/CAPSULE (SPIRIVA) INH SCH (08:00)
[2018-12-23 08:13] LABS: INR 1.24; PROTHROMBIN TIME 15.3 SECONDS (11.8-14.0)
[2018-12-23 08:28] LABS: CALCIUM LEVEL 9.6 MG/DL (8.8-10.2); CREATININE FOR GFR 1.73 MG/DL (0.70-1.30); GLOMERULAR FILTRATION RATE 40.4 (>35); POTASSIUM SERUM 4.7 MEQ/L (3.5-5.1)
[2018-12-23 08:29] LABS: ALBUMIN 2.5 GM/DL (3.2-5.2); BILIRUBIN,DIRECT 0.3 MG/DL (0.0-0.2); BILIRUBIN,TOTAL 0.5 MG/DL (0.2-1.0); CK-MB VALUE MASS 1.8 NG/ML (<3.6); FREE T4 0.67 NG/DL (0.76-1.46); MB/CK RELATIVE INDEX 3.67 (< OR =4); THYROID STIMULATING HORMONE 1.78 uIU/ML (0.358-3.740); TOTAL PROTEIN 6.2 GM/DL (6.4-8.2); TROPONIN I 0.02 NG/ML (< 0.10)
[2018-12-23] MEDS ORDERED: CARV12.5 PO (11:03)
[2018-12-23] MEDS ORDERED: GLIM2TAB29 PO (11:03)
[2018-12-23] MEDS ORDERED: FURO20TA2 PO (11:03)
--- NOTE | 2018-12-23 11:24 | ECGEPIP ---
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
[2018-12-23] MEDS ORDERED: ALBUTEROL 90 MCG/ACT 8GM HFA INHALER INH PRN (11:45)
[2018-12-23] MEDS ORDERED: CALCIUM CARBONATE 500 MG CHEW U/D PO PRN (11:45)
[2018-12-23] MEDS ORDERED: GLUCOSE 4 GM CHEW TABLET PO PRN (11:45)
[2018-12-23] MEDS ORDERED: NITROGLYCERIN 0.4 MG SUBL TABLET SL PRN (11:45)
[2018-12-23] MEDS ORDERED: GLUCAGON FOR INJ 1 MG VIAL (J1610) SC PRN (11:45)
[2018-12-23] MEDS ORDERED: DOCUSATE SODIUM 100 MG CAP PO PRN (11:45)
[2018-12-23] MEDS ORDERED: DEXTROSE 50% 50 ML SYRINGE IV PRN (11:45)
[2018-12-23 12:27] LABS: C REACTIVE PROTEIN QUANTITATIV 6.87 MG/DL (0.00-0.30)
[2018-12-23] MEDS: FERROUS SULFATE 325MG TAB PO SCH (13:17)
[2018-12-23] MEDS: MAGNESIUM OXIDE 400 MG TAB (MAG-OX) PO SCH (13:17)
[2018-12-23] MEDS: PANTOPRAZOLE 40MG TAB (PROTONIX) PO SCH (13:17)
[2018-12-23] MEDS: HEPARIN SOD (PORCINE) 5000 UNITS/ML VIAL SC SCH ×2 (13:18→22:01)
[2018-12-23] MEDS: FUROSEMIDE 20 MG TAB PO SCH ×2 (13:22→17:40)
[2018-12-23 14:10] VITALS: BP 146/63
[2018-12-23] MEDS: HumaLOG INSULIN (NovoLOG) PER UNIT SC SCH ×3 (14:36→21:00)
[2018-12-23] MEDS: CARVedilol 12.5 MG TAB PO SCH ×2 (14:49→22:00)
[2018-12-23] MEDS: MEROPENEM INJ 1 GM in APPROPRIATE DILUENT 1 EA IV SCH (14:49)
[2018-12-23] MEDS: ACETAMINOPHEN TAB 650MG DOSE (2X325MG) PO PRN ×2 (14:49→22:00)
--- NOTE | 2018-12-23 15:01 | REP ---
Clinical: Pain. Technique: AP, lateral, swimmers views of the thoracic spine. Findings: Alignment and kyphosis maintained. No acute fracture / compression injury or subluxation. Moderate multilevel degenerative changes include bridging osteophytes with endplate sclerosis and minimal disc space narrowing. Impression: Moderate multilevel degenerative changes. Electronically Signed by Elian Davis MD 12/23/2018 08:33 A
--- NOTE | 2018-12-23 15:01 | REP ---
Clinical: Chest pain. Technique: PA and lateral. Comparison: 12/10/2018. Findings: Diffuse chronic interstitial changes are appreciated and subtle superimposed left lower lobe infiltrate is suggested. Clinical correlation is recommended. Mediastinum and cardiac silhouette are stable. Evidence of prior sternotomy and CABG. No effusion. No pneumothorax. Skeletal structures intact. Impression: Chronic changes. Superimposed left lower lobe atelectasis/infiltrate suggested. Electronically Signed by Elian Davis MD 12/23/2018 08:36 A
--- NOTE | 2018-12-23 15:02 | REP ---
Clinical: Chest pain. Pneumonia. Technique: Axial noncontrast images from the thoracic inlet to the upper abdomen with coronal and sagittal re-formations. Findings: There is a 3.7 cm cavitary lesion in the right base with fluid level along with bibasilar atelectasis and small left lower lobe consolidation. Trace pleural reactions are noted without significant effusion. No pneumothorax. Underlying chronic COPD/emphysematous changes and scattered fibrosis/scarring noted. Extensive atherosclerotic changes noted involving the thoracic aorta and coronary arteries with evidence for prior sternotomy and CABG. No pericardial effusion. Limited upper abdomen demonstrates normal bilateral adrenal glands and mild likely chronic perinephric stranding. Impression: 1. 3.7 cm cavitary lesion in the right base with fluid level undetectable by recent x-ray. Associated bibasilar atelectasis and small left lower lobe consolidation. No significant effusion. Electronically Signed by Elian Davis MD 12/23/2018 09:50 A
--- NOTE | 2018-12-23 15:02 | REP ---
Clinical: Evaluate for metastatic disease. Technique: Adult bone survey 13 images total through the axial and appendicular skeletal structures. Findings: Moderate to early advanced degenerative changes noted throughout the visualized cervical and lumbar spine. No evidence for lytic, blastic, or sclerotic osseous lesions to suggest malignancy or metastatic disease of the visualized skeletal structures. Impression: Degenerative changes to the cervical and lumbar spine. No evidence for osseous malignancy or metastatic disease. Electronically Signed by Elian Davis MD 12/23/2018 12:39 P
--- NOTE | 2018-12-23 15:42 | HPEPDOC ---
General Date of Admission Dec 23, 2018 at 11:39 Date of Service: Dec 23, 2018 Chief Complaint The patient is a 83-year-old male admitted with a reason for visit of Pneumonia. History of Present Illness 83-year-old male with past medical history of coronary artery disease status post CABG in 2005, PCI in 2011, Diabetes mellitus, Chronic kidney disease stage IV, CVA, COPD on 2 L home oxygen, and diastolic congestive heart failure who was recently admitted here from 12/10-12/17 for hypoglycemic event and functional deconditioning presented to the ER with a chief complaint of shortness of breath and weakness. The patient states that his symptoms started 2 days ago, and have progressively worsened. He states that he felt too weak to get up and walk around. At baseline, the patient reports that he is able to walk without any assistive devices. However, during this time the patient also notes having a decreased appetite and generalized fatigue. He does endorse that the decreased appetite has been evident for several weeks. He denies any weight loss. He denied any fevers, chills, chest pain, palpitations, abdominal pain, orthopnea, PND, or any nausea/vomiting/diarrhea. In the ER, a CT scan of the chest was notable for a 3.7 cm cavitary lesion at the right lung base. The patient will be admitted to the hospitalist service for further evaluation and management. Home Medications Scheduled Aspirin (Aspirin) 325 Mg Tab, 325 MG PO DAILY, (Reported) Atorvastatin Calcium (Atorvastatin Calcium) 40 Mg Tab, 40 MG PO QHS, (Reported) Calcitriol (Calcitriol) 0.25 Mcg Cap, 0.25 MCG PO DAILY, (Reported) Carvedilol (Carvedilol) 12.5 Mg Tablet, 12.5 MG PO BID, (Reported) Clopidogrel Bisulfate (Plavix) 75 Mg Tab, 75 MG PO DAILY, (Reported) Esomeprazole Magnesium (Nexium) 40 Mg Capsule.dr, 40 MG PO DAILY, (Reported) Ferrous Sulfate (Ferrous Sulfate) 325 Mg Tab, 325 MG PO DAILY, (Reported) Furosemide (Furosemide) 20 Mg Tablet, 20 MG PO BID, (Reported) Gemfibrozil (Gemfibrozil) 600 Mg Tab, 600 MG PO BID, (Reported) Glimepiride (Glimepiride) 2 Mg Tablet, 2 MG PO QPM, (Reported) Magnesium Oxide (Magnesium) 400 Mg Capsule, 400 MG PO DAILY, (Reported) Tiotropium [place] Monohydrate (Spiriva) 18 Mcg Cap.w.dev, 1 CAP INH DAILY, (Reported) Scheduled PRN Albuterol Sulfate (Proair Hfa) 108 Mcg/Act Aer, 2 PUFF INH Q4H PRN for SHORTNESS OF BREATH, (Reported) Calcium Carbonate (Calcium) 500 Mg Chw, 500 MG PO Q4H PRN for HEARTBURN, (Reported) Docusate Sodium (Colace) 100 Mg Cap, 100 MG PO BID PRN for CONSTIPATION, (Reported) Nitroglycerin (Nitrostat) 0.4 Mg Subl, 0.4 MG SL NITRO PRN for CHEST PAIN, (Reported) Simethicone (Simethicone) 180 Mg Capsule, 180 MG PO TID PRN for GAS PAIN, (Reported) Allergies Coded Allergies: Penicillins (Verified Allergy, Unknown, 12/02/18) Quinolones (Verified Adverse Reaction, Mild, N/V, 12/10/18) tetracycline (Verified Adverse Reaction, Mild, N/V, 12/10/18) Past Medical History Medical History As noted in HPI. Surgical History OPEN HEART SURGERY 2005 HEART STENTS 2011 UMBILICAL HERNIA 12/2012 UMBILICAL HRNIA 11/02/2013 Social History * Smoker: former Smoker (smoked 1 pack per day of tobacco for 30 years, quit in 1983) Alcohol: Denies Drugs: denies Lives at home with . Able to ambulate without any assistive devices. Review of Systems Other systems 10 point review of systems negative unless otherwise specified in HPI. Physical Examination General Exam: Positive: Alert, Cooperative, No Acute Distress ENT Exam: Positive: Atraumatic, Mucous membr. moist/pink Neck Exam: Negative: JVD Chest Exam: Positive: Diminished Heart Exam: Positive: Rate Normal, Normal S1, Normal S2 Abdomen Exam: Positive: Soft; Negative: Tenderness Extremity Exam: Negative: Tenderness, Swelling Psych Exam: Positive: Oriented x 3 Vital Signs Vital Signs Date Time Temp Pulse Resp B/P (MAP) Pulse Ox O2 Delivery O2 Flow Rate FiO2 12/23/18 14:49 83 146/63 12/23/18 14:10 97.2 22 91 12/23/18 13:55 Room Air Laboratory Data Labs 24H Laboratory Tests 2 12/23/18 07:41: Immature Granulocyte % (Auto) 1.0, White Blood Count 15.7H, Red Blood Count 3.44L, Hemoglobin 10.1L, Hematocrit 32.7L, Mean Corpuscular Volume 95.1, Mean C orpuscular Hemoglobin 29.4, Mean Corpuscular Hemoglobin Concent 30.9L, Red Cell Distribution Width 14.8H, Platelet Count 279, Neutrophils (%) (Auto) 84.2H, Lymphocytes (%) (Auto) 5.2L, Monocytes (%) (Auto) 6.3H, Eosinophils (%) (Auto) 3.0, Basophils (%) (Auto) 0.3, Neutrophils # (Auto) 13.2H, Lymphocytes # (Auto) 0.8L, Monocytes # (Auto) 1.0H, Eosinophils # (Auto) 0.5, Basophils # (Auto) 0.0, Nucleated Red Blood Cells % (auto) 0.0, Prothrombin Time 15.3H, Prothromb Time International Ratio 1.24, Anion Gap 9, Glomerular Filtration Rate 40.4, Calcium Level 9.6, Aspartate Amino Transf (AST/SGOT) 22, Alanine Aminotransferase (ALT/SGPT) 15, Alkaline Phosphatase 228H, Total Bilirubin 0.5, Direct Bilirubin 0.3H, Total Creatine Kinase 49, Creatine Kinase MB 1.8, Creatine Kinase MB Relative Index 3.67, Troponin I 0.02, C-Reactive Protein, Quantitative 6.87H, LG-Ihw-S-Type Natriuretic Peptide 4399H, Total Protein 6.2L, Albumin 2.5L, Albumin/Globulin Ratio 0.68L, Lipase 419H, Thyroid Stimulating Hormone (TSH) 1.780, Free Thyroxine 0.67L 12/23/18 09:47: Lactic Acid Level 1.0 12/23/18 09:49: POC pH (Misc Panel) 7.388, POC Base Excess (Misc Panel) -4.0L, POC Saturated Percent O2 (Misc) 92L, POC pO2 (Misc Panel) 65.0L, POC pCO2 (Misc Panel) 34.1L, POC HCO3 (Misc Panel) 20.5L, POC Total CO2 (Misc Panel) 22.0L 12/23/18 13:53: Bedside Glucose (Misc Panel) 163H CBC/BMP Laboratory Tests 12/23/18 07:41 Red Blood Count 3.44 L, Mean Corpuscular Volume 95.1, Mean Corpuscular Hemoglobin 29.4, Mean Corpuscular Hemoglobin Concent 30.9 L, Red Cell Distribution Width 14.8 H, Neutrophils (%) (Auto) 84.2 H, Lymphocytes (%) (Auto) 5.2 L, Monocytes (%) (Auto) 6.3 H, Eosinophils (%) (Auto) 3.0, Basophils (%) (Auto) 0.3, Neutrophils # (Auto) 13.2 H, Lymphocytes # (Auto) 0.8 L, Monocytes # (Auto) 1.0 H, Eosinophils # (Auto) 0.5, Basophils # (Auto) 0.0 Microbiology Microbiology 12/23/18 Blood Culture, Received Pending 12/23/18 Blood Culture, Received Pending Plan / VTE VTE Prophylaxis Ordered?: Yes Plan Plan SOB, Weakness 2/2 Right Sided Cavitary Lesion Possibly 2/2 Pneumonia versus Malignancy Sputum Culture, Procalcitonin level ordered--patient started on meropenem. I did discuss the case and review CT Imaging with our Financial Systems Administrator Dr. Grove this morning. There is concern that this may be malignant in nature, and the definitive diagnostic study would be an EBUS. Unfortunately the patient has been taking ASA 325mg and Plavix 75mg daily, and thus the patient will not be able to get the procedure done until these meds have been held for 7 days. At this time we will treat the patient with IV antibiotic therapy for possible underlying infection, and functionally optimize the patient. Upon discharge, we will have the patient follow-up for a PET/CT for further information. We will also reach out to the patient's Assistant To The Ceo's office (Dr. Pritchett) on Tuesday to ensure that the patient can undergo an EBUS study as an outpatient and that there are no concerning absolute contraindications from a cardiac perspective. The patient will need to follow up soon after discharge with Pulmonary after PET CT has been done, and 7 days have elapsed for an EBUS study. The aforementioned findings and plan were discussed at length with the patient and his at the bedside, who have verbalized understanding of the same. All questions were answered to their satisfaction. ?Lesion noted on Right Rib Bone Survey ordered to r/o Metastatic disease Debility PT ordered for functional optimization Diabetes Mellitus ISS ordered Chronic kidney disease stage III/IV Serum Cr at baseline CHF (diastolic dysfunction, EF 65%) The patient does not appear to be volume decompensated at this time Cont Lasix as ordered Coronary artery disease with coronary bypass grafting and PCI. Continue with Coreg, Atorvastatin Aspirin and Plavix held secondary to above; risks, benefits, and alternative options discussed at length regarding holding antiplatelet therapy. The patient and his have verbalized understanding of the same, and agree with the plan moving forward. Hx of CVA ASA, Plavix held 2/2 Above Cont Statin Hypertension Coreg COPD, stable Continue Current regimen Dyslipidemia Cont Statin, gemfibrozil DVT prophylaxis Heparin SC Code Status: DNR/DNI CONI CHAMBERS MD Dec 23, 2018 15:42
[2018-12-23 16:00] VITALS: BP 148/82
[2018-12-23] MEDS ORDERED: SLF 3 ML SYR IV PRN (16:15)
[2018-12-23] MEDS: GEMFIBROZIL 600 MG TAB PO SCH (17:40)
[2018-12-23 20:00] VITALS: BP 170/86
[2018-12-23] MEDS: ATORVASTATIN 20 MG TAB PO SCH (21:59)
[2018-12-23] MEDS: SLF 3 ML SYR IV SCH (22:02)
[2018-12-23 23:59] VITALS: BP 153/72
[2018-12-24] MEDS: MEROPENEM INJ 1 GM in APPROPRIATE DILUENT 1 EA IV SCH ×2 (00:11→12:18)
[2018-12-24 04:00] VITALS: BP 164/74
[2018-12-24] MEDS: SLF 3 ML SYR IV SCH ×3 (05:00→21:11)
[2018-12-24] MEDS: ACETAMINOPHEN TAB 650MG DOSE (2X325MG) PO PRN ×2 (05:00→12:20)
[2018-12-24 05:13] LABS: HEMATOCRIT 32.1 % (42.0-52.0); HEMOGLOBIN 9.8 g/dl (13.5-17.5); MEAN CORPUSCULAR HEMOGLOBIN 28.9 pg (27.0-33.0); MEAN CORPUSCULAR HGB CONC 30.5 g/dl (32.0-36.5); MEAN CORPUSCULAR VOLUME 94.7 fl (80.0-96.0); PLATELET COUNT, AUTOMATED 251 10^3/uL (150-450); RED BLOOD COUNT 3.39 10^6/uL (4.30-6.10); WHITE BLOOD COUNT 13.4 10^3/uL (4.0-10.0)
[2018-12-24 05:34] LABS: C REACTIVE PROTEIN QUANTITATIV 9.9 MG/DL (0.00-0.30); CALCIUM LEVEL 9.7 MG/DL (8.8-10.2); CREATININE FOR GFR 1.53 MG/DL (0.70-1.30); GLOMERULAR FILTRATION RATE 46.5 (>35); POTASSIUM SERUM 4.6 MEQ/L (3.5-5.1)
[2018-12-24] MEDS: TIOTROPIUM INHALER/CAPSULE (SPIRIVA) INH SCH (07:36)
[2018-12-24] MEDS: HumaLOG INSULIN (NovoLOG) PER UNIT SC SCH ×4 (07:43→21:10)
[2018-12-24] MEDS: GEMFIBROZIL 600 MG TAB PO SCH ×2 (07:43→16:57)
[2018-12-24 08:00] VITALS: BP 148/67
[2018-12-24] MEDS: PANTOPRAZOLE 40MG TAB (PROTONIX) PO SCH (09:06)
[2018-12-24] MEDS: MAGNESIUM OXIDE 400 MG TAB (MAG-OX) PO SCH (09:06)
[2018-12-24] MEDS: FUROSEMIDE 20 MG TAB PO SCH ×2 (09:07→16:57)
[2018-12-24] MEDS: FERROUS SULFATE 325MG TAB PO SCH (09:07)
[2018-12-24] MEDS: CARVedilol 12.5 MG TAB PO SCH ×2 (09:07→20:56)
[2018-12-24] MEDS: HEPARIN SOD (PORCINE) 5000 UNITS/ML VIAL SC SCH ×2 (09:07→20:55)
--- NOTE | 2018-12-24 11:10 | IPNPDOC ---
Subjective Date Seen The patient was seen on 12/24/18. Subjective Chief Complaint/HPI Patient seen and examined at the bedside. Reports that his respiratory status is slightly improved today. However, remains generally weak overall. Objective Physical Examination General Exam: Positive: Alert, Cooperative, No Acute Distress ENT Exam: Positive: Atraumatic, Mucous membr. moist/pink Neck Exam: Negative: JVD Chest Exam: Positive: Diminished Heart Exam: Positive: Rate Normal, Normal S1, Normal S2 Abdomen Exam: Positive: Soft; Negative: Tenderness Extremity Exam: Negative: Tenderness, Swelling Psych Exam: Positive: Oriented x 3 Assessment /Plan Plan/VTE VTE Prophylaxis Ordered?: Yes Plan SOB, Weakness 2/2 Right Sided Cavitary Lesion Possibly 2/2 Pneumonia versus Malignancy Sputum Culture, Procalcitonin level pending Continue on meropenem. Respiratory status improved Patient will need to f/u as outpatient for further malignancy work up as delineated previously. ?Lesion noted on Right Rib Bone Survey ordered to r/o Metastatic disease--negative Debility PT on board for functional optimization Diabetes Mellitus ISS ordered Chronic kidney disease stage III/IV Serum Cr at baseline CHF (diastolic dysfunction, EF 65%) The patient does not appear to be volume decompensated at this time Cont Lasix as ordered Coronary artery disease with coronary bypass grafting and PCI. Continue with Coreg, Atorvastatin Aspirin and Plavix held secondary to above; risks, benefits, and alternative options discussed at length regarding holding antiplatelet therapy. The patient and his have verbalized understanding of the same, and agree with the plan moving forward. Hx of CVA ASA, Plavix held 2/2 Above Cont Statin Hypertension Coreg COPD, stable Continue Current regimen Dyslipidemia Cont Statin, gemfibrozil DVT prophylaxis Heparin SC Code Status: DNR/DNI Disposition-pending clinical improvement, and functional optimization with physical therapy. VS, I&O, 24H, Fishbone Vital Signs/I&O Vital Signs Date Time Temp Pulse Resp B/P (MAP) Pulse Ox O2 Delivery O2 Flow Rate FiO2 12/24/18 09:07 67 148/67 12/24/18 08:00 98.3 20 100 12/23/18 13:55 Room Air I&O- Last 24 Hours up to 6 AM 12/24/18 06:00 Intake Total 770 ml Output Total 1025 ml Balance -255 ml Laboratory Data 24H LABS Laboratory Tests 2 12/23/18 11:39: 12/23/18 13:53: Bedside Glucose (Misc Panel) 163H 12/23/18 16:59: Bedside Glucose (Misc Panel) 260H 12/23/18 21:53: Bedside Glucose (Misc Panel) 143H 12/24/18 04:46: Nucleated Red Blood Cells % (auto) 0.0, Anion Gap 5L, Glomerular Filtration Rate 46.5, Blood Urea Nitrogen 53H, Creatinine 1.53H, Sodium Level 144, Potassium Level 4.6, Chloride Level 113H, Carbon Dioxide Level 26, Calcium Level 9.7, C-Reactive Protein, Quantitative 9.90H CBC/BMP Laboratory Tests 12/24/18 04:46 Red Blood Count 3.39 L, Mean Corpuscular Volume 94.7, Mean Corpuscular Hemoglobin 28.9, Mean Corpuscular Hemoglobin Concent 30.5 L, Red Cell Distribution Width 14.7 H, Calcium Level 9.7 Microbiology Microbiology 12/23/18 Blood Culture - Preliminary, Resulted No growth after 24 hours . All specim... 12/23/18 Blood Culture - Preliminary, Resulted No growth after 24 hours . All specim... CONI CHAMBERS MD Dec 24, 2018 11:10
[2018-12-24 12:00] VITALS: BP 153/76
[2018-12-24 16:00] VITALS: BP 143/78
[2018-12-24 20:00] VITALS: BP 168/73
[2018-12-24] MEDS: ATORVASTATIN 20 MG TAB PO SCH (20:55)
[2018-12-24 23:59] VITALS: BP_SYST 162; BP_SYST 181; BP_DIAS 80; BP_DIAS 82
[2018-12-25] MEDS: MEROPENEM INJ 1 GM in APPROPRIATE DILUENT 1 EA IV SCH ×3 (00:24→23:44)
[2018-12-25 04:00] VITALS: BP_SYST 155; BP_SYST 199; BP_DIAS 67; BP_DIAS 77
[2018-12-25] MEDS: SLF 3 ML SYR IV SCH ×3 (05:12→23:44)
[2018-12-25] MEDS: ACETAMINOPHEN TAB 650MG DOSE (2X325MG) PO PRN ×3 (05:13→20:20)
[2018-12-25 05:59] LABS: HEMATOCRIT 32.5 % (42.0-52.0); HEMOGLOBIN 9.8 g/dl (13.5-17.5); MEAN CORPUSCULAR HEMOGLOBIN 28.3 pg (27.0-33.0); MEAN CORPUSCULAR HGB CONC 30.2 g/dl (32.0-36.5); MEAN CORPUSCULAR VOLUME 93.9 fl (80.0-96.0); PLATELET COUNT, AUTOMATED 235 10^3/uL (150-450); RED BLOOD COUNT 3.46 10^6/uL (4.30-6.10); WHITE BLOOD COUNT 13.2 10^3/uL (4.0-10.0)
[2018-12-25 06:11] LABS: CALCIUM LEVEL 9.8 MG/DL (8.8-10.2); CREATININE FOR GFR 1.43 MG/DL (0.70-1.30); GLOMERULAR FILTRATION RATE 50.3 (>35); POTASSIUM SERUM 4.7 MEQ/L (3.5-5.1)
[2018-12-25 08:00] VITALS: BP 158/82
[2018-12-25] MEDS: HEPARIN SOD (PORCINE) 5000 UNITS/ML VIAL SC SCH ×2 (08:12→20:21)
[2018-12-25] MEDS: HumaLOG INSULIN (NovoLOG) PER UNIT SC SCH ×4 (08:12→20:26)
[2018-12-25] MEDS: MAGNESIUM OXIDE 400 MG TAB (MAG-OX) PO SCH (08:14)
[2018-12-25] MEDS: FERROUS SULFATE 325MG TAB PO SCH (08:14)
[2018-12-25] MEDS: PANTOPRAZOLE 40MG TAB (PROTONIX) PO SCH (08:14)
[2018-12-25] MEDS: GEMFIBROZIL 600 MG TAB PO SCH ×2 (08:14→17:24)
[2018-12-25] MEDS: FUROSEMIDE 20 MG TAB PO SCH ×2 (08:14→17:24)
[2018-12-25] MEDS: amLODIPine 10 MG TAB PO SCH (08:17)
[2018-12-25] MEDS: CARVedilol 12.5 MG TAB PO SCH ×2 (08:17→20:26)
[2018-12-25] MEDS: TIOTROPIUM INHALER/CAPSULE (SPIRIVA) INH SCH (08:20)
--- NOTE | 2018-12-25 10:59 | IPNPDOC ---
Subjective Date Seen The patient was seen on 12/25/18. Subjective Chief Complaint/HPI Patient seen and examined at the bedside. Reports that his respiratory status is improved. However, states that he does still feel generally weak, and that his appetite has been low. No acute overnight events noted. Objective Physical Examination General Exam: Positive: Alert, Cooperative, No Acute Distress ENT Exam: Positive: Atraumatic, Mucous membr. moist/pink Neck Exam: Negative: JVD Chest Exam: Positive: Diminished Heart Exam: Positive: Rate Normal, Normal S1, Normal S2 Abdomen Exam: Positive: Soft; Negative: Tenderness Extremity Exam: Negative: Tenderness, Swelling Psych Exam: Positive: Oriented x 3 Assessment /Plan Plan/VTE VTE Prophylaxis Ordered?: Yes Plan SOB, Weakness 2/2 Right Sided Cavitary Lesion Possibly 2/2 Pneumonia versus Malignancy Continue on meropenem. Respiratory status somewhat improved, however the patient remains weak with a low appetite I discussed the case via telephone with Dr. Pritchett of cardiology this morning regarding the patient's candidacy for an EBUS--he stated that he has no objections for this procedure but notes that the patient is not a candidate for any kind of surgical intervention given his history of Diastolic CHF, and Right Sided Heart failure. He also agrees with decreasing ASA dose to 81mg, and holding Plavix until the patient has an EBUS done. Of note, the patient did have coronary revascularization in March 2017, at which time he had a Stent placed in the RCA and diagonal branch of LAD. Despite this, cardiology is OK with the aforementioned plan as the patient has not had any complaints of chest pain, or changes in cardiac rhythm since. I have also spoken to the patient's PCP, Dr. Jimenez, and updated him about the findings here during hospitalization, and the need for the patient to follow up with a PET CT Scan prior to follow up with Pulmonary for an EBUS. Dr. Grove made aware of Cardiac risk factor, holding plavix/reducing ASA dose. She will arrange to see the patient after PET CT Scan as an outpatient for further work up. ?Lesion noted on Right Rib Bone Survey ordered to r/o Metastatic disease--negative Debility PT on board for functional optimization Diabetes Mellitus ISS ordered Chronic kidney disease stage III/IV Serum Cr at baseline CHF (diastolic dysfunction, EF 65%) The patient does not appear to be volume decompensated at this time Cont Lasix as ordered Coronary artery disease with coronary bypass grafting and PCI. Continue with Coreg, Atorvastatin Aspirin dose decreased to 81 mg and Plavix held secondary to above; risks, benefits, and alternative options discussed at length regarding reducing dose/holding antiplatelet therapy. The patient and his have verbalized understanding of the same, and agree with the plan moving forward. 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 I discussed this at length with the patient and his daughter at the bedside. All questions were answered to their satisfaction, and they verbalized understanding of the same. Disposition-pending clinical improvement, and functional optimization with physical therapy. Patient will need to follow up as an outpatient for further malignancy workup. VS, I&O, 24H, Fishbone Vital Signs/I&O Vital Signs Date Time Temp Pulse Resp B/P (MAP) Pulse Ox O2 Delivery O2 Flow Rate FiO2 12/25/18 08:17 158/82 12/25/18 08:00 96.9 74 23 92 12/25/18 08:00 2.0 12/23/18 13:55 Room Air I&O- Last 24 Hours up to 6 AM 12/25/18 05:59 Intake Total 940 ml Output Total 1200 ml Balance -260 ml Laboratory Data 24H LABS Laboratory Tests 2 12/24/18 11:51: Bedside Glucose (Misc Panel) 194H 12/24/18 16:38: Bedside Glucose (Misc Panel) 156H 12/24/18 20:52: Bedside Glucose (Misc Panel) 261H 12/25/18 05:27: Nucleated Red Blood Cells % (auto) 0.0, Anion Gap 7L, Glomerular Filtration Rate 50.3, Blood Urea Nitrogen 53H, Creatinine 1.43H, Sodium Level 142, Potassium Level 4.7, Chloride Level 112H, Carbon Dioxide Level 23, Calcium Level 9.8 CBC/BMP Laboratory Tests 12/25/18 05:27 Red Blood Count 3.46 L, Mean Corpuscular Volume 93.9, Mean Corpuscular Hemoglobin 28.3, Mean Corpuscular Hemoglobin Concent 30.2 L, Red Cell Distribution Width 14.7 H, Calcium Level 9.8 Microbiology Microbiology 12/23/18 Blood Culture - Preliminary, Resulted No Growth after 48 hours. All Specime... 12/23/18 Blood Culture - Preliminary, Resulted No Growth after 48 hours. All Specime... CONI CHAMBERS MD Dec 25, 2018 10:59
[2018-12-25 12:00] VITALS: BP 118/57
[2018-12-25] MEDS: ASPIRIN 81 MG ENTERIC TAB PO SCH (12:14)
[2018-12-25 16:00] VITALS: BP 146/66
[2018-12-25 20:00] VITALS: BP 151/69
[2018-12-25] MEDS: ATORVASTATIN 20 MG TAB PO SCH (20:21)
[2018-12-26] VITALS: BP 136/65
[2018-12-26 04:00] VITALS: BP 146/70
[2018-12-26] MEDS: SLF 3 ML SYR IV SCH ×3 (05:14→21:55)
[2018-12-26 05:34] LABS: HEMATOCRIT 31.3 % (42.0-52.0); HEMOGLOBIN 9.5 g/dl (13.5-17.5); MEAN CORPUSCULAR HEMOGLOBIN 28.9 pg (27.0-33.0); MEAN CORPUSCULAR HGB CONC 30.4 g/dl (32.0-36.5); MEAN CORPUSCULAR VOLUME 95.1 fl (80.0-96.0); PLATELET COUNT, AUTOMATED 234 10^3/uL (150-450); RED BLOOD COUNT 3.29 10^6/uL (4.30-6.10); WHITE BLOOD COUNT 11.4 10^3/uL (4.0-10.0)
[2018-12-26 06:02] LABS: CALCIUM LEVEL 9.9 MG/DL (8.8-10.2); CREATININE FOR GFR 1.59 MG/DL (0.70-1.30); GLOMERULAR FILTRATION RATE 44.5 (>35); POTASSIUM SERUM 4.8 MEQ/L (3.5-5.1)
[2018-12-26 08:00] VITALS: BP 166/68
[2018-12-26] MEDS: HumaLOG INSULIN (NovoLOG) PER UNIT SC SCH ×4 (08:13→21:00)
[2018-12-26] MEDS: HEPARIN SOD (PORCINE) 5000 UNITS/ML VIAL SC SCH ×2 (08:14→21:54)
[2018-12-26] MEDS: amLODIPine 10 MG TAB PO SCH (08:14)
[2018-12-26] MEDS: MAGNESIUM OXIDE 400 MG TAB (MAG-OX) PO SCH (08:14)
[2018-12-26] MEDS: PANTOPRAZOLE 40MG TAB (PROTONIX) PO SCH (08:14)
[2018-12-26] MEDS: CARVedilol 12.5 MG TAB PO SCH ×2 (08:14→21:54)
[2018-12-26] MEDS: GEMFIBROZIL 600 MG TAB PO SCH ×2 (08:15→17:21)
[2018-12-26] MEDS: FERROUS SULFATE 325MG TAB PO SCH (08:15)
[2018-12-26] MEDS: ASPIRIN 81 MG ENTERIC TAB PO SCH (08:15)
[2018-12-26] MEDS: FUROSEMIDE 20 MG TAB PO SCH ×2 (08:15→17:21)
[2018-12-26] MEDS: TIOTROPIUM INHALER/CAPSULE (SPIRIVA) INH SCH (08:33)
[2018-12-26] MEDS: ACETAMINOPHEN TAB 650MG DOSE (2X325MG) PO PRN (09:58)
[2018-12-26 12:00] VITALS: BP 136/68
[2018-12-26] MEDS: MEROPENEM INJ 1 GM in APPROPRIATE DILUENT 1 EA IV SCH ×2 (12:01→23:04)
--- NOTE | 2018-12-26 14:44 | IPNPDOC ---
Text Note Date of Service The patient was seen on 12/26/18. NOTE Subjective: Patient was seen and examined at the bedside. Currently patient still reports experiencing pain in his shoulders. He denies any chest pain or palpitations. Patient still reports some shortness of breath with a mild cough. Denies nausea, vomiting, abdominal pain, constipation, diarrhea or urinary. Objective: Vitals (See below) General: Lying in bed, no acute distress, comfortable, AAOx3 HEENT: NC, AT CVS: +S1S2 Lungs: Fair air entry b/l, -w/r/r Abdomen: Soft, ND, NT Extremities: - Edema, - Calf tenderness Assessment and plan: SOB, Weakness 2/2 Right Sided Cavitary Lesion - possibly 2/2 Pneumonia, possibly 2/2 Malignancy - Clinically remains relatively unchanged; as reported some improvement in breathing; still experiences severe weakness - Patient's dose of aspirin and Plavix were adjusted for preparation for EBUS - Plan was also discussed with Dr. Grove as well as primary care provider, Dr. Jimenez; patient is been advised to get a PET scan completed as an outpatient prior to follow-up with pulmonary - c/w Meropenem (Day #4) ?Lesion noted on Right Rib - Bone scan 12/23: Degenerative changes to the cervical and lumbar spine. No evidence for osseous malignancy or metastatic disease. Debility - PT on board for functional optimization; anticipate clearance within next 24- 48 hours Diabetes Mellitus - ISS ordered Chronic kidney disease stage III/IV - Serum Cr at baseline CHF (Diastolic dysfunction, EF 65%) - Appears euvolemic - c/w Furosemide Coronary artery disease with coronary bypass grafting and PCI - Coronary revascularization in March 2017, at which time he had a Stent placed in the RCA and diagonal branch of LAD - Continue with Coreg, Atorvastatin - Aspirin dose decreased to 81 mg and Plavix held secondary to above; - Risks / benefits / alternative options discussed at length regarding reducing dose/holding antiplatelet therapy - The patient and his have verbalized understanding of the same, and agree with the plan moving forward Hx of CVA - ASA 81mg, Plavix held 2/2 Above - Cont Statin Hypertension - BP well controlled - c/w Coreg COPD, stable - no evidence of exacerbation - c/w inhaled therapy as ordered Dyslipidemia - Cont Statin, gemfibrozil GI prophylaxis - c/w DVT prophylaxis - c/w Heparin Code Status: - DNR/DNI Prognosis: Poor Chcf Prognosis if this lesion is indeed malignant in nature - Patient and daughter aware of the possibility of malignancy Disposition: - Pending clinical improvement, and functional optimization with physical therapy - Patient will need to follow up as an outpatient for further malignancy workup VS,Lexie, I+O VS, [place], I+O Laboratory Tests 12/26/18 05:23 Red Blood Count 3.29 L, Mean Corpuscular Volume 95.1, Mean Corpuscular Hemoglobin 28.9, Mean Corpuscular Hemoglobin Concent 30.4 L, Red Cell Distribution Width 14.6 H, Calcium Level 9.9 Vital Signs Date Time Temp Pulse Resp B/P (MAP) Pulse Ox O2 Delivery O2 Flow Rate FiO2 12/26/18 12:00 97.7 58 19 136/68 (90) 98 2.0 12/23/18 13:55 Room Air I&O- Last 24 Hours up to 6 AM 12/26/18 06:00 Intake Total 580 ml Output Total 1150 ml Balance -570 ml RAMÍREZ HAMLIN MD Dec 26, 2018 14:44
[2018-12-26] MEDS: PERCOCET 5MG/325MG TAB PO PRN ×2 (16:27→23:04)
[2018-12-26 20:00] VITALS: BP 126/64
[2018-12-26] MEDS: ATORVASTATIN 20 MG TAB PO SCH (21:54)
[2018-12-26 23:59] VITALS: BP 146/67
[2018-12-27 02:30] VITALS: BP 152/82
[2018-12-27 05:45] LABS: HEMATOCRIT 29.5 % (42.0-52.0); MEAN CORPUSCULAR HEMOGLOBIN 28.6 pg (27.0-33.0); MEAN CORPUSCULAR HGB CONC 30.5 g/dl (32.0-36.5); MEAN CORPUSCULAR VOLUME 93.7 fl (80.0-96.0); PLATELET COUNT, AUTOMATED 231 10^3/uL (150-450); RED BLOOD COUNT 3.15 10^6/uL (4.30-6.10); WHITE BLOOD COUNT 11.3 10^3/uL (4.0-10.0)
[2018-12-27 06:06] LABS: CALCIUM LEVEL 9.7 MG/DL (8.8-10.2); CREATININE FOR GFR 1.81 MG/DL (0.70-1.30); GLOMERULAR FILTRATION RATE 38.3 (>35)
[2018-12-27] MEDS: SLF 3 ML SYR IV SCH ×3 (06:30→22:21)
[2018-12-27] MEDS: PERCOCET 5MG/325MG TAB PO PRN (06:30)
[2018-12-27 08:00] VITALS: BP 147/67
[2018-12-27] MEDS: HumaLOG INSULIN (NovoLOG) PER UNIT SC SCH ×4 (08:00→21:00)
[2018-12-27] MEDS: HEPARIN SOD (PORCINE) 5000 UNITS/ML VIAL SC SCH ×2 (08:00→22:20)
[2018-12-27] MEDS: GEMFIBROZIL 600 MG TAB PO SCH ×2 (08:01→17:14)
[2018-12-27] MEDS: PANTOPRAZOLE 40MG TAB (PROTONIX) PO SCH (08:01)
[2018-12-27] MEDS: MAGNESIUM OXIDE 400 MG TAB (MAG-OX) PO SCH (08:01)
[2018-12-27] MEDS: amLODIPine 10 MG TAB PO SCH (08:01)
[2018-12-27] MEDS: FERROUS SULFATE 325MG TAB PO SCH (08:01)
[2018-12-27] MEDS: ASPIRIN 81 MG ENTERIC TAB PO SCH (08:02)
[2018-12-27] MEDS: FUROSEMIDE 20 MG TAB PO SCH ×2 (08:02→17:14)
[2018-12-27] MEDS: CARVedilol 12.5 MG TAB PO SCH ×2 (08:02→22:21)
[2018-12-27] MEDS: TIOTROPIUM INHALER/CAPSULE (SPIRIVA) INH SCH (11:42)
[2018-12-27 12:00] VITALS: BP 155/78
[2018-12-27] MEDS: MEROPENEM INJ 1 GM in APPROPRIATE DILUENT 1 EA IV SCH ×2 (12:02→23:39)
[2018-12-27] MEDS: ACETAMINOPHEN TAB 650MG DOSE (2X325MG) PO PRN ×2 (12:04→15:39)
--- NOTE | 2018-12-27 13:51 | IPNPDOC ---
Text Note Date of Service The patient was seen on 12/27/18. NOTE Subjective: Patient was seen and examined at the bedside. Patient appears to be very weak this morning. He denies any chest pain but does report shoulder pain. Denies any nausea, vomiting, abdominal pain, constipation or diarrhea. Objective: Vitals (See below) General: Lying in bed, no acute distress, comfortable, AAOx3 HEENT: NC, AT CVS: +S1S2 Lungs: Fair air entry b/l, no appreciable wheezing, rhonchi or rales Abdomen: Soft, nondistended, without tenderness Extremities: No evidence of lower extremity edema, - Calf tenderness Assessment and plan: SOB, Weakness 2/2 Right Sided Cavitary Lesion - possibly 2/2 Pneumonia, possibly 2/2 Malignancy - Clinically remains relatively unchanged; as reported some improvement in breathing; still experiences severe weakness - Patient's dose of aspirin and Plavix were adjusted for preparation for EBUS - Plan was also discussed with Dr. Grove as well as primary care provider, Dr. Jimenez; patient is been advised to get a PET scan completed as an outpatient prior to follow-up with pulmonary - Discuss with pulmonary this afternoon; plan for possible inpatient bronchoscopy if patient remains an inpatient status - c/w Meropenem (Day #5) ?Lesion noted on Right Rib - Bone scan 12/23: Degenerative changes to the cervical and lumbar spine. No evidence for osseous malignancy or metastatic disease. Weakness / Debility - etiology unclear - possibly 2/2 above - PT on board for functional optimization - Occupational therapy has also been ordered - Patient has been very slow to progress Diabetes Mellitus - ISS ordered Chronic kidney disease stage III/IV - Serum Cr at baseline CHF (Diastolic dysfunction, EF 65%) - Appears euvolemic - c/w Furosemide Coronary artery disease with coronary bypass grafting and PCI - Coronary revascularization in March 2017, at which time he had a Stent placed in the RCA and diagonal branch of LAD - Continue with Coreg, Atorvastatin - Aspirin dose decreased to 81 mg and Plavix held secondary to above; - Risks / benefits / alternative options discussed at length regarding reducing dose/holding antiplatelet therapy - The patient and his have verbalized understanding of the same, and agree with the plan moving forward Hx of CVA - ASA 81mg, Plavix held 2/2 Above - Cont Statin Hypertension - BP well controlled - c/w Coreg COPD, stable - no evidence of exacerbation - c/w inhaled therapy as ordered Dyslipidemia - Cont Statin, gemfibrozil DVT prophylaxis - c/w Heparin Code Status: - DNR/DNI Prognosis: - 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 Prognosis if this lesion is indeed malignant in nature - Patient and daughter aware of the possibility of malignancy - Will need tissue diagnosis to confirm Disposition: - Pending clinical improvement, and functional optimization with physical therapy - Patient will need to complete further malignancy workup VS,Lexie, I+O VS, [place], I+O Laboratory Tests 12/27/18 05:29 Red Blood Count 3.15 L, Mean Corpuscular Volume 93.7, Mean Corpuscular Hemogl obin 28.6, Mean Corpuscular Hemoglobin Concent 30.5 L, Red Cell Distribution Width 14.7 H, Calcium Level 9.7 Vital Signs Date Time Temp Pulse Resp B/P (MAP) Pulse Ox O2 Delivery O2 Flow Rate FiO2 12/27/18 12:00 97.7 76 22 155/78 (103) 89 2.0 12/23/18 13:55 Room Air I&O- Last 24 Hours up to 6 AM 12/27/18 06:00 Intake Total 460 ml Output Total 600 ml Balance -140 ml RAMÍREZ HAMLIN MD Dec 27, 2018 13:51
[2018-12-27 16:00] VITALS: BP 138/72
[2018-12-27 20:00] VITALS: BP 158/72
[2018-12-27] MEDS: ATORVASTATIN 20 MG TAB PO SCH (22:20)
[2018-12-27 23:59] VITALS: BP 149/63
[2018-12-28] MEDS: ACETAMINOPHEN TAB 650MG DOSE (2X325MG) PO PRN (02:10)
[2018-12-28 03:15] VITALS: BP 124/60
[2018-12-28 06:09] LABS: HEMATOCRIT 28.6 % (42.0-52.0); HEMOGLOBIN 8.6 g/dl (13.5-17.5); MEAN CORPUSCULAR HEMOGLOBIN 27.9 pg (27.0-33.0); MEAN CORPUSCULAR HGB CONC 30.1 g/dl (32.0-36.5); MEAN CORPUSCULAR VOLUME 92.9 fl (80.0-96.0); PLATELET COUNT, AUTOMATED 227 10^3/uL (150-450); RED BLOOD COUNT 3.08 10^6/uL (4.30-6.10); WHITE BLOOD COUNT 10.7 10^3/uL (4.0-10.0)
[2018-12-28] MEDS: SLF 3 ML SYR IV SCH ×3 (06:28→20:56)
[2018-12-28 06:34] LABS: C REACTIVE PROTEIN QUANTITATIV 12.4 MG/DL (0.00-0.30); CALCIUM LEVEL 8.7 MG/DL (8.8-10.2); CREATININE FOR GFR 1.67 MG/DL (0.70-1.30); POTASSIUM SERUM 5.2 MEQ/L (3.5-5.1)
[2018-12-28] MEDS ORDERED: NS 1,000 ML IV SCH (07:15)
[2018-12-28] MEDS: HumaLOG INSULIN (NovoLOG) PER UNIT SC SCH ×4 (07:30→20:56)
[2018-12-28] MEDS: TIOTROPIUM INHALER/CAPSULE (SPIRIVA) INH SCH (07:39)
[2018-12-28 08:00] VITALS: BP 127/66
[2018-12-28] MEDS: amLODIPine 10 MG TAB PO SCH (08:07)
[2018-12-28] MEDS: GEMFIBROZIL 600 MG TAB PO SCH ×2 (08:07→17:01)
[2018-12-28] MEDS: HEPARIN SOD (PORCINE) 5000 UNITS/ML VIAL SC SCH ×2 (08:07→20:55)
[2018-12-28] MEDS: MAGNESIUM OXIDE 400 MG TAB (MAG-OX) PO SCH (08:07)
[2018-12-28] MEDS: PANTOPRAZOLE 40MG TAB (PROTONIX) PO SCH (08:07)
[2018-12-28] MEDS: FERROUS SULFATE 325MG TAB PO SCH (08:07)
[2018-12-28] MEDS: ASPIRIN 81 MG ENTERIC TAB PO SCH (08:07)
[2018-12-28] MEDS: FUROSEMIDE 20 MG TAB PO SCH (08:08)
[2018-12-28] MEDS: CARVedilol 12.5 MG TAB PO SCH ×2 (08:08→21:00)
--- NOTE | 2018-12-28 11:00 | IPNPDOC ---
Text Note Date of Service The patient was seen on 12/28/18. NOTE Subjective: Patient was seen and examined at the bedside. Patient reports that he feels relatively unchanged. Still reports pain in his left shoulder. . She was asking about getting joint injections to help alleviate the pain, however, I advised him that given his ongoing infection that orthopedic surgery/pain management would be unwilling to do joint injections at this time. Patient denies any nausea, vomiting, abdominal pain, constipation or diarrhea. Objective: Vitals (See below) General: Lying in bed, no acute distress, comfortable, AAOx3 HEENT: NC, AT CVS: +S1S2 Lungs: Fair air entry b/l, auscultation does not reveal any rhonchi, rales or wheezing Abdomen: Remains soft and is not distended or tender Extremities: Lower extremities are free of any pitting edema, - Calf tenderness Assessment and plan: SOB, Weakness 2/2 Right Sided Cavitary Lesion - possibly 2/2 Pneumonia, possibly 2/2 Malignancy - Clinically remains relatively unchanged; as reported some improvement in breathing; still experiences severe weakness - Patient received hemodynamically stable and afebrile - Psychosis, has shown some level of improvement. However CRP has mildly trended up - Patient's dose of aspirin and Plavix were adjusted for preparation for EBUS - Original plan was to get a PET scan completed as an outpatient, followed by EBUS; however will likely proceed with bronchoscopy as inpatient - Pulmonary will discuss with patient today about bronchoscopy that will be performed on Tuesday01/01/2019 - c/w Meropenem (Day #6) ?Lesion noted on Right Rib - Bone scan 12/23: Degenerative changes to the cervical and lumbar spine. No evidence for osseous malignancy or metastatic disease. Weakness / Debility - etiology unclear - possibly 2/2 above - PT on board for functional optimization - Occupational therapy has also been ordered - Patient has been very slow to progress Diabetes Mellitus - c/w ISS Chronic kidney disease stage III/IV - Serum Cr at baseline CHF (Diastolic dysfunction, EF 65%) - Appears euvolemic - Will hold Furosemide Coronary artery disease with coronary bypass grafting and PCI - Coronary revascularization in March 2017, at which time he had a Stent placed in the RCA and diagonal branch of LAD - Continue with Coreg, Atorvastatin - Aspirin dose decreased to 81 mg and Plavix held secondary to above; - Risks / benefits / alternative options discussed at length regarding reducing dose/holding antiplatelet therapy - The patient and his have verbalized understanding of the same, and agree with the plan moving forward Hx of CVA - ASA 81mg, Plavix held 2/2 Above - Cont Statin Hypertension - BP well controlled - c/w Coreg COPD, stable - no evidence of exacerbation - c/w inhaled therapy as ordered Dyslipidemia - Cont Statin, gemfibrozil DVT prophylaxis - c/w Heparin Code Status: - DNR/DNI Prognosis: - Poor [employer] Prognosis if this lesion is indeed malignant in nature - Patient and daughter aware of the possibility of malignancy - Will need tissue diagnosis to confirm Disposition: - Pending clinical improvement, and functional optimization with physical therapy - Patient will need to complete further malignancy workup VS,Lexie, I+O VS, Lexie, I+O Laboratory Tests 12/28/18 05:50 Red Blood Count 3.08 L, Mean Corpuscular Volume 92.9, Mean Corpuscular Hemoglobin 27.9, Mean Corpuscular Hemoglobin Concent 30.1 L, Red Cell Di stribution Width 14.7 H, Calcium Level 8.7 L Vital Signs Date Time Temp Pulse Resp B/P (MAP) Pulse Ox O2 Delivery O2 Flow Rate FiO2 12/28/18 08:07 106 132/60 12/28/18 08:00 97.1 18 92 12/28/18 03:15 2.0 12/23/18 13:55 Room Air I&O- Last 24 Hours up to 6 AM 12/28/18 06:00 Intake Total 640 ml Output Total 1375 ml Balance -735 ml RAMÍREZ HAMLIN MD Dec 28, 2018 11:00
[2018-12-28] MEDS: MEROPENEM INJ 1 GM in APPROPRIATE DILUENT 1 EA IV SCH (11:44)
[2018-12-28 12:00] VITALS: BP 132/69
--- NOTE | 2018-12-28 13:59 | CR ---
PULMONARY CONSULT NOTE DATE: 12/28/2018 HISTORY OF PRESENT ILLNESS: Mr. Bliss is an 83-year-old male with a past medical history of CAD, status post coronary artery bypass graft (CABG) and percutaneous coronary intervention (PCI), diabetes, chronic kidney disease (CKD), CVA, chronic obstructive pulmonary artery disease (COPD) with chronic hypoxemic respiratory failure on 2 liters nasal cannula oxygen, history of congestive heart failure (CHF) who was recently admitted in November for hypoglycemia and deconditioning. He presented again with complaints of shortness of breath and weakness. The patient had reported progressively worsening weakness with inability to get up and walk around. At baseline he is usually able to walk without any assisted devices. He also reports a decreased appetite and generalized fatigue. He has had significant weight loss of approximately 10-12 pounds in the past month or two. He denied any fevers or chills. He was not having any chest pain or palpitations. He does report a history of cough for the past few weeks which has been productive of occasional bloody sputum. The patient was noting small amounts of clots mixed in with his sputum for the past few weeks which he does feel has been worsening. Since his admission the patient was started on broad-spectrum antibiotics. He continues to report significant weakness, however, which has not improved. PAST MEDICAL HISTORY: CAD status post CABG. Diabetes. CKD. CVA. COPD. Chronic hypoxemic respiratory failure on nasal cannula oxygen. Diastolic CHF. PAST SURGICAL HISTORY: CABG 2005, coronary stents in 2011, umbilical hernia repair 2012 and 2013. HOME MEDICATIONS: - aspirin 325 mg - atorvastatin - calcitriol - carvedilol - Plavix 75 mg daily - Nexium - ferrous sulfate - furosemide 20 mg twice a day - gemfibrozil - glimepiride - magnesium oxide - Spiriva - as needed albuterol, calcium carbonate, Colace, nitroglycerin and simethicone ALLERGIES: PENICILLIN, QUINOLONES and TETRACYCLINE. SOCIAL HISTORY: Former smoker of one pack a day for at least 35 years, quit in 1983. Denies a history of alcohol use or other drug use. FAMILY HISTORY: No family history of any cancers or lung disease as per the patient. PHYSICAL EXAM: Temperature 97.1, pulse 72, respirations 18, blood pressure 127/66, O2 sat 92% on room air. Ins 640 mL, outs 1 liter net negative 435 mL General: The patient is an elderly male, is lying in bed, appears to have generalized weakness, is alert and oriented times three. He does not appear to be any acute respiratory distress, is able to speak in complete sentences. HEENT: Normocephalic, atraumatic. Pupils are reactive to light. Mucous membranes are moist. Neck is supple. Trachea is midline. No palpable adenopathy. Cardiovascular: Regular rate and rhythm. Normal S1-S2. Unable to appreciate any murmurs. Pulmonary: There is some coarse inspiratory wheeze on the right and some faint expiratory wheezing and crackles at the bases. Abdomen: Is soft, nontender, non-distended. Positive bowel sounds. Extremities: No lower extremity edema noted bilaterally. LABS: WBC 10.7, hemoglobin 8.6, platelets 227. Chemistry - sodium 144, potassium 5.2, chloride 109, bicarb 26, BUN 61, creatinine 1.67, glucose 65. CRP 12.4. Procalcitonin on admission was 0.22. MICROBIOLOGY BLOOD CULTURES: No growth to date. Sputum culture showed normal raul and few yeast like organisms. IMAGING: CT chest on 12/23/2018 showed emphysematous changes with paraseptal emphysema mostly in the periphery with some scattered areas of fibrosis and scarring. There is atelectasis in the left base with some areas of pleural thickening and fibroatelectatic change. On the right side there is a rounded mass in the right lower lobe measuring 3.7 cm which is cavitary with an air-fluid level. There is also some atelectasis associated with it. There is a very significantly enlarged right paratracheal lymph node and some suspicion of enlarged lymph nodes in the right hilar region although difficult to access on a noncontrast CT. There is also what appears to be a sclerotic bony lesion in the ribs on the right side. There is also coronary artery calcifications noted. ASSESSMENT AND PLAN: Mr. Bliss is an 83-year-old male with a past medical history of CAD status post CABG, hypertension, diabetes, CVA, COPD with chronic hypoxemic respiratory failure on nasal cannula oxygen supplementation, who presented with complaints of shortness of breath and worsening fatigue and generalized weakness. The patient had a CT chest done on this admission which showed a new cavitary mass in his right lower lobe region. There was also significant right paratracheal adenopathy as well as suspicion of right hilar adenopathy and what appears to be a sclerotic bone lesion in the right rib. The patient did have some leukocytosis on admission, although he has been afebrile. His CRP was elevated, but his procalcitonin was only mildly elevated. He was started on broad-spectrum antibiotics for concern of a cavitary pneumonia, lung abscess. The patient symptomatically continues to report the same generalized weakness and no improvement. Possible differentials include infectious etiology such as a cavitating pneumonia or lung abscess. Also possible would be fungal organisms, however, the patient does not appear to be chronically immunosuppressed but this is possibly in the differential. Given his smoking history and the adenopathy malignancy is high in the differential as well as given the possible bony sclerotic lesion which may represent a metastatic focus. The patient's generalized weakness may also be secondary to a possible paraneoplastic syndrome, although this is more associated with small cell carcinoma, it can occasionally be seen in non-small cell lung cancers as well. Discussed with the patient the results of his imaging and that a diagnostic procedure with bronchoscopy and biopsy is recommended for more definitive diagnosis. The patient is agreeable for a navigational bronchoscopy with biopsy as well as an EBUS with FNA of his lymph nodes for diagnosis. His Plavix has been held since his admission and his aspirin was changed from 325 to 81 mg daily which can be continued for the procedure. - Patient is planned for bronchoscopy on Tuesdays at 7:30 a.m. Would make him nothing by mouth at midnight and hold his a.m. deep venous thrombosis (DVT) prophylaxis. - Continue with broad-spectrum antibiotics with meropenem for a possible cavitating pneumonia lung abscess. His sputum culture was positive only for a few yeast like organisms. - Would check a Galactomannan and [id number]-Nbhsgr, however, vzvz-Q-Askhid can be positive falsely with certain antibiotics such as meropenem. - Would also start the patient on DuoNebs [id number] and discontinue the Spiriva as he reports he has been having difficulty with using his Spiriva while inpatient and he does have some coarse wheeze noted on exam. - We will also check antibodies for possible paraneoplastic syndrome such as Lambert-Eaton as well as myasthenia gravis antibodies for his weakness. - Continue to encourage the patient to work with physical therapy (PT) and occupational therapy (OT) and for out of bed to chair. - Would also give patient incentive spirometer for him to use while he is inpatient. - Continue monitoring his ins and outs. The patient is on IV fluids currently and if there is suspicion of some fluid overload would likely restart his home Lasix. If his creatinine continues to trend up he may have a component of cardiorenal syndrome and may also need his Lasix restarted at that time. DVT prophylaxis, heparin. CODE STATUS: DO NOT RESUSCITATE/DO NOT INTUBATE. Will follow-up with the patient on Tuesday with his bronchoscopy. ELIZABETH
[2018-12-28] MEDS: IPRATROPIUM 0.5MG/ALBUTEROL 2.5MG INH SOL UD 3ML (DUONEB)(J7620) NEB SCH ×2 (15:22→19:53)
[2018-12-28 16:00] VITALS: BP 121/56
[2018-12-28 20:00] VITALS: BP 104/55
[2018-12-28] MEDS: ATORVASTATIN 20 MG TAB PO SCH (20:55)
[2018-12-28 23:59] VITALS: BP 121/72
[2018-12-29] MEDS: MEROPENEM INJ 1 GM in APPROPRIATE DILUENT 1 EA IV SCH ×2 (00:11→13:02)
[2018-12-29] MEDS: IPRATROPIUM 0.5MG/ALBUTEROL 2.5MG INH SOL UD 3ML (DUONEB)(J7620) NEB SCH ×4 (01:38→20:36)
[2018-12-29 04:00] VITALS: BP 115/58
[2018-12-29] MEDS: SLF 3 ML SYR IV SCH ×2 (05:20→14:00)
[2018-12-29 05:34] LABS: HEMATOCRIT 28.9 % (42.0-52.0); HEMOGLOBIN 8.8 g/dl (13.5-17.5); MEAN CORPUSCULAR HEMOGLOBIN 28.9 pg (27.0-33.0); MEAN CORPUSCULAR HGB CONC 30.4 g/dl (32.0-36.5); MEAN CORPUSCULAR VOLUME 95.1 fl (80.0-96.0); PLATELET COUNT, AUTOMATED 204 10^3/uL (150-450); RED BLOOD COUNT 3.04 10^6/uL (4.30-6.10); WHITE BLOOD COUNT 10.1 10^3/uL (4.0-10.0)
[2018-12-29 05:56] LABS: C REACTIVE PROTEIN QUANTITATIV 14.1 MG/DL (0.00-0.30); CALCIUM LEVEL 9.2 MG/DL (8.8-10.2); CREATININE FOR GFR 1.82 MG/DL (0.70-1.30); GLOMERULAR FILTRATION RATE 38.1 (>35); POTASSIUM SERUM 5.2 MEQ/L (3.5-5.1)
[2018-12-29 08:00] VITALS: BP 134/68
[2018-12-29] MEDS: MAGNESIUM OXIDE 400 MG TAB (MAG-OX) PO SCH (08:09)
[2018-12-29] MEDS: amLODIPine 10 MG TAB PO SCH (08:09)
[2018-12-29] MEDS: GEMFIBROZIL 600 MG TAB PO SCH ×2 (08:09→17:33)
[2018-12-29] MEDS: HumaLOG INSULIN (NovoLOG) PER UNIT SC SCH ×4 (08:10→20:44)
[2018-12-29] MEDS: CARVedilol 12.5 MG TAB PO SCH ×2 (08:10→20:44)
[2018-12-29] MEDS: FERROUS SULFATE 325MG TAB PO SCH (08:10)
[2018-12-29] MEDS: PANTOPRAZOLE 40MG TAB (PROTONIX) PO SCH (08:10)
[2018-12-29] MEDS: ASPIRIN 81 MG ENTERIC TAB PO SCH (08:10)
[2018-12-29] MEDS: FUROSEMIDE 20 MG TAB PO SCH ×2 (08:11→17:33)
[2018-12-29] MEDS: HEPARIN SOD (PORCINE) 5000 UNITS/ML VIAL SC SCH ×2 (08:11→20:44)
[2018-12-29 09:31] LABS: BASO % 0.3 % (0.0-1.0); EOS # 0.3 10^3/uL (0.0-0.50); EOS % 3.1 % (0.0-3.0); LYMPH # 0.8 10^3/uL (1.5-4.5); LYMPH % 8.3 % (24.0-44.0); MONO # 0.9 10^3/uL (0.0-0.8); MONO % 9.6 % (0.0-5.0); NEUTROPHILS # 7.5 10^3/uL (1.8-7.7); NEUTROPHILS % 77.6 % (36.0-66.0)
--- NOTE | 2018-12-29 10:27 | IPNPDOC ---
Text Note Date of Service The patient was seen on 12/29/18. NOTE Subjective: Patient was seen and examined at the bedside. Currently patient reports that he continues to experience weakness. He denies any CP, SOB or palpitations. He has expressed to me that he would like to pursue hospice at this time. I have advised him that I would let his family know of his request, he has agreed. Called and discussed with Jennifer Luz (Daughter) who has said that she would still like to pursue a bronchoscopy. I have advised her that when she comes in, we can discuss further. Currently patient has not been eating and participating to any significant degree with PT or OT, and would like to remain in bed for most of the time. Objective: Vitals (See below) General: Lying in bed, no acute distress, comfortable, AAOx3 HEENT: NC, AT CVS: +S1S2 Lungs: Fair air entry b/l, no appreciable rhonchi, rales or wheezing Abdomen: Remains soft, nondistended and nontender Extremities: No appreciable pitting edema, - Calf tenderness Assessment and plan: SOB, Weakness 2/2 Right Sided Cavitary Lesion - possibly 2/2 Pneumonia, possibly 2/2 Malignancy - Clinically remains relatively unchanged; as reported some improvement in breathing; still experiences severe weakness - Patient received hemodynamically stable and afebrile - Leukocytosis remains unchanged. CRP continues to trend up - Sputum culture 12/26; Moderate growth of yeast like organisms - MRSA screen pending - Patient's dose of aspirin and Plavix were adjusted for preparation for EBUS - Original plan was to get a PET scan completed as an outpatient, followed by EBUS; however will likely proceed with bronchoscopy as inpatient - Pulmonary will discuss with patient today about bronchoscopy that will be performed on Tuesday01/01/2019 - c/w Meropenem (Day #7); Will start Vancomycin and Diflucan ?Lesion noted on Right Rib - Bone scan 12/23: Degenerative changes to the cervical and lumbar spine. No evidence for osseous malignancy or metastatic disease. Weakness / Debility - etiology unclear - possibly 2/2 above - Poor oral intake - c/w IV fluid hydration; will adjust to dextrose based fluids - PT and OT on board; patient has been very slow to progress Diabetes Mellitus - c/w ISS Chronic kidney disease stage III/IV - Serum Cr at baseline CHF (Diastolic dysfunction, EF 65%) - Appears euvolemic - Will hold Furosemide Coronary artery disease with coronary bypass grafting and PCI - Coronary revascularization in March 2017, at which time he had a Stent placed in the RCA and diagonal branch of LAD - Continue with Coreg, Atorvastatin - Aspirin dose decreased to 81 mg and Plavix held secondary to above; - Risks / benefits / alternative options discussed at length regarding reducing dose/holding antiplatelet therapy - The patient and his have verbalized understanding of the same, and agree with the plan moving forward Hx of CVA - ASA 81mg, Plavix held 2/2 Above - Cont Statin Hypertension - BP well controlled - c/w Coreg COPD, stable - no evidence of exacerbation - c/w inhaled therapy as ordered Dyslipidemia - Cont Statin, gemfibrozil DVT prophylaxis - c/w Heparin Code Status: - DNR/DNI Prognosis: - Poor Shelter Prognosis if this lesion is indeed malignant in nature - Patient and daughter aware of the possibility of malignancy Disposition: - Pending clinical improvement, and functional optimization with physical therapy - Patient will need to complete further malignancy workup; will require tissue diagnosis to confirm - Currently patient would like to pursue hospice; will discuss with family once at the bedside VS,Lexie, I+O VS, Lexie, I+O Laboratory Tests 12/29/18 05:16 Red Blood Count 3.04 L, Mean Corpuscular Volume 95.1, Mean Corpuscular Hemoglobin 28.9, Mean Corpuscular Hemoglobin Concent 30.4 L, Red Cell Distribution Width 14.7 H, Calcium Level 9.2 Vital Signs Date Time Temp Pulse Resp B/P (MAP) Pulse Ox O2 Delivery O2 Flow Rate FiO2 12/29/18 08:31 Nasal Cannula 1.0 12/29/18 08:10 74 134/68 12/29/18 08:00 98.3 18 98 I&O- Last 24 Hours up to 6 AM 12/29/18 06:00 Intake Total 1510 ml Output Total 1370 ml Balance 140 ml RAMÍREZ HAMLIN MD Dec 29, 2018 10:27
[2018-12-29] MEDS: D5W/0.45% SODIUM CHLORIDE 1,000 ML IV SCH (10:54)
[2018-12-29 12:00] VITALS: BP 117/53
[2018-12-29] MEDS ORDERED: FLUCONAZOLE 100 MG in APPROPRIATE DILUENT 1 EA IV SCH (12:00)
--- NOTE | 2018-12-29 12:27 | PHACANCOPD ---
PHARMACY VANCOMYCIN DOSING Pt Demographics Demographics Patient Age:83 , Weight:84.000 , Gender: male Adjusted Body Weight Date: 12/29/18, Adjusted Body Weight: [74.6] Kg Events Past 24 Hours Events Past 24 Hours: NO: Dialysis, Diuretic Therapy, Change in CrCl, Fever, Elevation in WBC, Pending Diagnostics, Pending Procedures, Other Vancomycin Vancomycin indication: HCAP Vancomycin Target Ranges: 15-20 mcg/ml Vancomycin Load Y/N: Yes Load Dose Date Time Vancomycin Load Dose: 1.75G Date:12/29/18 Time: 12:00 Vancomycin Dose Date: 12/29/18. Current Vancomycin Dose: [1G IV Q24H] Intermittent Dosing?: No Labs Labs Item Value Date Time White Blood Count 11.3 10^3/uL H 12/27/18 0529 White Blood Count 10.7 10^3/uL H 12/28/18 0550 White Blood Count 10.1 10^3/uL H 12/29/18 0516 Glomerular Filtration Rate 38.3 12/27/18 0529 Glomerular Filtration Rate 42.0 12/28/18 0550 Glomerular Filtration Rate 38.1 12/29/18 0516 Micro Microbiology 12/23/18 Blood Culture - Final, Complete NO GROWTH AFTER 5 DAYS 12/23/18 Blood Culture - Final, Complete NO GROWTH AFTER 5 DAYS 12/26/18 Gram Stain - Final, Complete 12/26/18 Sputum Culture - Final, Complete Yeast Like Organism Creatinine Clearance Date:12/29/18. Creatinine Clearance: [~32ml/min]. Pending Labs vancomycin trough 12/31/18 @11 Assessment and Plan Maintaining Current Dose?: Yes Reason for dose change: No Dose Change Pharmacist Note Pharmacist Note Date: 12/29/18. Pharmacist note:PT is an 83 year old male consulted for pharmacy vancomycin dosing by Dr. Diana Garnica after a sputum culture for gram + cocci in chains and clusters after a hospital acquired pneumonia diagnosis. Due to the patients age, renal function, and upon his adjusted body weight, a load of 1.75 grams was ordered for the patient at 12:00 12/29/18 with a scheduled dosing of 1 gram every 24 hours starting 12/30/18 @12. A MRSA nasal screen was already ordered by Dr. Garnica. A trough is scheduled for 12/31/18 @ 11:00 prior to the third dose. We will continue to monitor and adjust the dose as needed. [facility] Dec 29, 2018 12:27
[2018-12-29] MEDS ORDERED: VANCOMYCIN HCL 750 MG, VIAL MATE ADAPTER 1 EACH in D5W 250 ML IV ONE (13:00)
[2018-12-29] MEDS: VANCOMYCIN HCL 1,000 MG, VIAL MATE ADAPTER 1 EACH in D5W 250 ML IV SCH (13:49)
[2018-12-29] MEDS: ACETAMINOPHEN TAB 650MG DOSE (2X325MG) PO PRN (15:06)
[2018-12-29 16:00] VITALS: BP 134/60
[2018-12-29] MEDS: FLUCONAZOLE 100 MG in APPROPRIATE DILUENT 1 EA IV SCH (17:32)
[2018-12-29] MEDS: ATORVASTATIN 20 MG TAB PO SCH (20:43)
[2018-12-30] VITALS (7 sets, daily range): BP systolic 131–156; BP diastolic 63–69
[2018-12-30] MEDS: MEROPENEM INJ 1 GM in APPROPRIATE DILUENT 1 EA IV SCH ×2 (01:07→13:57)
[2018-12-30] MEDS: SLF 3 ML SYR IV SCH ×4 (01:08→22:00)
[2018-12-30] MEDS: IPRATROPIUM 0.5MG/ALBUTEROL 2.5MG INH SOL UD 3ML (DUONEB)(J7620) NEB SCH ×4 (01:59→20:43)
[2018-12-30] MEDS: D5W/0.45% SODIUM CHLORIDE 1,000 ML IV SCH (05:41)
[2018-12-30 05:50] LABS: HEMATOCRIT 27.1 % (42.0-52.0); HEMOGLOBIN 8.3 g/dl (13.5-17.5); MEAN CORPUSCULAR HEMOGLOBIN 28.1 pg (27.0-33.0); MEAN CORPUSCULAR HGB CONC 30.6 g/dl (32.0-36.5); MEAN CORPUSCULAR VOLUME 91.9 fl (80.0-96.0); PLATELET COUNT, AUTOMATED 214 10^3/uL (150-450); RED BLOOD COUNT 2.95 10^6/uL (4.30-6.10); WHITE BLOOD COUNT 9.9 10^3/uL (4.0-10.0)
[2018-12-30 06:13] LABS: CALCIUM LEVEL 8.4 MG/DL (8.8-10.2); CREATININE FOR GFR 1.51 MG/DL (0.70-1.30); GLOMERULAR FILTRATION RATE 47.2 (>35); POTASSIUM SERUM 4.7 MEQ/L (3.5-5.1)
[2018-12-30] MEDS: FERROUS SULFATE 325MG TAB PO SCH (08:48)
[2018-12-30] MEDS: GEMFIBROZIL 600 MG TAB PO SCH ×2 (08:49→17:44)
[2018-12-30] MEDS: PERCOCET 5MG/325MG TAB PO PRN (08:49)
[2018-12-30] MEDS: ASPIRIN 81 MG ENTERIC TAB PO SCH (08:49)
[2018-12-30] MEDS: CARVedilol 12.5 MG TAB PO SCH ×2 (08:50→20:35)
[2018-12-30] MEDS: HEPARIN SOD (PORCINE) 5000 UNITS/ML VIAL SC SCH ×2 (08:50→20:35)
[2018-12-30] MEDS: amLODIPine 10 MG TAB PO SCH (08:50)
[2018-12-30] MEDS: FUROSEMIDE 20 MG TAB PO SCH ×2 (08:50→17:44)
[2018-12-30] MEDS: HumaLOG INSULIN (NovoLOG) PER UNIT SC SCH ×4 (08:51→20:36)
[2018-12-30] MEDS: PANTOPRAZOLE 40MG TAB (PROTONIX) PO SCH (08:51)
[2018-12-30] MEDS: MAGNESIUM OXIDE 400 MG TAB (MAG-OX) PO SCH (08:51)
--- NOTE | 2018-12-30 09:35 | IPNPDOC ---
Text Note Date of Service The patient was seen on 12/30/18. NOTE Subjective: Patient was seen and examined at the bedside. Patient reports that he still experiencing severe shoulder pain, left greater than right. Patient has reported that he has received imaging the past that was consistent with some degenerative changes. Currently patient denies chest pain or palpitations. Still reports some shortness of breath without any significant cough. Denies any nausea, vomiting, abdominal pain or any bowel problems. Objective: Vitals (See below) General: Lying in bed, no acute distress, comfortable, AAOx3 HEENT: NC, AT CVS: +S1S2 Lungs: Air entry remains fair bilaterally without any evidence of rhonchi, wheezing or rales Abdomen: Abdomen is soft without distention or tenderness Extremities: Lower extremities are free of any edema, - Calf tenderness Assessment and plan: SOB, Weakness 2/2 Right Sided Cavitary Lesion - possibly 2/2 Pneumonia, possibly 2/2 Malignancy - Patient continues to experience severe weakness has been slow to progress with physical therapy - Patient received hemodynamically stable and afebrile - Leukocytosis has shown some improvement today; CRP remains relatively stable - Sputum culture 12/26; Moderate growth of yeast like organisms - MRSA screen pending - Patient's dose of aspirin and Plavix were adjusted for preparation for EBUS - Original plan was to get a PET scan completed as an outpatient, followed by EBUS; however will likely proceed with bronchoscopy as inpatient - Pulmonary will discuss with patient today about bronchoscopy that will be performed on Tuesday01/01/2019 - c/w Meropenem (Day #7); Vancomycin and Diflucan (Day #2) ?Lesion noted on Right Rib - Bone scan 12/23: Degenerative changes to the cervical and lumbar spine. No evidence for osseous malignancy or metastatic disease. Bilateral shoulder pain (L>R) - Will evaluate with x-ray of shoulder bilaterally - Continue with current pain regimen Weakness / Debility - etiology unclear - possibly 2/2 above - Poor oral intake - c/w IV fluid hydration; will adjust to dextrose based fluids - PT and OT on board; patient has been very slow to progress Diabetes Mellitus - c/w ISS Chronic kidney disease stage III/IV - Serum Cr at baseline CHF (Diastolic dysfunction, EF 65%) - Appears euvolemic - Will hold Furosemide Coronary artery disease with coronary bypass grafting and PCI - Coronary revascularization in March 2017, at which time he had a Stent placed in the RCA and diagonal branch of LAD - Continue with Coreg, Atorvastatin - Aspirin dose decreased to 81 mg and Plavix held secondary to above; - Risks / benefits / alternative options discussed at length regarding reducing dose/holding antiplatelet therapy - The patient and his family have verbalized understanding of the same, and agree with the plan moving forward Hx of CVA - ASA 81mg, Plavix held 2/2 Above - Cont Statin Hypertension - BP well controlled - c/w Coreg COPD, stable - no evidence of exacerbation - c/w inhaled therapy as ordered Dyslipidemia - Cont Statin, gemfibrozil DVT prophylaxis - c/w Heparin Code Status: - DNR/DNI Prognosis: - Poor Undercoater Prognosis if this lesion is indeed malignant in nature - Patient and daughter aware of the possibility of malignancy Disposition: - Continue with new antibiotics and antifungal therapy - Planned for bronchoscopy on Tuesday - After discussion with daughter and patient at bedside; patient wanted to pursue bronchoscopy instead of hospice VS,Lexie, I+O VS, Lexie, I+O Laboratory Tests 12/30/18 05:16 Red Blood Count 2.95 L, Mean Corpuscular Volume 91.9, Mean Corpuscular Hemoglobin 28.1, Mean Corpuscular Hemoglobin Concent 30.6 L, Red Cell Distribution Width 14.6 H, Calcium Level 8.4 L Vital Signs Date Time Temp Pulse Resp B/P (MAP) Pulse Ox O2 Delivery O2 Flow Rate FiO2 12/30/18 08:50 77 140/67 12/30/18 08:49 97.1 20 93 1.0 12/29/18 20:37 Nasal Cannula I&O- Last 24 Hours up to 6 AM 12/30/18 06:00 Intake Total 4893 ml Output Total 1575 ml Balance 3318 ml RAMÍREZ HAMLIN MD Dec 30, 2018 09:35
--- NOTE | 2018-12-30 10:23 | REP ---
Clinical: Bilateral shoulder pain. Technique: Internal rotation, external rotation, Y view of the right and left shoulder. Findings: Right shoulder demonstrates subtle cortical irregularity at the acromioclavicular joint as well as blunting to the ossified glenoid rim. No acute fracture or dislocation. Subacromial space measures 8.5 mm. Left shoulder demonstrates cortical irregularity at the acromioclavicular joint with s mild chronic resorption of the distal clavicle and adjacent 8 mm calcified loose body. Glenohumeral joint appears intact. Subacromial space measures 8.5 mm. Impression: Mild/moderate bilateral degenerative changes as described above. Electronically Signed by Elian Davis MD 12/30/2018 10:14 A
[2018-12-30] MEDS: VANCOMYCIN HCL 1,000 MG, VIAL MATE ADAPTER 1 EACH in D5W 250 ML IV SCH (12:31)
[2018-12-30] MEDS ORDERED: LIDOCAINE 5% (LIDODERM) PATCH TD ONE (13:00)
[2018-12-30] MEDS: FLUCONAZOLE 100 MG in APPROPRIATE DILUENT 1 EA IV SCH (15:28)
[2018-12-30] MEDS: ATORVASTATIN 20 MG TAB PO SCH (20:34)
[2018-12-31] MEDS: MEROPENEM INJ 1 GM in APPROPRIATE DILUENT 1 EA IV SCH ×2 (00:50→12:36)
[2018-12-31] MEDS ORDERED: **NOTE PATIENT COMMENT** MISC XX ONE (01:00)
[2018-12-31] MEDS: IPRATROPIUM 0.5MG/ALBUTEROL 2.5MG INH SOL UD 3ML (DUONEB)(J7620) NEB SCH ×4 (02:09→20:09)
[2018-12-31 04:00] VITALS: BP 156/63
[2018-12-31 05:32] LABS: C REACTIVE PROTEIN QUANTITATIV 15.4 MG/DL (0.00-0.30)
[2018-12-31] MEDS: SLF 3 ML SYR IV SCH ×3 (06:45→20:54)
[2018-12-31 08:00] VITALS: BP 130/60
[2018-12-31] MEDS: HumaLOG INSULIN (NovoLOG) PER UNIT SC SCH ×4 (08:26→21:00)
[2018-12-31] MEDS: HEPARIN SOD (PORCINE) 5000 UNITS/ML VIAL SC SCH ×2 (08:27→20:51)
[2018-12-31] MEDS: amLODIPine 10 MG TAB PO SCH (08:28)
[2018-12-31] MEDS: GEMFIBROZIL 600 MG TAB PO SCH ×2 (08:28→16:42)
[2018-12-31] MEDS: PANTOPRAZOLE 40MG TAB (PROTONIX) PO SCH (08:28)
[2018-12-31] MEDS: MAGNESIUM OXIDE 400 MG TAB (MAG-OX) PO SCH (08:29)
[2018-12-31] MEDS: FUROSEMIDE 20 MG TAB PO SCH ×2 (08:29→16:42)
[2018-12-31] MEDS: CARVedilol 12.5 MG TAB PO SCH ×2 (08:29→20:52)
[2018-12-31] MEDS: FERROUS SULFATE 325MG TAB PO SCH (08:29)
[2018-12-31] MEDS: ASPIRIN 81 MG ENTERIC TAB PO SCH (08:29)
[2018-12-31] MEDS: D5W/0.45% SODIUM CHLORIDE 1,000 ML IV SCH ×2 (08:30→20:51)
[2018-12-31] MEDS: LIDOCAINE 5% (LIDODERM) PATCH TD SCH (08:35)
[2018-12-31 09:08] LABS: CALCIUM LEVEL 9.5 MG/DL (8.8-10.2); CREATININE FOR GFR 1.63 MG/DL (0.70-1.30); GLOMERULAR FILTRATION RATE 43.2 (>35); MAGNESIUM LEVEL 2.3 MG/DL (1.8-2.4); POTASSIUM SERUM 5.1 MEQ/L (3.5-5.1)
[2018-12-31 09:14] LABS: BASO % 0.2 % (0.0-1.0); EOS # 0.2 10^3/uL (0.0-0.50); EOS % 2.5 % (0.0-3.0); HEMATOCRIT 28.5 % (42.0-52.0); HEMOGLOBIN 8.6 g/dl (13.5-17.5); LYMPH # 0.6 10^3/uL (1.5-4.5); LYMPH % 6.7 % (24.0-44.0); MEAN CORPUSCULAR HEMOGLOBIN 28.8 pg (27.0-33.0); MEAN CORPUSCULAR HGB CONC 30.2 g/dl (32.0-36.5); MEAN CORPUSCULAR VOLUME 95.3 fl (80.0-96.0); MONO # 0.8 10^3/uL (0.0-0.8); MONO % 8.2 % (0.0-5.0); NEUTROPHILS # 7.6 10^3/uL (1.8-7.7); NEUTROPHILS % 81.6 % (36.0-66.0); PLATELET COUNT, AUTOMATED 211 10^3/uL (150-450); RED BLOOD COUNT 2.99 10^6/uL (4.30-6.10); WHITE BLOOD COUNT 9.3 10^3/uL (4.0-10.0)
--- NOTE | 2018-12-31 10:56 | IPNPDOC ---
Text Note Date of Service The patient was seen on 12/31/18. NOTE Subjective: Patient was seen and examined at the bedside. Patient reports that this morning. He's not expensively. No significant shoulder pain. He denies shortness of breath, cough or palpitations. Denies nausea, vomiting. Still reports a very poor appetite. Has reported normal bowel movement. Objective: Vitals (See below) General: Lying in bed, no acute distress, comfortable, AAOx3 HEENT: NC, AT CVS: +S1S2 Lungs: Air entry is fair bilaterally, no evidence of rhonchi, rales or wheezing Abdomen: Remains soft, nondistended and nontender Extremities: Edema at lower extremities is not appreciated, - Calf tenderness Assessment and plan: SOB, Weakness 2/2 Right Sided Cavitary Lesion - possibly 2/2 Pneumonia, possibly 2/2 Malignancy - Patient continues to experience severe weakness has been slow to progress with physical therapy - Patient received hemodynamically stable and afebrile - s/p Leukocytosis; CRP remains relatively stable - Sputum culture 12/26; Moderate growth of yeast like organisms - MRSA screen negative - Patient's dose of aspirin and Plavix were adjusted for preparation for EBUS - Original plan was to get a PET scan completed as an outpatient, followed by EBUS; however will likely proceed with bronchoscopy as inpatient - Pulmonary to perform Bronchoscopy on 01/01/2019 - Consulted oncology for evaluation - c/w Meropenem (Day #8) and Diflucan (Day #3); s/p Vancomycin ?Lesion noted on Right Rib - Bone scan 12/23: Degenerative changes to the cervical and lumbar spine. No evidence for osseous malignancy or metastatic disease. Bilateral shoulder pain (L>R) - XR shoulder bilaterally 12/30: Mild/moderate bilateral degenerative changes as described above. - s/p Opiate based pain medications (re: Lethargy) - c/w topical analgesia Weakness / Debility - etiology unclear - possibly 2/2 above - Poor oral intake - c/w IV fluid hydration (re: Poor intake) - PT and OT on board; patient has been very slow to progress Diabetes Mellitus - c/w ISS Chronic kidney disease stage III/IV - Serum Cr at baseline CHF (Diastolic dysfunction, EF 65%) - Appears euvolemic - Will hold Furosemide Coronary artery disease with coronary bypass grafting and PCI - Coronary revascularization in March 2017, at which time he had a Stent placed in the RCA and diagonal branch of LAD - c/w Coreg, Atorvastatin - Aspirin dose decreased to 81 mg and Plavix held secondary to above; - Risks / benefits / alternative options discussed at length regarding reducing dose/holding antiplatelet therapy - The patient and his family have verbalized understanding of the same, and agree with the plan moving forward Hx of CVA - ASA 81mg, Plavix held 2/2 Above - Cont Statin Hypertension - BP well controlled - c/w Coreg COPD, stable - no evidence of exacerbation - c/w inhaled therapy as ordered Dyslipidemia - Cont Statin, gemfibrozil DVT prophylaxis - c/w Heparin Code Status: - DNR/DNI 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 Prognosis if this lesion is indeed malignant in nature - Patient and daughter aware of the possibility of malignancy Disposition: - Continue with antifungal therapy - Planned for bronchoscopy on Tuesday - Oncology consulted - After discussion with daughter and patient at bedside; patient wanted to p ursue bronchoscopy instead of hospice VS,Fishbone, I+O VS, Fishbone, I+O Laboratory Tests 12/31/18 04:40 Calcium Level 9.5 12/31/18 09:05 Red Blood Count 2.99 L, Mean Corpuscular Volume 95.3, Mean Corpuscular Hemoglobin 28.8, Mean Corpuscular Hemoglobin Concent 30.2 L, Red Cell Distribution Width 14.6 H, Neutrophils (%) (Auto) 81.6 H, Lymphocytes (%) (Auto) 6.7 L, Monocytes (%) (Auto) 8.2 H, Eosinophils (%) (Auto) 2.5, Basophils (%) (Auto) 0.2, Neutrophils # (Auto) 7.6, Lymphocytes # (Auto) 0.6 L, Monocytes # (Auto) 0.8, Eosinophils # (Auto) 0.2, Basophils # (Auto) 0.0 Vital Signs Date Time Temp Pulse Resp B/P (MAP) Pulse Ox O2 Delivery O2 Flow Rate FiO2 12/31/18 08:29 79 130/60 12/31/18 08:00 1.0 12/31/18 08:00 97.6 18 98 12/29/18 20:37 Nasal Cannula I&O- Last 24 Hours up to 6 AM 12/31/18 06:00 Intake Total 615 ml Output Total 1675 ml Balance -1060 ml RAMÍREZ HAMLIN MD 7, 2019 10:56
[2018-12-31 12:00] VITALS: BP 122/56
[2018-12-31] MEDS: FLUCONAZOLE 100 MG in APPROPRIATE DILUENT 1 EA IV SCH (14:16)
[2018-12-31 16:00] VITALS: BP 128/60
[2018-12-31] MEDS ORDERED: SERTRALINE HCL 50 MG TAB PO ONE (16:00)
[2018-12-31 20:00] VITALS: BP 125/58
[2018-12-31] MEDS: ATORVASTATIN 20 MG TAB PO SCH (20:52)
[2018-12-31] MEDS: **NOTE PATIENT COMMENT** MISC XX SCH (20:53)
[2018-12-31] MEDS: ACETAMINOPHEN TAB 650MG DOSE (2X325MG) PO PRN (22:12)
[2018-12-31 23:59] VITALS: BP 132/63
[2019-01-01] VITALS (9 sets, daily range): BP systolic 107–141; BP diastolic 52–81
[2019-01-01] MEDS: MEROPENEM INJ 1 GM in APPROPRIATE DILUENT 1 EA IV SCH (00:41)
[2019-01-01] MEDS: IPRATROPIUM 0.5MG/ALBUTEROL 2.5MG INH SOL UD 3ML (DUONEB)(J7620) NEB SCH ×4 (02:00→20:27)
[2019-01-01] MEDS: SLF 3 ML SYR IV SCH ×3 (05:44→20:21)
[2019-01-01 06:24] LABS: BASO % 0.2 % (0.0-1.0); EOS # 0.2 10^3/uL (0.0-0.50); EOS % 2.2 % (0.0-3.0); HEMATOCRIT 25.7 % (42.0-52.0); HEMOGLOBIN 7.8 g/dl (13.5-17.5); LYMPH # 0.8 10^3/uL (1.5-4.5); LYMPH % 9.5 % (24.0-44.0); MEAN CORPUSCULAR HEMOGLOBIN 28.9 pg (27.0-33.0); MEAN CORPUSCULAR HGB CONC 30.4 g/dl (32.0-36.5); MEAN CORPUSCULAR VOLUME 95.2 fl (80.0-96.0); MONO # 0.8 10^3/uL (0.0-0.8); MONO % 10.1 % (0.0-5.0); NEUTROPHILS # 6.2 10^3/uL (1.8-7.7); NEUTROPHILS % 76.8 % (36.0-66.0); PLATELET COUNT, AUTOMATED 196 10^3/uL (150-450)
[2019-01-01 06:35] LABS: C REACTIVE PROTEIN QUANTITATIV 13.7 MG/DL (0.00-0.30); CALCIUM LEVEL 9.3 MG/DL (8.8-10.2); CREATININE FOR GFR 1.7 MG/DL (0.70-1.30); GLOMERULAR FILTRATION RATE 41.2 (>35); MAGNESIUM LEVEL 2.4 MG/DL (1.8-2.4); POTASSIUM SERUM 4.9 MEQ/L (3.5-5.1)
[2019-01-01] MEDS ORDERED: THROMBIN SOLN 5,000 UNITS VIAL As Ordered ONE (07:00)
[2019-01-01] MEDS ORDERED: ONDANSETRON 4MG/2ML VIAL (J2405) As Ordered ONE (07:00)
[2019-01-01] MEDS ORDERED: PROPOFOL 200 MG/20 ML VIAL As Ordered ONE (07:00)
[2019-01-01] MEDS ORDERED: LIDOCAINE VISCOUS 2% SOLN 15ML UDC As Ordered ONE (07:00)
[2019-01-01] MEDS ORDERED: ROCURONIUM BROMIDE 50 MG/5 ML VIAL As Ordered ONE (07:00)
[2019-01-01] MEDS ORDERED: LIDOCAINE 1% SDV INJ 30 ML VIAL As Ordered ONE (07:00)
[2019-01-01] MEDS ORDERED: EPINEPHrine 1MG/10ML SYRINGE 1.5IN As Ordered ONE (07:00)
[2019-01-01] MEDS ORDERED: dexameTHASONE 4 MG/ML 1ML VIAL (J1100) As Ordered ONE (07:00)
[2019-01-01] MEDS ORDERED: fentaNYL 100 MCG/2 ML INJECTION (J3010) As Ordered ONE (07:01)
[2019-01-01] MEDS ORDERED: MIDAZOLAM INJ 2 MG/2 ML VIAL (J2250) As Ordered ONE (07:01)
[2019-01-01] MEDS ORDERED: LIDOCAINE 2% INJ 100 MG/5 ML SDV (FOR ANES.) As Ordered ONE (07:01)
[2019-01-01] MEDS ORDERED: CETACAINE SPRAY 5GM As Ordered ONE (07:50)
[2019-01-01] MEDS ORDERED: SUGAMMADEX SODIUM 500 MG/5 ML VIAL (BRIDION) As Ordered ONE (08:07)
--- NOTE | 2019-01-01 09:40 | REP ---
C-ARM VIEWS CHEST: Multiple C-arm views chest performed during bronchoscopy. Scope is seen overlying the right lung base. FLUOROSCOPY TIME: 167.4 seconds. Electronically Signed by Kuldeep Pearson MD 01/02/2019 09:40 A
[2019-01-01] MEDS ORDERED: IPRATROPIUM 0.5MG/ALBUTEROL 2.5MG INH SOL UD 3ML (DUONEB)(J7620) As Ordered ONE (09:47)
--- NOTE | 2019-01-01 09:59 | ROOR ---
Patient Name: Sher Bliss Procedure Date: 01/01/2019 7:21 AM Date of : 1935 Admit Type: Inpatient Age: 83 Room: Main OR Note Status: Finalized Attending MD: Keisha Grove MD Procedure: Bronchoscopy Indications: Right lower lobe mass, Mediastinal adenopathy, Paratracheal adenopathy Providers: Keisha Grove MD (Doctor), Assisting physician Sudha Arellano MD Referring MD: 2. Inpatient 2. Inpatient (Referring MD) Requesting Physician: Medicines: General Anesthesia, Cetacaine topical Complications: No immediate complications. Estimated blood loss: Minimal Procedure: Pre-Anesthesia Assessment: - Prior to the procedure, a History and Physical was performed, and patient medications and allergies were reviewed. The patient's tolerance of previous anesthesia was also reviewed. The risks and benefits of the procedure and the sedation options and risks were discussed with the patient. All questions were answered, and informed consent was obtained. Prior Anticoagulants: The patient has taken aspirin and Plavix (clopidogrel), last dose of plavix was more than 7 days prior to procedure and last dose of aspirin was day prior to procedure. ASA Grade Assessment: III - A patient with severe systemic disease. After reviewing the risks and benefits, the patient was deemed in satisfactory condition to undergo the procedure. The Bronchoscope was introduced through the mouth, via the endotracheal tube (the patient was intubated for the procedure) and advanced to the tracheobronchial tree of both lungs. The procedure was accomplished without difficulty. The patient tolerated the procedure well. Findings: Right Lung Abnormalities: Notable, elias/brown reddish, tenacious secretions were found in the right lung, more in the lower lobe. Areas of inflamed mucosa were found in the superior segment of the right lower lobe (B6), in the lateral basal segment of the right lower lobe (B9) and in the posterior basal segment of the right lower lobe (B10). Electromagnetic navigation bronchoscopy utilizing the [employer] system with iLogic upgrade was performed. The CT scan was used for planning purposes. A virtual bronchoscopic image was generated using the planning software and the miguel, left main bronchus miguel, left lower lobe basilar segment, right upper lobe, right middle lobe and right lower lobe basilar segment registration points were marked on the virtual image. The target in the superior segment of the right lower lobe was marked. A mass 3.7 cm in size was found and a pathway was identified. After a complete airway exam, the locatable guide/extended working channel was inserted and an automatic registration was performed by advancing the scope through the miguel, left main bronchus miguel, left lower lobe basilar segment, right upper lobe, right middle lobe and right lower lobe basilar segment. After registration, an average CT to body divergence of 0 mm was achieved. The navigation phase was then begun to locate the target lesion(s). Positioning off-center (in relation to the lesion) was confirmed using the Olympus radial probe US catheter. The locatable guide was removed from the extended working channel. Fluoroscopy guided transbronchial brushings were obtained in the superior segment of the right lower lobe with a needle brush and sent for routine cytology. Transbronchial brushing technique was selected because the sampling site was not visible endoscopically. Transbronchial needle aspiration of a mass was performed in the superior segment of the right lower lobe GenCut needle and sent for routine cytology. The procedure was guided by fluoroscopy. Transbronchial needle aspiration technique was selected because the sampling site was not visible endoscopically. Transbronchial biopsies were performed of a mass in the superior segment of the right lower lobe using forceps and sent for histopathology examination. The procedure was guided by fluoroscopy. Transbronchial biopsy technique was selected because the sampling site was not visible endoscopically. BAL was performed in the RLL superior segment (B6) of the lung and sent for cell count, bacterial culture, and fungal & AFB analysis and cytology. The return was blood-tinged, mucoid and turbid. Mucous plugs were present in the return fluid. An endobronchial ultrasound endoscope was utilized in order to assist with fine needle aspiration in the right paratracheal area and in the subcarinal area. Transbronchial needle aspiration of lymph nodes was performed in the right paratracheal area and in the subcarinal area using an Olympus EBUS-TBNA 21 gauge needle and sent for routine cytology and histopathology examination. The procedure was guided by ultrasound. Transbronchial needle aspiration technique was selected because the sampling site was not visible endoscopically. Impression: - Right lower lobe mass - Mediastinal adenopathy - Paratracheal adenopathy - Notable, elias/brown, tenacious secretions were found in the right lower lobe. - Mucosal inflammation was visualized in the superior segment of the right lower lobe (B6), in the lateral basal segment of the right lower lobe (B9) and in the posterior basal segment of the right lower lobe (B10). - Electromagnetic navigation bronchoscopy was performed. - Transbronchial brushings were obtained. - A transbronchial needle aspiration was performed. - Transbronchial lung biopsies were performed. - Bronchoalveolar lavage was performed. - Endobronchial ultrasound was performed. - A transbronchial needle aspiration was performed. Recommendation: - Await test results. Attending Participation: I personally performed the entire procedure. Keisha Grove MD 01/01/2019 9:59:13 AM Number of Addenda: 0 Note Initiated On: 01/01/2019 7:21 AM
--- NOTE | 2019-01-01 10:02 | REP ---
CHEST, PORTABLE: AP portable view of the chest is performed and compared to prior study of 12/23/2018. There is no pneumothorax status post bronchoscopy today. Bibasilar fibroatelectatic changes are noted. Cardiomediastinal silhouette appears magnified by technical factors. There are multiple sternal wires and mediastinal clips present. Electronically Signed by Kuldeep Pearson MD 01/02/2019 09:41 A
[2019-01-01] MEDS ORDERED: ONDANSETRON 4MG/2ML VIAL (J2405) IV PRN (10:15)
[2019-01-01] MEDS ORDERED: fentaNYL 100 MCG/2 ML INJECTION (J3010) IV PRN (10:15)
[2019-01-01] MEDS ORDERED: IPRATROPIUM 0.5MG/ALBUTEROL 2.5MG INH SOL UD 3ML (DUONEB)(J7620) INH ONE (10:15)
[2019-01-01] MEDS ORDERED: PERCOCET 5MG/325MG TAB PO PRN (10:15)
[2019-01-01] MEDS ORDERED: METOCLOPRAMIDE INJ 10MG/2ML VIAL (J2765) IV PRN (10:15)
[2019-01-01] MEDS ORDERED: LR 1,000 ML IV SCH (10:15)
[2019-01-01] MEDS: HumaLOG INSULIN (NovoLOG) PER UNIT SC SCH ×4 (10:52→19:59)
[2019-01-01 11:13] LABS: APPEARANCE CLOUDY (CLEAR); COLOR PINK (COLORLESS); SOURCE RIGHT LOWER LOBE
[2019-01-01 11:49] LABS: MONOCYTES/MACROPHAGES, BAL 13 %
[2019-01-01] MEDS: CARVedilol 12.5 MG TAB PO SCH ×2 (12:52→20:21)
[2019-01-01] MEDS: FUROSEMIDE 20 MG TAB PO SCH ×2 (12:52→18:06)
[2019-01-01] MEDS: PANTOPRAZOLE 40MG TAB (PROTONIX) PO SCH (12:52)
[2019-01-01] MEDS: MAGNESIUM OXIDE 400 MG TAB (MAG-OX) PO SCH (12:53)
[2019-01-01] MEDS: ASPIRIN 81 MG ENTERIC TAB PO SCH (12:53)
[2019-01-01] MEDS: SERTRALINE HCL 50 MG TAB PO SCH (12:53)
[2019-01-01] MEDS: GEMFIBROZIL 600 MG TAB PO SCH ×2 (12:53→18:06)
[2019-01-01] MEDS: amLODIPine 10 MG TAB PO SCH (12:53)
[2019-01-01] MEDS: FERROUS SULFATE 325MG TAB PO SCH (12:53)
[2019-01-01] MEDS: LIDOCAINE 5% (LIDODERM) PATCH TD SCH (12:54)
[2019-01-01] MEDS: D5W/0.45% SODIUM CHLORIDE 1,000 ML IV SCH (12:54)
[2019-01-01] MEDS: FLUCONAZOLE 100 MG in APPROPRIATE DILUENT 1 EA IV SCH (14:12)
[2019-01-01] MEDS: ATORVASTATIN 20 MG TAB PO SCH (20:20)
[2019-01-01] MEDS: HEPARIN SOD (PORCINE) 5000 UNITS/ML VIAL SC SCH (20:21)
[2019-01-01] MEDS: **NOTE PATIENT COMMENT** MISC XX SCH (20:22)
--- NOTE | 2019-01-01 23:45 | IPN ---
DATE: 01/01/2019 SUBJECTIVE: Patient examined at bedside, status post bronchoscopy earlier today. His daughter and neighbor are in the room. The patient is sleepy and tired. Some of the information is obtained through the family and friend who state that he is currently stable, about the same as yesterday, not having any shortness of breath, coughing, or any phlegm production. No reported events overnight and tolerated the bronchoscopy well. Currently awaiting the results. PHYSICAL EXAM: Vital Signs: Temperature 97.3, pulse 70, respirations 18, blood pressure 141/63, mean arterial pressure (MAP) of 89, pulse oximetry 92% on 2 liters nasal cannula. General: Resting comfortably in bed in no acute distress. Alert and oriented (A and O) times three. HEENT: Normocephalic, atraumatic. Cardiovascular: Regular rate and rhythm. Lungs: Poor respiratory effort. Mild rhonchi in the right lower base, otherwise clear. Distant lung sounds. Abdomen: Soft, nontender, nondistended. Extremities: No peripheral edema or tenderness. Skin: No visible lesions or bleeding. ASSESSMENT AND PLAN: 1. Shortness of breath, weakness. Secondary to right-sided cavitary lesion. Suspicion is high for malignancy and lower for pneumonia. Patient continues to require supplemental oxygen of two liters. Today he underwent a bronchoscopy with Dr. Grove. We are currently awaiting the results. The patient and his daughter and neighbor are aware that there is concern for malignancy. He is otherwise afebrile with a normal white count this morning and CRP mildly improved from 15 to 13. Status post 10 days of meropenem and 3 days of vancomycin. Continue fluconazole day 4. We will discontinue his meropenem given there is less concern for an infectious etiology currently and continue his fluconazole given his positive sputum for yeast-like organism. Blood cultures negative at 5 days. Methicillin-resistant Staphylococcus aureus (MRSA) screen negative. Oncology has been consulted for evaluation for possible malignancy as well. 2. Lesion of the right rib. Patient has undergone multiple skeletal imaging revealing degenerative changes. Bone scan 12/23/2018 showed degenerative changes of cervical and lumbar spine without any evidence of osseous malignancy or metastatic disease, although malignancy still remains in the differential and patient is to be evaluated by oncology. Continue pain control. Currently on Lidoderm patch. Status post opioid pain management. 3. Functional decline and weakness and disability. Likely secondary to the current acute illness, as stated above. Also has decreased oral intake. Increasing suspicion for possible malignancy. Encourage oral intake and monitor since intravenous (IV) fluids have been discontinued. Continue with physical therapy (PT) and occupational therapy (OT) with which he has been progressing very slowly. 4. Chronic kidney disease stage III to IV. Creatinine is around baseline 1.6 to 1.7 and making good urine. 5. Non-insulin dependent diabetes mellitus type 2. On glimepiride at home. Continue with insulin sliding scale, hypoglycemic protocol inpatient. 6. Chronic diastolic congestive heart failure with an ejection fraction (EF) of 65%, is euvolemic. Continue home furosemide. 7. Gastroesophageal reflux disease. Continue home Nexium. 8. Chronic constipation. Continue home Colace and simethicone and magnesium oxide. 9. Coronary artery disease with coronary artery bypass graft and a percutaneous coronary intervention (PCI). He underwent revascularization in March 2017 with a stent placed in the right coronary artery (RCA) and diagonal branch of left anterior descending (LAD). Continue Coreg and atorvastatin. He is normally on aspirin 325 mg at home. However, aspirin dose was decreased to 81 mg and Plavix was also held due to his anticipated bronchoscopy today. Will resume this tomorrow. Continue carvedilol. Currently stable without any chest pain. 10. History of CVA. Currently at baseline neurologically. Aspirin and Plavix changed, as mentioned above. 11. Hypertension. Blood pressure is controlled. Continue Coreg and furosemide. 12. Chronic obstructive pulmonary disease. Currently stable. Not in any exacerbation. Continue inhalers. 13. Dyslipidemia. Continue statin and Gemfibrozil. DEEP VEIN THROMBOSIS (DVT) PROPHYLAXIS: Anticoagulation on hold pending bronchoscopy today. Will resume heparin subcu afterwards. CODE STATUS: DO NOT RESUSCITATE (DNR)/DO NOT INTUBATE (DNI). DISPOSITION: Awaiting bronchoscopy results from today performed by Dr. Grove, 01/01/2019. Oncology has been consulted. There is concern that patient overall has a poor prognosis, especially given high suspicion of malignancy. This has been discussed with the family and patient on previous occasions, and they would like to await results before considering hospice. Continue working with PT, OT meanwhile.
[2019-01-02] MEDS: IPRATROPIUM 0.5MG/ALBUTEROL 2.5MG INH SOL UD 3ML (DUONEB)(J7620) NEB SCH ×4 (02:08→14:02)
[2019-01-02 04:00] VITALS: BP 134/60
[2019-01-02] MEDS: SLF 3 ML SYR IV SCH ×3 (04:25→22:00)
[2019-01-02 05:21] LABS: BASO % 0.1 % (0.0-1.0); HEMATOCRIT 25.9 % (42.0-52.0); HEMOGLOBIN 7.7 g/dl (13.5-17.5); LYMPH # 0.6 10^3/uL (1.5-4.5); LYMPH % 7.2 % (24.0-44.0); MEAN CORPUSCULAR HEMOGLOBIN 28.4 pg (27.0-33.0); MEAN CORPUSCULAR HGB CONC 29.7 g/dl (32.0-36.5); MEAN CORPUSCULAR VOLUME 95.6 fl (80.0-96.0); MONO # 0.6 10^3/uL (0.0-0.8); MONO % 7.2 % (0.0-5.0); NEUTROPHILS # 7.6 10^3/uL (1.8-7.7); NEUTROPHILS % 84.6 % (36.0-66.0); PLATELET COUNT, AUTOMATED 210 10^3/uL (150-450); RED BLOOD COUNT 2.71 10^6/uL (4.30-6.10); WHITE BLOOD COUNT 8.9 10^3/uL (4.0-10.0)
[2019-01-02 05:39] LABS: CALCIUM LEVEL 9.3 MG/DL (8.8-10.2); CREATININE FOR GFR 1.84 MG/DL (0.70-1.30); GLOMERULAR FILTRATION RATE 37.6 (>35); MAGNESIUM LEVEL 2.5 MG/DL (1.8-2.4); POTASSIUM SERUM 5.1 MEQ/L (3.5-5.1)
[2019-01-02] MEDS: HumaLOG INSULIN (NovoLOG) PER UNIT SC SCH ×4 (07:30→21:00)
[2019-01-02 08:00] VITALS: BP 113/55
[2019-01-02 08:08] LABS: C REACTIVE PROTEIN QUANTITATIV 11.2 MG/DL (0.00-0.30)
[2019-01-02] MEDS: FERROUS SULFATE 325MG TAB PO SCH (08:52)
[2019-01-02] MEDS: CLOPIDOGREL 75 MG TAB PO SCH (08:52)
[2019-01-02] MEDS: ASPIRIN ENTERIC 325 MG TAB PO SCH (08:52)
[2019-01-02] MEDS: CARVedilol 12.5 MG TAB PO SCH ×2 (08:52→19:52)
[2019-01-02] MEDS: HEPARIN SOD (PORCINE) 5000 UNITS/ML VIAL SC SCH ×2 (08:52→19:48)
[2019-01-02] MEDS: D5W/0.45% SODIUM CHLORIDE 1,000 ML IV SCH ×2 (08:53→19:39)
[2019-01-02] MEDS: amLODIPine 10 MG TAB PO SCH (08:53)
[2019-01-02] MEDS: GEMFIBROZIL 600 MG TAB PO SCH ×2 (08:53→17:25)
[2019-01-02] MEDS: SERTRALINE HCL 50 MG TAB PO SCH (08:53)
[2019-01-02] MEDS: PANTOPRAZOLE 40MG TAB (PROTONIX) PO SCH (08:53)
[2019-01-02] MEDS: MAGNESIUM OXIDE 400 MG TAB (MAG-OX) PO SCH (09:00)
[2019-01-02] MEDS: LIDOCAINE 5% (LIDODERM) PATCH TD SCH (09:02)
[2019-01-02] MEDS: ACETAMINOPHEN TAB 650MG DOSE (2X325MG) PO PRN (10:15)
--- NOTE | 2019-01-02 10:35 | CR ---
DATE OF SERVICE: 12/31/2018 REFERRING PHYSICIAN: Diana Garnica MD HISTORY OF PRESENT ILLNESS: This is an 83-year-old man with history of multiple comorbidities. The patient complained of bilateral shoulder pain, weaknesses, instability, diabetes, (CKD) stage III and IV, congestive heart failure (CHF) diastolic, ejection fraction (EF) of 65%, coronary artery disease (CAD) with coronary artery bypass grafting and percutaneous coronary intervention (PCI). Patient was admitted with shortness of breath, weakness 2/2 and was found to have right-sided cavitary lesion. Suspicion for pneumonia versus malignancy and was placed on antibiotic. Patient is scheduled in the morning for a bronchoscopy with potential biopsy by pulmonary. Oncology was consulted for possible malignancy and to followup. REVIEW OF SYSTEMS: The patient is quite nonverbal. His status is DO NOT RESUSCITATE/DO NOT INTUBATE. Counseled out potentially first a biopsy. However, the family had convinced the patient to undergo a bronchoscopy. Review of systems unable to obtained. The patient reports that he has mild shortness of breath. Denies chest pain. Remainder of review of systems unchanged as the previous documentation by Dr. Garnica on 12/31/2018. ALLERGIES: PENICILLIN, QUINOLONES, TETRACYCLINE. SOCIAL HISTORY: A former smoker of one pack per day for at least 35 years, quit in 1983. Denies history of alcohol use or other drugs. FAMILY HISTORY: No history of any cancers or lung disease. VITAL SIGNS: Temperature 97.9, pulse of 88, blood pressure 122/56, pulse oximetry 95% on oxygen flow rate of 1. PHYSICAL EXAMINATION: Awake, alert, oriented. Patient is in mild shortness of breath. Lying in bed. HEENT: Alert and anicteric CARDIAC: S1, S2, regular rhythm, rate, no added sounds LUNGS: Bilateral air entry, slightly decreased on the right side. ABDOMEN: Soft, obese. Organomegaly unable to be assessed. EXTREMITIES: Trace edema in the ankles. SKIN: Bruises on the hands. The patient was on heparin subcutaneous. LAB DATA: CBC and diff are unremarkable except for hemoglobin 8.6, platelets 211, neutrophil percent 81.6. Chemistry unremarkable except for creatinine 1.63, CRP elevated at 15.4. PT 15.3. IMAGING STUDIES: CT of the chest done on 12/23/2018 revealed a 3.7 cm cavitary lesion in the right base with fluid level undetectable by recent x-ray with associated bibasilar atelectasis and a small left lower lobe consolidation. ASSESSMENT: This is an 83-year-old male with multiple comorbid conditions. Patient presented with a cavitary lesion on the right base. The patient was seen by pulmonary, who recommended the bronchoscopy with potential biopsy. The patient will have navigation bronchoscopy plus biopsy as well as endoscopic ultrasound (EUS) with fine-needle aspiration (FNA) for his lymph nodes for diagnosis. PLAN: 1. Followup biopsy with pulmonary. 2. Anticoagulation of Plavix was held. Patient is on aspirin and was decreased from 325 to 81 mg prior to the procedure. 3. Heparin subcutaneously held with the last dose prior to his procedure. 4. Patient to be continued on antibiotic as per hospitalist service. Patient is on meropenem for possible cavitary pneumonia. 5. Infectious disease. Galactoman and [id number] were ordered. 6. Physical therapy (PT)/occupational therapy (OT). 7. Code status. DO NOT RESUSCITATE/DO NOT INTUBATE. The patient was seen and examined. The plan was formulated as above. I discussed the case with the registered nurse (RN), Deepthi. I spent 55 minutes during this encounter with more than 50 minutes counseling the patient. However, the patient appeared depressed and was unsure he understood the counseling. ALLERGIES: PENICILLIN, QUINOLONES, TETRACYCLINE. SOCIAL HISTORY: A former smoker of one pack per day for at least 35 years, quit in 1983. Denies history of alcohol use or other drugs. FAMILY HISTORY: No history of any cancers or lung disease. The patient will be followed inpatient. Should the patient subsequent to the diagnosis need to proceed with referral to hospice as previously was discussed, we will continue to followup and discuss and coordinate the care with his other care providers.
[2019-01-02 12:00] VITALS: BP 116/55
[2019-01-02] MEDS: FLUCONAZOLE 100 MG in APPROPRIATE DILUENT 1 EA IV SCH (13:22)
[2019-01-02 14:24] LABS: ACETYLCHOLINE RCPTOR BINDING A < 0.03 nmol/L (0.00-0.24); ACETYLCHOLINE RCPTOR BLOCK AB 10 % (0-25)
[2019-01-02 16:00] VITALS: BP 123/58
[2019-01-02] MEDS: ATORVASTATIN 20 MG TAB PO SCH (19:48)
--- NOTE | 2019-01-02 19:50 | IPN ---
DATE: 01/02/2019 SUBJECTIVE: The patient is examined at bedside and appears tired and answering simple questions. No reported events overnight. Currently still awaiting results from the bronchoscopy done yesterday by Dr. Brown. He continues to have poor oral intake and still having shortness of breath; however, is improving with titration down to 1 liter nasal cannula today. No other new complaints. No fevers, chills, nausea, vomiting, abdominal pain. PHYSICAL EXAMINATION: VITAL SIGNS: Temperature 97.6, pulse 73, respirations 20, blood pressure 113/55, MAP of 74, pulse oximetry 100% on 1 liter nasal cannula. GENERAL: Resting comfortably in a chair. No acute distress. In and out of sleep. Answering simple questions. HEENT: Normocephalic, atraumatic. Moist mucous membranes. CARDIOVASCULAR: Regular rate and rhythm. Normal S1, S2. LUNGS: Rhonchi in bilateral bases. No crackles or wheezing. Overall poor respiratory effort. ABDOMEN: Soft, nontender, nondistended. Hypoactive bowel sounds. EXTREMITIES: 2+ radial pulses. No peripheral edema or tenderness. LABORATORIES: WBC 8.9, hemoglobin and hematocrit 7.7 and 25.9, platelets 210. Sodium and potassium 137 and 5.1. Bicarbonate 27. BUN and creatinine 55 and 1.84. Calcium 9.3, magnesium 2.5, C-reactive protein 11.2. Microbiology and pathology from bronchoscopy on 01/01/2019 pending. No new imaging today. ASSESSMENT AND PLAN: 1. Shortness of breath and weakness in the setting of right sided cavitary lesion, most concerning for malignancy versus cavitary pneumonia. He is fortunately being titrated down on supplemental oxygen down to 1 liter of nasal cannula today. C-reactive protein is trending down to 11 from 13 yesterday. He continues on fluconazole day 4 and he is status post 10 days of meropenem, 3 days of vancomycin. Currently still awaiting bronchoscopy pathology and microbiology. Oncology has met with patient and family and the hospitalist service has also had discussions with the patient and family in prior meetings regarding long-term care and possibly hospice. Currently, the family would like to continue awaiting bronchoscopy results and possibly consider hospice down the line. In the meanwhile, we will continue supportive care with incentive spirometry and Acapella. Of note, the patient had a lesion on the right rib; however, imaging and bone scan only revealed degenerative changes, malignancy still remains on differential. Continue pain control with the Lidoderm patch. The patient has required opioids in the past but currently pain seems to be well controlled. 2. Functional decline, weakness, disability, overall is deconditioned. He also has malnutrition, bitemporal wasting and low albumin, poor oral intake over the past few weeks and is requiring supplemental IV fluids. Possible malignancy may also be contributing to this. He is not progressing with physical therapy (PT) and occupational therapy (OT). We will continue to encourage ambulation and supportive care. 3. Coronary artery disease with coronary artery bypass graft (CABG) and PCI. Underwent stent placement in the right coronary artery and the diagonal branch of the left anterior descending in March 2017. Continue Coreg and atorvastatin. His aspirin dose was initially reduced and Plavix was held in anticipation of bronchoscopy. We will resume his full dose aspirin and Plavix today. Currently otherwise stable without any cardiac dysfunction or complaints. We will hold Lasix given mildly rising creatinine and reassess tomorrow. 4. Anemia. The patient's hemoglobin was 10 on admission and has gradually decreased to 7.7 over the course of almost 1-1/2 weeks. It appears his baseline hemoglobin is around 11 to 12. There are no acute signs of bleeding. This may be secondary to his malignancy, as well as from his recent bronchoscopy. We will discuss long-term plan of care when the family returns in the room and consider transfusing, although this may not be of much benefit given his guarded prognosis. Currently, the patient is asymptomatic with current blood levels. Continue home iron supplementation. 5. Chronic kidney disease stage III to IV. Creatinine is at his baseline, 1.6 to around 1.8, which he is currently at. 6. Ayk-tyqglpt-enjddoanw diabetes mellitus type 2. On glimepiride at home. Continue insulin sliding scale and hypoglycemic protocol while inpatient with supplemental fluid. 7. Chronic diastolic congestive heart failure (CHF) with an ejection fraction of 65. Appears euvolemic on examination. Continue furosemide. 8. Gastroesophageal reflux disease (GERD). Continue proton pump inhibitor. 9. Chronic constipation. Continue home Colace, simethicone and magnesium oxide. 10. History of CVA. Currently at baseline. Continue aspirin and Plavix full dose, resumed today. 11. Hypertension. Blood pressure is well controlled on Coreg and Lasix is on hold, as mentioned above. 12. Dyslipidemia. Continue statin and gemfibrozil. 13. Deep vein thrombosis (DVT) prophylaxis. Heparin subcutaneously. CODE STATUS: DO NOT RESUSCITATE, DO NOT INTUBATE. DISPOSITION: Awaiting bronchoscopy results from 01/01/2019. Patient and family are aware of poor prognosis, considering hospice down the line but currently still wanting interventions.
[2019-01-02 20:00] VITALS: BP 127/60
[2019-01-02] MEDS: **NOTE PATIENT COMMENT** MISC XX SCH (21:00)
[2019-01-02 23:59] VITALS: BP 120/59
[2019-01-03 00:06] LABS: ASPERGILLUS GALACTOMANNAN AG 0.05 Index (0.00-0.49); FUNGITELL, SERUM <31 pg/mL (<80)
[2019-01-03] MEDS: IPRATROPIUM 0.5MG/ALBUTEROL 2.5MG INH SOL UD 3ML (DUONEB)(J7620) NEB SCH ×4 (02:00→19:55)
[2019-01-03 04:00] VITALS: BP 133/62
[2019-01-03] MEDS: SLF 3 ML SYR IV SCH ×3 (05:50→20:25)
[2019-01-03 05:59] LABS: BASO % 0.1 % (0.0-1.0); EOS # 0.3 10^3/uL (0.0-0.50); EOS % 3.4 % (0.0-3.0); HEMATOCRIT 24.7 % (42.0-52.0); HEMOGLOBIN 7.4 g/dl (13.5-17.5); LYMPH # 0.6 10^3/uL (1.5-4.5); LYMPH % 7.4 % (24.0-44.0); MEAN CORPUSCULAR HEMOGLOBIN 28.6 pg (27.0-33.0); MEAN CORPUSCULAR VOLUME 95.4 fl (80.0-96.0); MONO # 0.6 10^3/uL (0.0-0.8); MONO % 7.8 % (0.0-5.0); NEUTROPHILS # 6.6 10^3/uL (1.8-7.7); NEUTROPHILS % 80.2 % (36.0-66.0); PLATELET COUNT, AUTOMATED 183 10^3/uL (150-450); RED BLOOD COUNT 2.59 10^6/uL (4.30-6.10); WHITE BLOOD COUNT 8.2 10^3/uL (4.0-10.0)
[2019-01-03 06:17] LABS: CALCIUM LEVEL 8.4 MG/DL (8.8-10.2); CREATININE FOR GFR 1.9 MG/DL (0.70-1.30); GLOMERULAR FILTRATION RATE 36.2 (>35); MAGNESIUM LEVEL 2.5 MG/DL (1.8-2.4)
[2019-01-03 08:00] VITALS: BP 145/67
[2019-01-03] MEDS: amLODIPine 10 MG TAB PO SCH (08:12)
[2019-01-03] MEDS: PANTOPRAZOLE 40MG TAB (PROTONIX) PO SCH (08:13)
[2019-01-03] MEDS: CARVedilol 12.5 MG TAB PO SCH ×2 (08:13→20:23)
[2019-01-03] MEDS: SERTRALINE HCL 50 MG TAB PO SCH (08:13)
[2019-01-03] MEDS: FERROUS SULFATE 325MG TAB PO SCH (08:13)
[2019-01-03] MEDS: ASPIRIN ENTERIC 325 MG TAB PO SCH (08:13)
[2019-01-03] MEDS: CLOPIDOGREL 75 MG TAB PO SCH (08:13)
[2019-01-03] MEDS: HEPARIN SOD (PORCINE) 5000 UNITS/ML VIAL SC SCH ×2 (08:13→20:24)
[2019-01-03] MEDS: GEMFIBROZIL 600 MG TAB PO SCH ×2 (08:13→17:54)
[2019-01-03] MEDS: HumaLOG INSULIN (NovoLOG) PER UNIT SC SCH ×4 (08:14→20:24)
[2019-01-03] MEDS: LIDOCAINE 5% (LIDODERM) PATCH TD SCH (08:19)
[2019-01-03] MEDS: FUROSEMIDE 20 MG TAB PO SCH ×2 (09:33→17:54)
[2019-01-03] MEDS: D5W/0.45% SODIUM CHLORIDE 1,000 ML IV SCH ×2 (09:34→20:25)
[2019-01-03 12:00] VITALS: BP 126/63
[2019-01-03] MEDS: FLUCONAZOLE 100 MG in APPROPRIATE DILUENT 1 EA IV SCH (14:16)
[2019-01-03 16:00] VITALS: BP 128/61
--- NOTE | 2019-01-03 19:00 | IPN ---
DATE: 01/03/2019 SUBJECTIVE: Patient examined at bedside. No new changes from yesterday. No reported events overnight. Patient continues to have minimal appetite and overall fatigue. No fevers, chills, nausea, vomiting. Of note is bronchoscopy results from this past 01/01/2019, with Dr. Grove, results are today positive for xak-obpjl-glat carcinoma, which was relayed to the patient and his daughter. PHYSICAL EXAMINATION: VITAL SIGNS: Temperature 97.5, pulse 72, respirations 20, blood pressure 145/67, mean arterial pressure (MAP) of 93, pulse oximetry 93% on 1 liter nasal cannula. GENERAL: Resting comfortably in chair. No acute distress. Visibly fatigued. Speaks in short, simple sentences. Frail-appearing. Muscle wasting, overall. HEENT: Normocephalic, atraumatic. CARDIOVASCULAR: Regular rate and rhythm. Normal S1, S2. LUNGS: Rhonchi throughout. Poor respiratory effort. Possibly some secretions. Upper airway no crackles or wheezing. ABDOMEN: Soft, nontender, nondistended. Hypoactive bowel sounds. EXTREMITIES: 2+ radial pulses. No peripheral edema or calf tenderness. LABORATORY DATA: WBC 8.2, hemoglobin and hematocrit (H and H) 7.4 and 24.7, platelets 183. Sodium and potassium 140 and 5.0, BUN and creatinine 64 and 1.9, calcium 8.4, magnesium 2.5. MICROBIOLOGY: Bronchioalveolar lavage of the right lower lobe from 01/01/2019 is pending. Negative for fungal results. 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 ASSESSMENT AND PLAN: 1. 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 Patient is a poor candidate for any interventions at this point. The results were relayed to the patient and his daughter in the room. All questions were answered. The daughter and Mr. Bliss understand that he has a very poor prognosis and limited options at this point. They would like to further discuss hospice with our hospice team, as well as the rest of their family. Hospice has been consulted. In the meanwhile, we will continue supportive care with supplemental oxygen, incentive spirometry and acapella and pain control. Shortness of breath, functional decline, weakness, disability limit our options for him. Currently, he and his daughter did confirm again, that he is indeed a DO NOT RESUSCITATE/DO NOT INTUBATE. We will readdress possible hospice tomorrow after they have further discussed this with the rest of the family. Currently, they do want to continue current plan of care. Will continue physical therapy (PT)/occupational therapy (OT), although he is making minimal progress and will likely continue to decline further. 2. Coronary artery disease (CAD) with coronary artery bypass graft (CABG) and percutaneous coronary intervention (PCI) with stent placement in March 2017. On Coreg, atorvastatin, aspirin and Plavix. 3. Anemia. Likely related to his kidney disease. Patient's hemoglobin was 10 on admission and has been gradually declining to 7.4 today. This was also discussed with the patient and his daughter regarding the limited benefits of a blood transfusion at this point, given his overall poor prognosis. They are agreeable to currently hold off on transfusion, given his recent diagnosis of cancer. Continue iron supplementation and supportive care in the meanwhile. 4. Chronic kidney disease (CKD), stage III to IV. Creatinine mildly elevated from baseline of 1.6 to 1.8, currently is at 1.9. Again, this may be all related to his overall decline from his underlying malignancy. Will reassess tomorrow. Continue withholding nephrotoxins. 5. Non-insulin dependent diabetes mellitus type 2 (NIDDM2). Glimepiride at home. Continue ISS and hyperglycemic protocol in patient. 6. Chronic diastolic congestive heart failure (CHF). Ejection fraction (EF) with of 65%. Patient is continued on Lasix, although he is having minimal urine output at this point. Will continue to monitor. 7. Gastroesophageal reflux disease (GERD). Continue proton pump inhibitor (PPI). 8. Chronic constipation. Continue Colace, simethicone, magnesium oxide. 9. History of cerebrovascular accident (CVA). Continue aspirin and Plavix. 10. Hypertension. Controlled on Coreg and Lasix. 11. Dyslipidemia. Statin and gemfibrozil. 12. Deep venous thrombosis (DVT) prophylaxis. Heparin subcutaneous. CODE STATUS: DO NOT RESUSCITATE/DO NOT INTUBATE. DISPOSITION: Results from recent bronchoscopy were positive for malignancy. This was discussed with the daughter and Mr. Bliss. They would like to discuss this with the family and also with hospice services, which have been consulted. Will readdress tomorrow. In the meanwhile, continue current plan of care.
[2019-01-03 20:23] VITALS: BP 133/74
[2019-01-03] MEDS: ACETAMINOPHEN TAB 650MG DOSE (2X325MG) PO PRN (20:23)
[2019-01-03] MEDS: ATORVASTATIN 20 MG TAB PO SCH (20:23)
[2019-01-03] MEDS: **NOTE PATIENT COMMENT** MISC XX SCH (20:24)
[2019-01-03] MEDS ORDERED: traMADol 50 MG TAB PO ONE (21:45)
[2019-01-03 23:59] VITALS: BP 113/56
[2019-01-04] MEDS: IPRATROPIUM 0.5MG/ALBUTEROL 2.5MG INH SOL UD 3ML (DUONEB)(J7620) NEB SCH ×4 (02:00→20:00)
[2019-01-04 04:00] VITALS: BP 152/69
[2019-01-04] MEDS: SLF 3 ML SYR IV SCH (05:14)
[2019-01-04 05:43] LABS: BASO % 0.1 % (0.0-1.0); EOS # 0.2 10^3/uL (0.0-0.50); EOS % 2.5 % (0.0-3.0); HEMATOCRIT 24.7 % (42.0-52.0); HEMOGLOBIN 7.5 g/dl (13.5-17.5); LYMPH # 0.7 10^3/uL (1.5-4.5); LYMPH % 8.4 % (24.0-44.0); MEAN CORPUSCULAR HEMOGLOBIN 28.8 pg (27.0-33.0); MEAN CORPUSCULAR HGB CONC 30.4 g/dl (32.0-36.5); MONO # 0.7 10^3/uL (0.0-0.8); MONO % 8.1 % (0.0-5.0); NEUTROPHILS # 6.4 10^3/uL (1.8-7.7); NEUTROPHILS % 79.8 % (36.0-66.0); PLATELET COUNT, AUTOMATED 184 10^3/uL (150-450); WHITE BLOOD COUNT 8.1 10^3/uL (4.0-10.0)
[2019-01-04] MEDS ORDERED: FUROSEMIDE 40 MG/4 ML VIAL (J1940) IV ONE (05:45)
[2019-01-04 05:58] LABS: CALCIUM LEVEL 9.1 MG/DL (8.8-10.2); CREATININE FOR GFR 1.79 MG/DL (0.70-1.30); GLOMERULAR FILTRATION RATE 38.8 (>35); MAGNESIUM LEVEL 2.5 MG/DL (1.8-2.4)
[2019-01-04 08:00] VITALS: BP 135/62
[2019-01-04] MEDS: PANTOPRAZOLE 40MG TAB (PROTONIX) PO SCH ×2 (09:00→12:46)
[2019-01-04] MEDS: amLODIPine 10 MG TAB PO SCH ×2 (09:00→12:36)
[2019-01-04] MEDS: CARVedilol 12.5 MG TAB PO SCH ×3 (09:00→21:00)
[2019-01-04] MEDS: FUROSEMIDE 20 MG TAB PO SCH ×3 (09:00→17:34)
[2019-01-04] MEDS ORDERED: BISACODYL 10 MG SUPP PR PRN (11:45)
[2019-01-04] MEDS ORDERED: ATROPINE SULFATE 1% OP SOLN 2 ML BTL SL PRN (11:45)
[2019-01-04] MEDS ORDERED: SCOPOLAMINE 1MG TRANSDERMAL PATCH TOP PRN (11:45)
[2019-01-04] MEDS ORDERED: HYOSCYAMINE SULFATE 0.125 MG SUBL TABLET PO PRN (11:45)
[2019-01-04] MEDS ORDERED: ONDANSETRON 4 MG ORAL DISINTEGRATING TAB (Q0162 PER 1MG) PO PRN (11:45)
[2019-01-04] MEDS ORDERED: LORazepam 1 MG TAB PO PRN (11:45)
[2019-01-04] MEDS ORDERED: MORPHINE 10MG/0.5ML ORAL CONCENTRATE SOLUTION U/D SL PRN (11:45)
[2019-01-04] MEDS: LIDOCAINE 5% (LIDODERM) PATCH TD SCH (12:46)
[2019-01-04] MEDS: MORPHINE 10MG/0.5ML ORAL CONCENTRATE SOLUTION U/D SL PRN ×2 (13:59→22:12)
[2019-01-04] MEDS: LORazepam 2 MG/ML VIAL (J2060) IV PRN (17:34)
--- NOTE | 2019-01-04 18:50 | IPNPDOC ---
Text Note Date of Service The patient was seen on 01/04/19. NOTE Pt examined at bedside with 2 daughters [Desi Maldonado & HCP Jennifer Luz] & 1 son in room. Mr. Bliss is declining from prior days, noted to not make progress with PT/OT, more fatigued and confused today, and continuing to have minimal po intake. Discussed bronchoscopy results and terminal prognosis with family. Questions answered to family's satisfaction with nursing present at bedside. Family in agreement that he would not tolerate intervention for the malignancy, nor would he pursue medical treatment if he were able to make his decision. Two daughters and 1 son all decided on proceeding with COMFORT MEASURES ONLY. Gen. frail elderly man lying in bed in no acute distress he is resting comfortably HEENT not cooperative with exam moist mucous membranes no appreciable elevation CVP transmitted upper airway sounds Cardiovascular exam: S1-S2 regular noticed heart sounds appreciated Respiratory exam: Scattered bibasilar rales poor effort Abdominal exam bowel sounds present abdomen is grossly obese soft nontender to palpation Extremities trace edema cyanosis Psychological: Patient is not cooperative with testing or exam today he is lethargic MOLST form updated to reflect family's wishes for [employer] & DNR/DNI. All unnecessary meds will be d/c'd. Lasix will remain on board per family's request. Imaging & labs will be d/c'd. Hospice consulted, with goal to go home with Hospice. This will hopefully be set up tomorrow. In meanwhile, will continue supporting the pt and family and make him as comfortable as possible. I saw and evaluated the patient. I agree with the findings and plan of care as documented in the above note VSLexie, I+O VSLexie, I+O Laboratory Tests 01/04/19 05:26 Red Blood Count 2.60 L, Mean Corpuscular Volume 95.0, Mean Corpuscular Hemoglobin 28.8, Mean Corpuscular Hemoglobin Concent 30.4 L, Red Cell Distribution Width 14.6 H, Neutrophils (%) (Auto) 79.8 H, Lymphocytes (%) (Auto) 8.4 L, Monocytes (%) (Auto) 8.1 H, Eosinophils (%) (Auto) 2.5, Basophils (%) (Auto) 0.1, Neutrophils # (Auto) 6.4, Lymphocytes # (Auto) 0.7 L, Monocytes # (Auto) 0.7, Eosinophils # (Auto) 0.2, Basophils # (Auto) 0.0, Calcium Level 9.1 Vital Signs Date Time Temp Pulse Resp B/P (MAP) Pulse Ox O2 Delivery O2 Flow Rate FiO2 01/04/19 16:00 3.0 01/04/19 14:29 20 01/04/19 08:00 98.2 61 135/62 (86) 97 01/03/19 19:56 Nasal Cannula I&O- Last 24 Hours up to 6 AM 01/04/19 06:00 Intake Total 1250 ml Output Total 1150 ml Balance 100 ml AUSTEN FRY DO Jan 04, 2019 18:50 AALIYAH BETANCOURT MD Jan 05, 2019 15:00
[2019-01-04] MEDS: **NOTE PATIENT COMMENT** MISC XX SCH (21:00)
[2019-01-05] MEDS: MORPHINE 10MG/0.5ML ORAL CONCENTRATE SOLUTION U/D SL PRN ×7 (00:42→23:08)
[2019-01-05] MEDS: LORazepam 2 MG/ML VIAL (J2060) IV PRN ×2 (01:24→12:15)
[2019-01-05] MEDS: IPRATROPIUM 0.5MG/ALBUTEROL 2.5MG INH SOL UD 3ML (DUONEB)(J7620) NEB SCH ×5 (02:00→20:53)
[2019-01-05] MEDS: FUROSEMIDE 20 MG TAB PO SCH ×2 (08:23→16:34)
[2019-01-05] MEDS: CARVedilol 12.5 MG TAB PO SCH ×2 (08:23→19:18)
[2019-01-05] MEDS: LIDOCAINE 5% (LIDODERM) PATCH TD SCH (08:24)
[2019-01-05] MEDS: PANTOPRAZOLE 40MG TAB (PROTONIX) PO SCH (08:24)
[2019-01-05] MEDS: amLODIPine 10 MG TAB PO SCH (08:24)
[2019-01-05] MEDS: **NOTE PATIENT COMMENT** MISC XX SCH (21:00)
--- NOTE | 2019-01-06 19:05 | DS.PDOC ---
Discharge Summary General Date of Admission Dec 23, 2018 at 11:39 Date of Discharge 01/05/19 Attending Physician: AALIYAH BETANCOURT MD Specialist/Consultants Involve: LORENZA SNOW MD Discharge Summary DISCHARGE DIAGNOSIS: SECONDARY DIAGNOSIS: 1. 2. 3. 4. PROCEDURES PERFORMED DURING STAY: [None]. CONSULTANTS: HOSPITAL COURSE: . DISCHARGE MEDICATIONS: Please see below. ALLERGIES: Please see below. SUBJECTIVE: Patient [otherwise patient denies chest pain, shortness, breath, nausea, vomiting, fevers, chills] OBJECTIVE: PHYSICAL EXAMINATION: VITAL SIGNS: Please see below. GENERAL: [Pleasant sitting up in bed awake alert oriented speaking in complete sentences no acute distress] HEENT: [Moist mucous membranes no elevation and CVP] CARDIOVASCULAR: [S1 S2 regular no additional heart sounds appreciated.] RESPIRATORY: [Clear to auscultation bilaterally.] ABDOMINAL: [Bowel sounds present abdomen soft and non-tender] EXTREMITIES: [No clubbing, cyanosis, edema] NEUROLOGICAL: [Spontaneously moves all 4 extremities cranial 2 through 12 grossly intact, no gross focal deficits appreciated] PSYCHOLOGICAL: [Appropriate] LABORATORY DATA, MICROBIOLOGY: Please see below. IMAGING STUDIES: ECHOCARDIOGRAM: DVT prophylaxis ordered: ASSESSMENT AND PLAN: This is a -year-old [GENDER] with . PROBLEMS: 1. : . 2. : . 3. : . DISPOSITION: . DISCHARGE CONDITION: [Improved and Stable]. [PROGNOSIS]: FOLLOW UP: ACTIVITY: [As prior to admission]. DIET: [As prior to admission] TIME SPENT ON DISCHARGE: [50 minutes] Vital Signs/I&Os Vital Signs Date Time Temp Pulse Resp B/P (MAP) Pulse Ox O2 Delivery O2 Flow Rate FiO2 01/05/19 19:27 20 01/05/19 04:00 3.0 01/04/19 08:00 98.2 61 135/62 (86) 97 01/03/19 19:56 Nasal Cannula Microbiology Microbiology 01/01/19 Acid Fast Stain - Final, Resulted 01/01/19 Mycobacterial Culture, Resulted Pending 01/01/19 Fungal Smear, Resulted Pending 01/01/19 Fungal Culture, Resulted Pending 01/01/19 Gram Stain - Final, Complete 01/01/19 Bronchoalveolar Lavage Culture - Final, Complete 12/29/18 MRSA Screen - Final, Complete Discharge Medications Scheduled Aspirin (Aspirin) 325 Mg Tab, 325 MG PO DAILY, (Reported) Atorvastatin Calcium (Atorvastatin Calcium) 40 Mg Tab, 40 MG PO QHS, (Reported) Calcitriol (Calcitriol) 0.25 Mcg Cap, 0.25 MCG PO DAILY, (Reported) Carvedilol (Carvedilol) 12.5 Mg Tablet, 12.5 MG PO BID, (Reported) Clopidogrel Bisulfate (Plavix) 75 Mg Tab, 75 MG PO DAILY, (Reported) Esomeprazole Magnesium (Nexium) 40 Mg Capsule.dr, 40 MG PO DAILY, (Reported) Ferrous Sulfate (Ferrous Sulfate) 325 Mg Tab, 325 MG PO DAILY, (Reported) Furosemide (Furosemide) 20 Mg Tablet, 20 MG PO BID, (Reported) Gemfibrozil (Gemfibrozil) 600 Mg Tab, 600 MG PO BID, (Reported) Glimepiride (Glimepiride) 2 Mg Tablet, 2 MG PO QPM, (Reported) Magnesium Oxide (Magnesium) 400 Mg Capsule, 400 MG PO DAILY, (Reported) Tiotropium [place] Monohydrate (Spiriva) 18 Mcg Cap.w.dev, 1 CAP INH DAILY, (Reported) Scheduled PRN Albuterol Sulfate (Proair Hfa) 108 Mcg/Act Aer, 2 PUFF INH Q4H PRN for SHORTNESS OF BREATH, (Reported) Calcium Carbonate (Calcium) 500 Mg Chw, 500 MG PO Q4H PRN for HEARTBURN, (Reported) Docusate Sodium (Colace) 100 Mg Cap, 100 MG PO BID PRN for CONSTIPATION, (Reported) Nitroglycerin (Nitrostat) 0.4 Mg Subl, 0.4 MG SL NITRO PRN for CHEST PAIN, (Reported) Simethicone (Simethicone) 180 Mg Capsule, 180 MG PO TID PRN for GAS PAIN, (Reported) Allergies Coded Allergies: Penicillins (Verified Allergy, Unknown, 12/02/18) Quinolones (Verified Adverse Reaction, Mild, N/V, 12/10/18) tetracycline (Verified Adverse Reaction, Mild, N/V, 12/10/18) AUSTEN FRY DO Jan 06, 2019 19:05
[2019-01-08 11:05] LABS: VOLTAGE-GATED POTASSIUM CHANNE SEE SEPARATE REPORT
== END 2019-01-06 00:50 | disposition expired | DRG 167 ==
LOC: M ED 07:05 → M ED INP 11:39 → M PCU 14:10
PROVIDERS: ADMIT Internal Medicine; ATTEND Internal Medicine
PROC: 0BBF8ZX Excision of Right Lower Lung Lobe, Via Natural or Artificial Opening Endoscopic, Diagnostic (ICD-10-PCS; principal; 2019-01-01 07:30)
PROC: 07B74ZX Excision of Thorax Lymphatic, Percutaneous Endoscopic Approach, Diagnostic (ICD-10-PCS; 2019-01-01 07:30)
DX: C34.31 Malignant neoplasm of lower lobe, right bronchus or lung (principal); N18.4 Chronic kidney disease, stage 4 (severe); I50.32 Chronic diastolic (congestive) heart failure; I13.0 Hypertensive heart and chronic kidney disease with heart failure and stage 1 through stage 4 chronic kidney disease, or unspecified chronic kidney disease; J96.11 Chronic respiratory failure with hypoxia; E46 Unspecified protein-calorie malnutrition; C77.0 Secondary and unspecified malignant neoplasm of lymph nodes of head, face and neck; Z51.5 Encounter for palliative care; Z66 Do not resuscitate; I25.10 Atherosclerotic heart disease of native coronary artery without angina pectoris; E11.22 Type 2 diabetes mellitus with diabetic chronic kidney disease; R53.81 Other malaise; J44.9 Chronic obstructive pulmonary disease, unspecified; M50.30 Other cervical disc degeneration, unspecified cervical region; E78.5 Hyperlipidemia, unspecified; D63.0 Anemia in neoplastic disease; M51.36 Other intervertebral disc degeneration, lumbar region; Z99.81 Dependence on supplemental oxygen; Z95.5 Presence of coronary angioplasty implant and graft; Z79.82 Long term (current) use of aspirin; Z79.02 Long term (current) use of antithrombotics/antiplatelets; Z79.84 Long term (current) use of oral hypoglycemic drugs; Z79.899 Other long term (current) drug therapy; Z88.0 Allergy status to penicillin; Z88.1 Allergy status to other antibiotic agents; Z87.891 Personal history of nicotine dependence; K59.09 Other constipation; D63.1 Anemia in chronic kidney disease